=== PATIENT | female | born 1985 | race Hispanic/Latino ===

== ENCOUNTER 2021-09-08 17:34 | Inpatient (IN) | payer SELFPAY ==
[2021-09-08] MEDS ORDERED: NALOXONE 0.4 MG/1 ML INJ IV PRN (18:20)
[2021-09-08] MEDS ORDERED: ONDANSETRON 4 MG/2 ML INJ IV ONE (18:21)
--- NOTE | 2021-09-08 18:21 | Emergency Department Report ---
ED General Adult HPI - General Chief complaint: Medical Clearance Stated complaint: Patient has no complaint Time Seen by Provider: 09/08/21 18:08 Source: patient, EMS ( EMS documentation not available at time of chart dictation ), RN notes reviewed Mode of arrival: Stretcher Limitations: No Limitations - History of Present Illness Initial comments: The patient was evaluated in the emergency department for symptoms described in the history of present illness. He/she was evaluated in the context of the global COVID-19 pandemic, which necessitated consideration that the patient might be at risk for infection with the virus that causes COVID-19. In stitutional protocols and algorithms that pertain to the evaluation of patients at risk for COVID-19 are in a state of rapid change based on information released by regulatory bodies including the CDC and federal and state organizations. These policies and algorithms were followed during the patient's care in the emergency department. Please note that these policies, procedures and recommendations changed on a rapid basis. During the history and physical examination, I am chaperoned by nurse Lazara Garrison This is a 36-year-old female who reportedly admits to heroin addiction, who was reportedly found in bed unresponsive, next to her , 911 was activated. The patient has no recollection of these events. The patient denies physical pain. The patient did not receive Narcan. The patient usually snorts heroin. She did not snort heroin today. She is not homicidal or suicidal. Patient reports that she is not experiencing hallucinations. The patient does endorse that she feels somewhat anxious. Reportedly family members called 911. -: This afternoon - Related Data Previous Rx's Medication Instructions Recorded Last Taken Type Naloxone HCl [Narcan Nasal Howell] 4 mg NS PRN PRN #1 spray 09/08/21 Unknown Rx Ondansetron [Zofran Odt] 4 mg PO Q8HR PRN #20 tab.rapdis 09/08/21 Unknown Rx Allergies Allergy/AdvReac Type Severity Reaction Status Date / Time No Known Allergies Allergy Unverified 09/08/21 18:00 ED Review of Systems ROS: Stated complaint: SUBSTANCE ABUSE Other details as noted in HPI Constitutional: malaise, weakness. denies: fever Respiratory: denies: cough Cardiovascular: denies: chest pain Gastrointestinal: denies: abdominal pain Neurological: weakness, confusion Psychiatric: anxiety. denies: depression, auditory hallucinations, visual hallucinations, homicidal thoughts, suicidal thoughts ED Past Medical Hx - Past Medical History Previous Medical History?: No - Medications Home Medications: Home Medications Medication Instructions Recorded Confirmed Last Taken Type Naloxone HCl [Narcan Nasal Howell] 4 mg NS PRN PRN #1 spray 09/08/21 Unknown Rx Ondansetron [Zofran Odt] 4 mg PO Q8HR PRN #20 tab.rapdis 09/08/21 Unknown Rx ED Physical Exam - General Limitations: No Limitations General appearance: alert, anxious, in distress, obese - Head Head exam: Present: atraumatic, normocephalic - Eye Eye exam: Present: normal appearance, PERRL, EOMI. Absent: nystagmus - ENT ENT exam: Present: normal exam, normal orophraynx, mucous membranes moist, normal external ear exam - Neck Neck exam: Present: normal inspection, full ROM. Absent: tenderness, meningismus - Respiratory Respiratory exam: Present: normal lung sounds bilaterally. Absent: respiratory distress, wheezes, rales, rhonchi, stridor, decreased breath sounds - Cardiovascular Cardiovascular Exam: Present: regular rate, normal rhythm, normal heart sounds. Absent: bradycardia, tachycardia, irregular rhythm, systolic murmur, diastolic murmur, rubs, gallop - GI/Abdominal GI/Abdominal exam: Present: soft. Absent: distended, tenderness, guarding, rebound, rigid, pulsatile mass - Extremities Exam Extremities exam: Present: normal inspection, full ROM, other (2+ pulses noted in the bilateral upper and lower extremities. There is no palpable cord. negative Homans sign. Muscular compartments are soft. The pelvis is stable.). Absent: pedal edema, calf tenderness - Back Exam Back exam: Present: normal inspection. Absent: tenderness, CVA tenderness (R), CVA tenderness (L), paraspinal tenderness, vertebral tenderness - Neurological Exam Neurological exam: Present: alert, oriented X3, other (No facial droop. Tongue midline. Extraocular movements intact bilaterally. Facial sensation intact to light touch in V1, V2, V3 distribution bilaterally. 5 and a 5 strength in 4 extremities. Sensation intact to light touch in 4 extremities.). Absent: motor sensory deficit - Psychiatric Psychiatric exam: Present: anxious. Absent: homicidal ideation, suicidal ideation - Skin Skin exam: Present: warm, dry, intact, normal color. Absent: rash ED Course Vital Signs 09/08/21 18:51 Temperature 98.1 F Pulse Rate 70 Respiratory 21 Rate Blood Pressure 133/67 [Left] O2 Sat by Pulse 100 Oximetry - Reevaluation(s) Reevaluation #1: 09/08/21 20:20 Differential diagnosis, including but not limited to: Electrolyte derangement, intracranial injury, narcotic dependence, accidental overdose Assessment and plan: 36-year-old female who is clinically sober with a GCS of 15, with no evidence of trauma, who is awake and alert to name, year, and location, who was found minimally responsive next to her , without requiring Narcan. She has no medical complaints at this time. Suspect accidental overdose and that patient is not being forthcoming. The patient is agreeable to observation in the emergency room, laboratory studies and noncontrast CT scan of the brain. She does not meet criteria for 1013 hold or involuntary confinement. She has thus far been observed in department for hours without clinical decompensation, or loss of consciousness. Leukocytosis is most likely a stress reaction. Currently awaiting remainder of laboratory studies 09/08/21 20:49 Patient is found to have evidence of mild dehydration, metabolic acidosis, rhabdomyolysis, and hypokalemia. Serum toxicology studies so far are essentially unremarkable. No evidence of respiratory compromise at this time. IV fluids ordered. Potassium supplementation ordered. I suspect that leukocytosis is a stress reaction The patient is not encephalopathic at this time. She is not altered at this time. We have recommended admission to the medical service for supportive care and treatment of rhabdomyolysis. Suspect that rhabdo secondary to overdose, which in turn caused unresponsiveness, which is now resolved. Discussed all findings with patient and family with her permission. She is agreeable to admission and hospitalization Reevaluation #2: 09/08/21 20:50 Vital signs and laboratory studies reviewed and appreciated. Do not suspect invasive bacterial infection at this time. We appreciate that the patient is ruling in for systemic inflammatory response syndrome. Suspect that vital sign abnormalities and laboratory abnormalities likely secondary to overdose, and white blood cell count is likely a stress reaction/stress demargination 09/08/21 21:35 Patient remains awake and alert. Remainder of laboratory studies are essentially unremarkable. She is agreeable to admission and hospitalization. Hospital physician, Dr. Miller to admit to [facility] ED Medical Decision Making - Lab Data Result diagrams: 09/08/21 19:35 09/08/21 19:35 Vital Signs 09/08/21 18:51 Temperature 98.1 F Pulse Rate 70 Respiratory 21 Rate Blood Pressure 133/67 [Left] O2 Sat by Pulse 100 Oximetry - EKG Data -: EKG Interpreted by Pr - EKG Data 09/08/21 20:16 The EKG is interpreted at 18: 27 69 bpm, sinus rhythm, normal axis, normal P wave axis, QTC 5 4 5 ms, motion artifact. Abnormal EKG. Not a STEMI. There is no prior for comparison - Radiology Data Radiology results: pending, report reviewed, image reviewed CT head/brain wo con INDICATION: Overdose, unresponsiveness, amnesia. TECHNIQUE: Routine CT head. All CT scans at this location are performed using CT dose reduction for ALARA by means of automated exposure control. COMPARISON: None. FINDINGS: Intracranial: Mclean-white matter differentiation is maintained. No intracranial hemorrhage. No extra axial collection. No hydrocephalus. No herniation. Sinuses: Paranasal sinuses and mastoid air cells are essentially clear. Orbits: Globes are intact. Calvarium: No acute fracture. IMPRESSION: 1. No acute intracranial abnormality. Signer Name: Peter Villela MD Signed: 09/08 6:00 PM Critical Care Time: Yes Critical care time in (mins) excluding proc time.: 35 Critical care attestation.: If time is entered above; I have spent that time in minutes in the direct care of this critically ill patient, excluding procedure time. ED Disposition Clinical Impression: Opioid dependence, Transient alteration of awareness, Rhabdomyolysis, Hypokalemia, Metabolic acidosis Disposition: 09 ADMITTED INPATIENT Is pt being admited?: Yes Does the pt Need Aspirin: No Condition: Good Instructions: Opioid Use Disorder Additional Instructions: Do not drive or operate motor vehicles for the next 6 months or until cleared to do so by primary care doctor. Use the Narcan medication as directed, and nausea medication as needed and directed. Avoid consumption and utilization of alcohol, tobacco, smoke products and opioids. Consumption of opioids may cause addiction, , paralysis, loss of quality of life, and dependence. Follow-up with an outpatient primary care doctor, psychiatrist or mental health specialist as soon as possible. Please follow-up with an outpatient mental health specialist within the next week. Avoid consumption of alcohol, tobacco, smoke products and recreational drugs. Please return to the emergency room right away with new pain, worsened pain, migration of pain, projectile vomiting, change in mental status, confusion, inability tolerate liquid feeds, new, worsened or different symptoms not present on the initial emergency room evaluation professional and Agency Contacts To help [facility] (17/09) [place] Crisis Line: Suicide Prevention Line: Crisis Text Line: Text ``START to 243490 Emergency: 911 Outpatient [facility] Behavioral Health Resources: [place]: [facility] [address], [place] [address] [place]: [facility] [address] [place] [address] Saturday thru Saturday - 8am - 5pm Call to schedule an assessment for mental health and substance abuse programs [facility] Address: [address] [place] [address] Saturday thru Saturday- 7am-2pm [facility] Address: [address] [place] [address] Saturday thru Saturday: 8:30AM-5PM Please return to the emergency room right away with new pain, worsened pain, migration of pain, projectile vomiting, change in mental status, confusion, inability tolerate liquid feeds, new, worsened or different symptoms not present on the initial emergency room evaluation Prescriptions: Naloxone HCl [Narcan Nasal Howell] 4 mg NS PRN PRN #1 spray PRN Reason: Opioid Reversal Ondansetron [Zofran Odt] 4 mg PO Q8HR PRN #20 tab.rapdis PRN Reason: Nausea Referrals: [facility] [Provider Group] - 3-5 Days [facility] [Outside] - 3-5 Days [facility] [Outside] - 3-5 Days
--- NOTE | 2021-09-08 19:04 | Cat Scan Report ---
CT head/brain wo con INDICATION: Overdose, unresponsiveness, amnesia. TECHNIQUE: Routine CT head. All CT scans at this location are performed using CT dose reduction for A CHASE by means of automated exposure control. COMPARISON: None. FINDINGS: Intracranial: Mclean-white matter differentiation is maintained. No intracranial hemorrhage. No extra a xial collection. No hydrocephalus. No herniation. Sinuses: Paranasal sinuses and mastoid air cells are essentially clear. Orbits: Globes are intact. Calvarium: No acute fracture. IMPRESSION: 1. No acute intracranial abnormality. Signer Name: Peter Villela MD Signed: 09/08/2021 7:00 PM Workstation Name: [id number]
[2021-09-08] MEDS ORDERED: ONDANSETRON 4 MG ODT TAB PO ONE (19:19)
[2021-09-08 20:00] LABS: Hematocrit 46.1 % (30.3-42.9); Hemoglobin 15.5 gm/dl (10.1-14.3); Mean Corpuscular HGB Conc 34 % (30-34); Mean Corpuscular Volume 87 fl (79-97); Platelet Count 426 K/mm3 (140-440); Red Blood Count 5.28 M/mm3 (3.65-5.03); Red Cell Distribution Width 13.7 % (13.2-15.2)
[2021-09-08 20:29] LABS: Alanine Aminotransferase 41 units/L (7-56); Blood Urea Nitrogen 18 mg/dL (7-17); Calcium 10.6 mg/dL (8.4-10.2); Hemolysis Index 39
[2021-09-08 20:39] LABS: BUN/Creatinine Ratio 26
[2021-09-08] MEDS ORDERED: SODIUM CHLORIDE 0.9% 1000 ML 2,000 ML IV ONE (20:43)
[2021-09-08] MEDS ORDERED: POTASSIUM CHLORIDE ER 20 MEQ TAB PO ONE (20:43)
[2021-09-08] MEDS ORDERED: ACETAMINOPHEN 325 MG TAB PO PRN (22:08)
[2021-09-08] MEDS ORDERED: MORPHINE 2 MG/1 ML INJ IV PRN (22:08)
[2021-09-08] MEDS ORDERED: ONDANSETRON 4 MG/2 ML INJ IV PRN (22:08)
[2021-09-08] MEDS ORDERED: MORPHINE 4 MG/1 ML INJ IV PRN (22:08)
[2021-09-08] MEDS ORDERED: ALBUTEROL 2.5 MG/3 ML NEBU IH PRN (22:08)
--- NOTE | 2021-09-08 22:15 | History and Physical Report ---
History of Present Illness Date of examination: 09/08/21 Date of admission: 09/08/21 Chief complaint: Opiate overdose History of present illness: 36-year-old female with history of heroin addiction, who was reportedly found in bed unresponsive, next to her , 911 was activated. The patient has no recollection of these events. The patient denies physical pain. The patient did not receive Narcan. The patient usually snorts heroin. She did not snort heroin today. She is not homicidal or suicidal. Patient reports that she is not experiencing hallucinations. The patient does endorse that she feels somewhat anxious. Reportedly family members called 911. In the emergency room initial CT scan of the head shows no acute intracranial abnormality. Patient WBC is 26.9, potassium 3.4 bicarb 22 total CK5 143. We are going to admit the patient we will put the patient on IV fluid, antibiotic and potassium is supplemented Past History Past Medical History: other (Heroin addiction) Past Surgical History: No surgical history Social history: other (Heroin addiction) Family history: no significant family history Medications and Allergies Allergies Allergy/AdvReac Type Severity Reaction Status Date / Time No Known Allergies Allergy Unverified 09/08/21 18:00 Home Medications Medication Instructions Recorded Confirmed Last Taken Type Naloxone HCl [Narcan Nasal [place]] 4 mg NS PRN PRN #1 spray 09/08/21 Unknown Rx Ondansetron [Zofran Odt] 4 mg PO Q8HR PRN #20 tab.rapdis 09/08/21 Unknown Rx Active Meds: Active Medications Acetaminophen (Acetaminophen 325 Mg Tab) 650 mg PO Q4H PRN PRN Reason: Pain MILD(1-3)/Fever >100.5/JERONIMO Albuterol (Albuterol 2.5 Mg/3 Ml Nebu) 2.5 mg IH Q3HRT PRN PRN Reason: Shortness Of Breath Albuterol/Ipratropium (Ipratropium/Albuterol Sulfate 3 Ml Ampul.Neb) 1 ampul IH Q6HRT SAMANTHA Famotidine (Famotidine 20 Mg/2 Ml Inj) 20 mg IV BID SAMANTHA Heparin Sodium (Porcine) (Heparin 5,000 Unit/1 Ml Vial) 5,000 unit SUB-Q Q12HR SAMANTHA Dextrose/Sodium Chloride (D5/0.45ns) 1,000 mls @ 100 mls/hr IV DIRECT SAMANTHA Ceftriaxone Sodium (Rocephin/Ns 2 Gm/100 Ml) 2 gm in 100 mls @ 200 mls/hr IV Q24H SAMANTHA; Protocol Morphine Sulfate (Morphine 2 Mg/1 Ml Inj) 2 mg IV Q4H PRN PRN Reason: Pain, Moderate (4-6) Morphine Sulfate (Morphine 4 Mg/1 Ml Inj) 4 mg IV Q4H PRN PRN Reason: Pain , Severe (7-10) Naloxone HCl (Naloxone 0.4 Mg/1 Ml Inj) 0.1 mg IV Q2MIN PRN PRN Reason: Res Rate </= 8 or 02 SAT < 92% Ondansetron HCl (Ondansetron 4 Mg/2 Ml Inj) 4 mg IV Q8H PRN PRN Reason: Nausea And Vomiting Sodium Chloride (Sodium Chloride 0.9% 10 Ml Flush Syringe) 10 ml IV BID SAMANTHA Sodium Chloride (Sodium Chloride 0.9% 10 Ml Flush Syringe) 10 ml IV PRN PRN PRN Reason: LINE FLUSH Review of Systems All systems: negative Constitutional: weakness (Confusion), malaise, other (Unresponsiveness) Exam - Constitutional Vitals: Temp Pulse Resp BP Pulse Ox 98.1 F 70 21 133/67 100 09/08/21 18:51 09/08/21 18:51 09/08/21 18:51 09/08/21 18:51 09/08/21 18:51 General appearance: Present: no acute distress, well-nourished - EENT Eyes: Present: PERRL ENT: hearing intact, clear oral mucosa - Neck Neck: Present: supple, normal ROM - Respiratory Respiratory effort: normal Respiratory: bilateral: CTA - Cardiovascular Heart Sounds: Present: S1 & S2. Absent: rub, click - Extremities Extremities: pulses symmetrical, No edema Peripheral Pulses: within normal limits - Abdominal General gastrointestinal: Present: soft, non-tender, non-distended, normal bowel sounds Female genitourinary: Present: normal - Integumentary Integumentary: Present: clear, warm, dry - Musculoskeletal Musculoskeletal: gait normal, strength equal bilaterally - Neurologic Neurologic: CNII-XII intact, moves all extremities Results - Labs CBC & Chem 7: 09/08/21 19:35 09/08/21 19:35 Labs: Laboratory Last Values WBC 26.9 K/mm3 (4.5-11.0) H 09/08/21 19:35 RBC 5.28 M/mm3 (3.65-5.03) H 09/08/21 19:35 Hgb 15.5 gm/dl (10.1-14.3) H 09/08/21 19:35 Hct 46.1 % (30.3-42.9) H 09/08/21 19:35 MCV 87 fl (79-97) 09/08/21 19:35 MCH 29 pg (28-32) 09/08/21 19:35 MCHC 34 % (30-34) 09/08/21 19:35 RDW 13.7 % (13.2-15.2) 09/08/21 19:35 Plt Count 426 K/mm3 (140-440) 09/08/21 19:35 Sodium 138 mmol/L (137-145) 09/08/21 19:35 Potassium 3.4 mmol/L (3.6-5.0) L 09/08/21 19:35 Chloride 97.4 mmol/L (98-107) L 09/08/21 19:35 Carbon Dioxide 22 mmol/L (22-30) 09/08/21 19:35 Anion Gap 22 mmol/L 09/08/21 19:35 BUN 18 mg/dL (7-17) H 09/08/21 19:35 Creatinine 0.7 mg/dL (0.6-1.2) 09/08/21 19:35 Estimated GFR > 60 ml/min 09/08/21 19:35 BUN/Creatinine Ratio 26 % 09/08/21 19:35 Glucose 133 mg/dL (65-100) H 09/08/21 19:35 Calcium 10.6 mg/dL (8.4-10.2) H 09/08/21 19:35 Total Bilirubin 0.60 mg/dL (0.1-1.2) 09/08/21 19:35 AST 88 units/L (5-40) H 09/08/21 19:35 ALT 41 units/L (7-56) 09/08/21 19:35 Alkaline Phosphatase 123 units/L (35-129) 09/08/21 19:35 Total Creatine Kinase 5143 units/L (30-135) H 09/08/21 19:35 Total Protein 7.8 g/dL (6.3-8.2) 09/08/21 19:35 Albumin 5.0 g/dL (3.9-5) 09/08/21 19:35 Albumin/Globulin Ratio 1.8 % 09/08/21 19:35 HCG, Quant < 2 mIU/mL (0-4) 09/08/21 19:35 Salicylates < 0.3 mg/dL (2.8-20.0) L 09/08/21 19:35 Acetaminophen 5.0 ug/mL (10.0-30.0) L 09/08/21 19:35 Plasma/Serum Alcohol < 0.01 % (0-0.07) 09/08/21 19:35 - Imaging and Cardiology CT Scan - head: report reviewed Assessment and Plan VTE prophylaxis?: Chemical Plan of care discussed with patient/family: Yes - Patient Problems (1) Rhabdomyolysis Current Visit: Yes Status: Acute Plan to address problem: Admit the patient to the telemetry. NPO. IV fluid D5 half-normal saline at the rate of 125 cc/h. We will recheck the CK level in the morning. (2) Hypokalemia Current Visit: Yes Status: Acute Plan to address problem: Potassium is supplemented. Recheck BMP in the morning (3) Metabolic acidosis Current Visit: Yes Status: Acute Plan to address problem: D5 half-normal saline at the rate of 125 cc/h. We rehydrate the patient is slowly. Recheck BMP in the morning (4) Opioid dependence Current Visit: Yes Status: Acute Plan to address problem: We counseled the patient regarding quit taking opioid. We will consult psych for evaluation (5) Transient alteration of awareness Current Visit: Yes Status: Acute Plan to address problem: Most likely secondary to opiate overdose. NPO. Oxygen via nasal cannula t reater pulmonate IV fluid D5 half-normal saline at the rate of 125 cc/h. We will monitor the patient closely. CT scan of the head shows no acute intracranial abnormality (6) Leukocytosis Current Visit: Yes Status: Acute Plan to address problem: Rocephin 2 g IV daily. We will check the blood culture and urine culture. Recheck CBC in the morning (7) DVT prophylaxis Current Visit: Yes Status: Acute Plan to address problem: Heparin 5000 units subcu every 12 hours for DVT prophylaxis Pepcid 20 mg IV ever y 12 hours for GI prophylaxis. Patient is a full code
[2021-09-08] MEDS: cefTRIAXone/NS 2 GM/100 ML 2 GM/100 ML BAG IV SCH (22:54)
[2021-09-08] MEDS ORDERED: D5W/0.45% NACL 1,000 ML IV SCH (23:00)
[2021-09-09] MEDS ORDERED: IPRATROPIUM/ALBUTEROL SULFATE 3 ML AMPUL.NEB IH SCH (02:00)
[2021-09-09 07:16] LABS: Hematocrit 43.6 % (30.3-42.9); Hemoglobin 15.5 gm/dl (10.1-14.3); Mean Corpuscular HGB Conc 36 % (30-34); Mean Corpuscular Volume 87 fl (79-97); Platelet Count 361 K/mm3 (140-440); Red Blood Count 5.04 M/mm3 (3.65-5.03); Red Cell Distribution Width 13.4 % (13.2-15.2)
[2021-09-09 07:45] LABS: Alanine Aminotransferase 75 units/L (7-56); Albumin 4.7 g/dL (3.9-5); BUN/Creatinine Ratio 21; Blood Urea Nitrogen 17 mg/dL (7-17); Calcium 9.9 mg/dL (8.4-10.2); Hemolysis Index 34
[2021-09-09] MEDS ORDERED: LACTATED RINGERS 1,000 ML IV SCH (09:00)
[2021-09-09] MEDS ORDERED: HEPARIN 5,000 UNIT/1 ML VIAL SUB-Q SCH (10:00)
[2021-09-09] MEDS: ENOXAPARIN 40 MG/0.4 ML INJ SUB-Q SCH (10:02)
[2021-09-09] MEDS: FAMOTIDINE 20 MG/2 ML INJ IV SCH ×2 (10:02→22:43)
[2021-09-09] MEDS: POTASSIUM CHLORIDE 10 MEQ 10 MEQ/100 ML BAG IV SCH ×3 (10:18→12:24)
[2021-09-09 11:15] LABS: Band Neutrophils # (Manual) 0.2 K/mm3; Eosinophils % (Manual) 0 % (0.0-4.3); Platelet Estimate Consistent w Auto; RBC Morphology Normal; Total Cells Counted 100
[2021-09-09] MEDS: POTASSIUM CHLORIDE ER 20 MEQ TAB PO ONE ×2 (12:12→12:26)
--- NOTE | 2021-09-09 12:54 | Consultation ---
History of Present Illness - Reason for Consult Consult date: 09/09/21 Reason for consult: OD - History of Present Psychiatric Illness The patient was seen today. The patient's mother is at bedside. The patient give me permission to speak in front of her mother. She is lying in bed awake. She is just staring. Her affect is flat. She is guarded. She has thought blocking. I'm having to ask the patient the same question several times in order to get her to respond. I ask the patient's mother to leave the room, to see if the patient would speak to me. She still just mostly lays there. The patient expressed feeling depressed and anxious. She says this has happened before where she's taken the drugs but states not this bad. She endorsed doing heroine and meth. The patient would not answer when asking was she suicidal. She just laid there. I ask the patient was she hearing or seeing things, she replies "I think so." I spoke with the patient's mother after the evaluation. She says she doesn't believe the patient is aware that her significant other has passed. The patient's mother says she feels that the patient needs inpatient treatment due to the circumstances. She says "I don't think she should be released. It has never been this bad." Will recommend acute psychiatric inpatient treatment and stabilize the patient on medications. PAST PSYCHIATRIC HISTORY: Diagnoses: depression and anxiety Suicide attempts or Self-harm behavior: No Prior psychiatric hospitalizations: Yes Substance Abuse history: heroine and meth Previous psychiatric medications tried: xanax Outpatient treatment: Denies PAST MEDICAL HISTORY: None documented or reported Family Psychiatric History: None reported or documented SOCIAL HISTORY Marital Status: Single Living Arrangements: with mother Employment Status: Unemployed Access to guns/weapons: Denies Education: History of Abuse: Denies Legal History: Denies ROS: Constitutional: Negative for weight loss ENT: Negative for stridor Respiratory: Negative for cough or hemoptysis All other systems reviewed and are negative MENTAL STATUS General Appearance and Behavior: age appropriate, evasive, guarded, poor eye contact Psychomotor Behavior: within normal limits Mood: depressed, anxious Affect and affective range: flat Thought Process: thought blocking Thought Content: illogical Speech: Normal volume and Regular rate and rhythm Suicidal Ideation: would not answer. Possibly passive Homicidal Ideation: Denies HI Hallucinations: "I think so" Impulse Control: impaired Insight and Judgment: poor Memory: poor Attention: poor Orientation: alert Assessment Opiate Overdose Major Depressive Disorder Treatment Plan 1013 Doxepin 10mg po qhs Depakote DR 125mg po BID Abilify 5mg po daily Medical: per primary Sitter: defer to primary Disposition: Recommend acute psychiatric inpatient treatment Will follow. Thanks. Case staffed by Dr. Urena Medications and Allergies Allergies Allergy/AdvReac Type Severity Reaction Status Date / Time No Known Allergies Allergy Verified 09/08/21 22:14 Home Medications Medication Instructions Recorded Confirmed Last Taken Type Naloxone HCl [Narcan Nasal [place]] 4 mg NS PRN PRN #1 spray 09/08/21 Unknown Rx Ondansetron [Zofran Odt] 4 mg PO Q8HR PRN #20 tab.rapdis 09/08/21 Unknown Rx Active Meds: Active Medications Acetaminophen (Acetaminophen 325 Mg Tab) 650 mg PO Q4H PRN PRN Reason: Pain MILD(1-3)/Fever >100.5/JERONIMO Albuterol (Albuterol 2.5 Mg/3 Ml Nebu) 2.5 mg IH Q3HRT PRN PRN Reason: Shortness Of Breath Enoxaparin Sodium (Enoxaparin 40 Mg/0.4 Ml Inj) 40 mg SUB-Q DAILY SAMANTHA; Protocol Last Admin: 09/09/21 10:02 Dose: 40 mg Famotidine (Famotidine 20 Mg/2 Ml Inj) 20 mg IV BID SAMANTHA Last Admin: 09/09/21 10:02 Dose: 20 mg Ceftriaxone Sodium (Rocephin/Ns 2 Gm/100 Ml) 2 gm in 100 mls @ 200 mls/hr IV Q24H SAMANTHA; Protocol Last Admin: 09/08/21 22:54 Dose: 200 mls/hr Potassium Chloride (Kcl 10meq/100ml) 10 meq in 100 mls @ 100 mls/hr IV Q1H SAMANTHA Stop: 09/09/21 12:59 Last Admin: 09/09/21 12:24 Dose: 100 mls/hr Morphine Sulfate (Morphine 2 Mg/1 Ml Inj) 2 mg IV Q4H PRN PRN Reason: Pain, Moderate (4-6) Morphine Sulfate (Morphine 4 Mg/1 Ml Inj) 4 mg IV Q4H PRN PRN Reason: Pain , Severe (7-10) Naloxone HCl (Naloxone 0.4 Mg/1 Ml Inj) 0.1 mg IV Q2MIN PRN PRN Reason: Res Rate </= 8 or 02 SAT < 92% Ondansetron HCl (Ondansetron 4 Mg/2 Ml Inj) 4 mg IV Q8H PRN PRN Reason: Nausea And Vomiting Sodium Chloride (Sodium Chloride 0.9% 10 Ml Flush Syringe) 10 ml IV BID SAMANTHA Last Admin: 09/09/21 10:02 Dose: 10 ml Sodium Chloride (Sodium Chloride 0.9% 10 Ml Flush Syringe) 10 ml IV PRN PRN PRN Reason: LINE FLUSH Mental Status Exam - Vital signs Last Vital Signs Temp 97.8 F 09/09/21 08:31 Pulse 55 L 09/09/21 08:31 Resp 18 09/09/21 08:31 BP 122/52 09/09/21 08:31 Pulse Ox 96 09/09/21 10:36 Results Result Diagrams: 09/09/21 06:28 09/09/21 06:28 Abnormal lab results 09/08/21 09/08/21 09/08/21 Range/Units 19:35 19:35 19:35 WBC 26.9 H (4.5-11.0) K/mm3 RBC 5.28 H (3.65-5.03) M/mm3 Hgb 15.5 H (10.1-14.3) gm/dl Hct 46.1 H (30.3-42.9) % MCHC (30-34) % Seg Neuts % (Manual) (40.0-70.0) % Lymphocytes % (Manual) (13.4-35.0) % Seg Neutrophils # Man (1.8-7.7) K/mm3 Monocytes # (Manual) (0.0-0.8) K/mm3 Basophils # (Manual) (0.0-0.1) K/mm3 Potassium 3.4 L (3.6-5.0) mmol/L Chloride 97.4 L (98-107) mmol/L BUN 18 H (7-17) mg/dL Glucose 133 H (65-100) mg/dL Calcium 10.6 H (8.4-10.2) mg/dL AST 88 H (5-40) units/L ALT (7-56) units/L Total Creatine Kinase 5143 H (30-135) units/L Salicylates < 0.3 L (2.8-20.0) mg/dL Acetaminophen (10.0-30.0) ug/mL 09/08/21 09/09/21 09/09/21 Range/Units 19:35 06:28 06:28 WBC 21.2 H (4.5-11.0) K/mm3 RBC 5.04 H (3.65-5.03) M/mm3 Hgb 15.5 H (10.1-14.3) gm/dl Hct 43.6 H (30.3-42.9) % MCHC 36 H (30-34) % Seg Neuts % (Manual) 83.0 H (40.0-70.0) % Lymphocytes % (Manual) 10.0 L (13.4-35.0) % Seg Neutrophils # Man 17.6 H (1.8-7.7) K/mm3 Monocytes # (Manual) 1.1 H (0.0-0.8) K/mm3 Basophils # (Manual) 0.2 H (0.0-0.1) K/mm3 Potassium 3.4 L (3.6-5.0) mmol/L Chloride (98-107) mmol/L BUN (7-17) mg/dL Glucose 159 H (65-100) mg/dL Calcium (8.4-10.2) mg/dL AST 152 H (5-40) units/L ALT 75 H (7-56) units/L Total Creatine Kinase (30-135) units/L Salicylates (2.8-20.0) mg/dL Acetaminophen 5.0 L (10.0-30.0) ug/mL 09/09/21 Range/Units 11:17 WBC (4.5-11.0) K/mm3 RBC (3.65-5.03) M/mm3 Hgb (10.1-14.3) gm/dl Hct (30.3-42.9) % MCHC (30-34) % Seg Neuts % (Manual) (40.0-70.0) % Lymphocytes % (Manual) (13.4-35.0) % Seg Neutrophils # Man (1.8-7.7) K/mm3 Monocytes # (Manual) (0.0-0.8) K/mm3 Basophils # (Manual) (0.0-0.1) K/mm3 Potassium (3.6-5.0) mmol/L Chloride (98-107) mmol/L BUN (7-17) mg/dL Glucose (65-100) mg/dL Calcium (8.4-10.2) mg/dL AST (5-40) units/L ALT (7-56) units/L Total Creatine Kinase 7274 H (30-135) units/L Salicylates (2.8-20.0) mg/dL Acetaminophen (10.0-30.0) ug/mL All other labs normal.
--- NOTE | 2021-09-09 13:45 | Progress Note ---
Assessment and Plan Assessment and plan: #Unintentional opioid overdose #Opioid withdrawal #Polysubstance dependence #1013 According to patient's mother and chart review, the patient has been snorting heroin for 10 years. Patient was found unresponsive at home by family and EMS was called. Patient will begin to undergo opioid withdrawal while being hospitalized. Continue supportive management. Psychiatry consulted; appreciate recs. Patient placed under 1013. -Patient engages in the following substances: Heroin -Counseled patient about the importance of cessation of substance abuse. Offered resources to help with quitting. Patient expresses understanding. -Time: +15 mins #Rhabdomyolysis Creatine kinase 5143 Likely secondary to opioid overdose and patient being found unresponsive at home. Encouraging p.o. intake. Continue to trend creatine kinase. #Leukocytosis WBC 27--> 21.2 Possibly secondary to stress response--> Demarginalization Ordered blood cultures. Continue Rocephin 1 g every 24 hours. If blood cu ltures unremarkable x48 hours, antibiotics can be discontinued. Continue to monitor with daily CBC. #Elevated transaminases AST 152, ALT 75 Possibly secondary to substance abuse. Ordering hepatitis panel. No current intervention necessary at this time for elevated transaminases. Continue to monitor with repeat CMP tomorrow. #Metabolic acidosisresolved #Hypokalemia Potassium 3.4 Repleting. Continue to monitor with repeat BMP in the morning. #Advanced care planning -Disease education conducted, care plan discussed, diagnoses discussed, prognosis discussed, and patient acknowledges understanding with care plan -Time: +30 min Disposition Plan: Continue medical management Total Time Spent with Patient (Minutes): 45 minutes History Interval history: No acute events overnight. Hospitalist Physical - Constitutional Vitals: Temp Pulse Resp BP Pulse Ox 97.8 F 55 L 18 122/52 96 09/09/21 08:31 09/09/21 08:31 09/09/21 12:59 09/09/21 08:31 09/09/21 12:59 General appearance: Present: no acute distress, well-nourished - EENT Eyes: Present: PERRL, EOM intact ENT: hearing intact, clear oral mucosa, dentition normal - Neck Neck: Present: supple, normal ROM - Respiratory Respiratory effort: normal Respiratory: bilateral: CTA - Cardiovascular Rhythm: regular Heart Sounds: Present: S1 & S2 - Extremities Extremities: no ischemia, pulses intact, pulses symmetrical, No edema, normal temperature, normal color Peripheral Pulses: within normal limits - Abdominal General gastrointestinal: soft, non-tender, non-distended, normal bowel sounds - Integumentary Integumentary: Present: clear, warm, dry - Psychiatric Psychiatric: cooperative, other (Slow to respond) - Neurologic Neurologic: CNII-XII intact, moves all extremities - Allied Health Allied health notes reviewed: nursing Results - Labs CBC & Chem 7: 09/09/21 06:28 09/09/21 06:28 Labs: Laboratory Last Values WBC 21.2 K/mm3 (4.5-11.0) H 09/09/21 06:28 RBC 5.04 M/mm3 (3.65-5.03) H 09/09/21 06:28 Hgb 15.5 gm/dl (10.1-14.3) H 09/09/21 06:28 Hct 43.6 % (30.3-42.9) H 09/09/21 06:28 MCV 87 fl (79-97) 09/09/21 06:28 MCH 31 pg (28-32) 09/09/21 06:28 MCHC 36 % (30-34) H 09/09/21 06:28 RDW 13.4 % (13.2-15.2) 09/09/21 06:28 Plt Count 361 K/mm3 (140-440) 09/09/21 06:28 Add Manual Diff Complete 09/09/21 06:28 Total Counted 100 09/09/21 06:28 Seg Neuts % (Manual) 83.0 % (40.0-70.0) H 09/09/21 06:28 Band Neutrophils % 1.0 % 09/09/21 06:28 Lymphocytes % (Manual) 10.0 % (13.4-35.0) L 09/09/21 06:28 Reactive Lymphs % (Man) 0 % 09/09/21 06:28 Monocytes % (Manual) 5.0 % (0.0-7.3) 09/09/21 06:28 Eosinophils % (Manual) 0 % (0.0-4.3) 09/09/21 06:28 Basophils % (Manual) 1.0 % (0.0-1.8) 09/09/21 06:28 Metamyelocytes % 0 % 09/09/21 06:28 Myelocytes % 0 % 09/09/21 06:28 Promyelocytes % 0 % 09/09/21 06:28 Blast Cells % 0 % 09/09/21 06:28 Nucleated RBC % Not Reportable 09/09/21 06:28 Seg Neutrophils # Man 17.6 K/mm3 (1.8-7.7) H 09/09/21 06:28 Band Neutrophils # 0.2 K/mm3 09/09/21 06:28 Lymphocytes # (Manual) 2.1 K/mm3 (1.2-5.4) 09/09/21 06:28 Abs React Lymphs (Man) 0.0 K/mm3 09/09/21 06:28 Monocytes # (Manual) 1.1 K/mm3 (0.0-0.8) H 09/09/21 06:28 Eosinophils # (Manual) 0.0 K/mm3 (0.0-0.4) 09/09/21 06:28 Basophils # (Manual) 0.2 K/mm3 (0.0-0.1) H 09/09/21 06:28 Metamyelocytes # 0.0 K/mm3 09/09/21 06:28 Myelocytes # 0.0 K/mm3 09/09/21 06:28 Promyelocytes # 0.0 K/mm3 09/09/21 06:28 Blast Cells # 0.0 K/mm3 09/09/21 06:28 WBC Morphology Not Reportable 09/09/21 06:28 Hypersegmented Neuts Not Reportable 09/09/21 06:28 Hyposegmented Neuts Not Reportable 09/09/21 06:28 Hypogranular Neuts Not Reportable 09/09/21 06:28 Smudge Cells Not Reportable 09/09/21 06:28 Toxic Granulation Not Reportable 09/09/21 06:28 Toxic Vacuolation Not Reportable 09/09/21 06:28 Dohle Bodies Not Reportable 09/09/21 06:28 Pelger-Huet Anomaly Not Reportable 09/09/21 06:28 Jeannine Rods Not Reportable 09/09/21 06:28 Platelet Estimate Consistent w auto 09/09/21 06:28 Clumped Platelets Not Reportable 09/09/21 06:28 Plt Clumps, EDTA Not Reportable 09/09/21 06:28 Large Platelets Not Reportable 09/09/21 06:28 Giant Platelets Not Reportable 09/09/21 06:28 Platelet Satelliting Not Reportable 09/09/21 06:28 Plt Morphology Comment Not Reportable 09/09/21 06:28 RBC Morphology Normal 09/09/21 06:28 Dimorphic RBCs Not Reportable 09/09/21 06:28 Polychromasia Not Reportable 09/09/21 06:28 Hypochromasia Not Reportable 09/09/21 06:28 Poikilocytosis Not Reportable 09/09/21 06:28 Anisocytosis Not Reportable 09/09/21 06:28 Microcytosis Not Reportable 09/09/21 06:28 Macrocytosis Not Reportable 09/09/21 06:28 Spherocytes Not Reportable 09/09/21 06:28 Pappenheimer Bodies Not Reportable 09/09/21 06:28 Sickle Cells Not Reportable 09/09/21 06:28 Target Cells Not Reportable 09/09/21 06:28 Tear Drop Cells Not Reportable 09/09/21 06:28 Ovalocytes Not Reportable 09/09/21 06:28 Helmet Cells Not Reportable 09/09/21 06:28 [place] Bodies Not Reportable 09/09/21 06:28 [place] Rings Not Reportable 09/09/21 06:28 Bryce Cells Not Reportable 09/09/21 06:28 Bite Cells Not Reportable 09/09/21 06:28 Crenated Cell Not Reportable 09/09/21 06:28 Elliptocytes Not Reportable 09/09/21 06:28 Acanthocytes (Spur) Not Reportable 09/09/21 06:28 Rouleaux Not Reportable 09/09/21 06:28 Hemoglobin C Crystals Not Reportable 09/09/21 06:28 Schistocytes Not Reportable 09/09/21 06:28 Malaria parasites Not Reportable 09/09/21 06:28 Peter Bodies Not Reportable 09/09/21 06:28 Hem Pathologist Commnt No 09/09/21 06:28 Sodium 140 mmol/L (137-145) 09/09/21 06:28 Potassium 3.4 mmol/L (3.6-5.0) L 09/09/21 06:28 Chloride 99.2 mmol/L (98-107) 09/09/21 06:28 Carbon Dioxide 27 mmol/L (22-30) 09/09/21 06:28 Anion Gap 17 mmol/L 09/09/21 06:28 BUN 17 mg/dL (7-17) 09/09/21 06:28 Creatinine 0.8 mg/dL (0.6-1.2) 09/09/21 06:28 Estimated GFR > 60 ml/min 09/09/21 06:28 BUN/Creatinine Ratio 21 % 09/09/21 06:28 Glucose 159 mg/dL (65-100) H 09/09/21 06:28 Calcium 9.9 mg/dL (8.4-10.2) 09/09/21 06:28 Total Bilirubin 0.60 mg/dL (0.1-1.2) 09/09/21 06:28 AST 152 units/L (5-40) H 09/09/21 06:28 ALT 75 units/L (7-56) H 09/09/21 06:28 Alkaline Phosphatase 110 units/L (35-129) 09/09/21 06:28 Total Creatine Kinase 7274 units/L (30-135) H 09/09/21 11:17 Total Protein 7.6 g/dL (6.3-8.2) 09/09/21 06:28 Albumin 4.7 g/dL (3.9-5) 09/09/21 06:28 Albumin/Globulin Ratio 1.6 % 09/09/21 06:28 HCG, Quant < 2 mIU/mL (0-4) 09/08/21 19:35 Salicylates < 0.3 mg/dL (2.8-20.0) L 09/08/21 19:35 Acetaminophen 5.0 ug/mL (10.0-30.0) L 09/08/21 19:35 Plasma/Serum Alcohol < 0.01 % (0-0.07) 09/08/21 19:35 Pinedo/IV: Voiding Method External Female Catheter Active Medications - Current Medications Current Medications: Generic Name Dose Route Start Last Admin Trade Name Freq PRN Reason Stop Dose Admin Acetaminophen 650 mg 09/08/21 22:08 Acetaminophen 325 Mg Tab PO Q4H PRN Pain MILD(1-3)/Fever >100.5/JERONIMO Albuterol 2.5 mg 09/08/21 22:08 Albuterol 2.5 Mg/3 Ml Nebu IH Q3HRT PRN Shortness Of Breath Aripiprazole 5 mg 09/09/21 13:00 Aripiprazole 5 Mg Tab PO QDAY [facility] Divalproex Sodium 125 mg 09/09/21 13:[address] 125 Mg Tab PO BID SAMANTHA Doxepin HCl 10 mg 09/09/21 22:00 Doxepin 10 Mg Cap PO QHS SAMANTHA Enoxaparin Sodium 40 mg 09/09/21 10:00 09/09/21 10:02 Enoxaparin 40 Mg/0.4 Ml Inj SUB-Q 40 mg DAILY SAMANTHA Administration Protocol Famotidine 20 mg 09/09/21 10:00 09/09/21 10:02 Famotidine 20 Mg/2 Ml Inj IV 20 mg BID SAMANTHA Administration Ceftriaxone Sodium 2 gm in 100 mls @ 200 mls/hr 09/08/21 23:00 09/08/21 22:54 Rocephin/Ns 2 Gm/100 Ml IV 200 mls/hr Q24H SAMANTHA Administration Protocol Morphine Sulfate 2 mg 09/08/21 22:08 Morphine 2 Mg/1 Ml Inj IV Q4H PRN Pain, Moderate (4-6) Morphine Sulfate 4 mg 09/08/21 22:08 Morphine 4 Mg/1 Ml Inj IV Q4H PRN Pain , Severe (7-10) Naloxone HCl 0.1 mg 09/08/21 18:20 Naloxone 0.4 Mg/1 Ml Inj IV Q2MIN PRN Res Rate </= 8 or 02 SAT < 92% Ondansetron HCl 4 mg 09/08/21 22:08 Ondansetron 4 Mg/2 Ml Inj IV Q8H PRN Nausea And Vomiting Sodium Chloride 10 ml 09/09/21 10:00 09/09/21 10:02 Sodium Chloride 0.9% 10 Ml Flush Syringe IV 10 ml BID SAMANTHA Administration Sodium Chloride 10 ml 09/08/21 22:08 Sodium Chloride 0.9% 10 Ml Flush Syringe IV PRN PRN LINE FLUSH
[2021-09-09] MEDS: DIVALPROEX DR 125 MG TAB PO SCH ×2 (15:26→22:43)
[2021-09-09] MEDS: ARIPiprazole 5 MG TAB PO SCH (15:26)
[2021-09-09] MEDS ORDERED: DOXEPIN 10 MG CAP PO SCH (22:00)
[2021-09-09] MEDS: cefTRIAXone/NS 2 GM/100 ML 2 GM/100 ML BAG IV SCH (23:24)
[2021-09-10 06:53] LABS: Alanine Aminotransferase 76 units/L (7-56); Albumin 4.2 g/dL (3.9-5); Blood Urea Nitrogen 15 mg/dL (7-17); Calcium 9.5 mg/dL (8.4-10.2); Hemolysis Index 3
[2021-09-10 06:56] LABS: BUN/Creatinine Ratio 21
[2021-09-10] MEDS ORDERED: SODIUM CHLORIDE 0.9% 500 ML 500 ML ONE (09:47)
[2021-09-10] MEDS: ARIPiprazole 5 MG TAB PO SCH (10:05)
[2021-09-10] MEDS: ENOXAPARIN 40 MG/0.4 ML INJ SUB-Q SCH (10:05)
[2021-09-10] MEDS: POTASSIUM CHLORIDE 10 MEQ 10 MEQ/100 ML BAG IV SCH ×2 (10:09→15:46)
[2021-09-10] MEDS: FAMOTIDINE 20 MG TAB PO SCH ×3 (10:12→22:55)
[2021-09-10] MEDS: DIVALPROEX DR 125 MG TAB PO SCH (10:30)
--- NOTE | 2021-09-10 10:36 | Progress Note ---
Subjective - Reason for Consult Consult date: 09/10/21 Reason for consult: Heroine OD - Chief Complaint Chief complaint: The patient was seen today. She is quiet. She has slight tremors and appears anxious. She appears withdrawn. Her affect if flat. She has poor insight into the circumstances surrounding her admission. I ask the patient if she knew what happened, she says "we're going through withdrawals." She believes her boyfriend is two rooms down. The patient endorses depression. When asked was she suicidal/homicidal, she shakes her head. Due to the circumstances, the patient runs the risk of further deterioration in her mental health. Will continue to treat and recommend acute psychiatric inpatient treatment. ROS: Constitutional: Negative for weight loss ENT: Negative for stridor Respiratory: Negative for cough or hemoptysis All other systems reviewed and are negative MENTAL STATUS General Appearance and Behavior: age appropriate, evasive, guarded, poor eye contact Psychomotor Behavior: within normal limits Mood: depressed, anxious Affect and affective range: flat Thought Process: thought blocking Thought Content: illogical Speech: Normal volume and Regular rate and rhythm Suicidal Ideation: Denies Homicidal Ideation: Denies HI Hallucinations: Denies Impulse Control: impaired Insight and Judgment: poor Memory: poor Attention: poor Orientation: alert Assessment Opiate Overdose Major Depressive Disorder Treatment Plan 1013 Increase Doxepin 25mg po qhs d/c Depakote DR 125mg po TID Start Gabapentin 300mg po q8h Abilify 5mg po daily Start Vistaril 50mg po BID Medical: per primary Sitter: defer to primary Disposition: Recommend acute psychiatric inpatient treatment Will follow. Thanks. Case staffed by Dr. Urena Mental Status Exam - Vital signs Last Vital Signs Temp 98.3 F 09/10/21 04:17 Pulse 58 L 09/10/21 04:17 Resp 16 09/10/21 04:17 BP 113/60 09/10/21 04:17 Pulse Ox 97 09/10/21 04:17
[2021-09-10 12:53] LABS: Hepatitis B Surface Antigen Non-Reactive (Negative); Hepatitis C Virus Antibody Non-Reactive (NonReactive)
[2021-09-10] MEDS ORDERED: DIVALPROEX DR 125 MG TAB PO SCH (14:00)
--- NOTE | 2021-09-10 15:13 | Electrocardiograph Report ---
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
[2021-09-10] MEDS: GABAPENTIN 300 MG CAP PO SCH ×2 (15:54→22:54)
[2021-09-10] MEDS ORDERED: LORazepam 2 MG/ML VIAL IV PRN (18:15)
[2021-09-10] MEDS: LORazepam 2 MG/ML VIAL IV PRN (18:30)
[2021-09-10] MEDS: levETIRAcetam 750 MG in DEXTROSE 5% IN WATER 100 ML IV SCH ×2 (19:29→22:33)
[2021-09-10] MEDS: DOXEPIN 25 MG CAP PO SCH (22:55)
[2021-09-10] MEDS: cefTRIAXone/NS 2 GM/100 ML 2 GM/100 ML BAG IV SCH (23:50)
--- NOTE | 2021-09-11 03:51 | Progress Note ---
Assessment and Plan Assessment and plan: #Unintentional opioid overdose #Opioid withdrawal #Polysubstance dependence #1013 According to patient's mother and chart review, the patient has been snorting heroin for 10 years. Patient was found unresponsive at home by family and EMS was called. Patient will begin to undergo opioid withdrawal while being hospitalized. Continue supportive management. Psychiatry consulted; appreciate recs. Patient placed under 1013. -Patient engages in the following substances: Heroin -Counseled patient about the importance of cessation of substance abuse. Offered resources to help with quitting. Patient expresses understanding. -Time: +15 mins #Seizures - received IV ativan 2mg to cease seizures. Started on IV keppra 750mg BID. - Neurology consulted; pending recs #Rhabdomyolysis-improving Creatine kinase 5143-->7274-->4537--> 2341 Likely secondary to opioid overdose and patient being found unresponsive at home. Encouraging p.o. intake. Continue to trend creatine kinase. #Leukocytosisimproving WBC 27--> 21.2--> 15.0 Possibly secondary to stress response--> Demarginalization Ordered blood cultures. Continue Rocephin 1 g every 24 hours. If blood cul tures unremarkable x48 hours, antibiotics can be discontinued. Continue to monitor with daily CBC. #Elevated transaminasesimproving AST 152, ALT 75 Possibly secondary to substance abuse. Unremarkable acute hepatitis panel. No current intervention necessary at this time for elevated transaminases. Continue to monitor with repeat CMP tomorrow. #Metabolic acidosisresolved #Hypokalemia Potassium 3.4 Repleting. Continue to monitor with repeat BMP in the morning. #Advanced care planning -Disease education conducted, care plan discussed, diagnoses discussed, prognosis discussed, and patient acknowledges understanding with care plan -Time: +30 min Disposition Plan: Continue medical management Total Time Spent with Patient (Minutes): 45 min History Interval history: The patient experienced multiple seizures late yesterday evening that was treated with IV ativan. The patient was subsequently loaded with Keppra. Hospitalist Physical - Constitutional Vitals: Temp Pulse Resp BP Pulse Ox 98.0 F 114 H 20 116/93 99 09/10/21 22:31 09/10/21 22:31 09/10/21 22:31 09/10/21 22:31 09/10/21 22:31 General appearance: Present: no acute distress, well-nourished - EENT Eyes: Present: PERRL, EOM intact ENT: hearing intact, clear oral mucosa, dentition normal - Neck Neck: Present: supple, normal ROM - Respiratory Respiratory effort: normal Respiratory: bilateral: CTA - Cardiovascular Rhythm: regular Heart Sounds: Present: S1 & S2 - Extremities Extremities: no ischemia, pulses intact, pulses symmetrical, No edema, normal temperature, normal color Peripheral Pulses: within normal limits - Abdominal General gastrointestinal: soft, non-tender, non-distended, normal bowel sounds - Integumentary Integumentary: Present: clear, warm, dry - Psychiatric Psychiatric: other (altered and hallucinating) - Neurologic Neurologic: CNII-XII intact - Allied Health Allied health notes reviewed: nursing Results - Labs CBC & Chem 7: 09/11/21 04:40 09/11/21 04:40 Labs: Laboratory Last Values WBC 21.2 K/mm3 (4.5-11.0) H 09/09/21 06:28 RBC 5.04 M/mm3 (3.65-5.03) H 09/09/21 06:28 Hgb 15.5 gm/dl (10.1-14.3) H 09/09/21 06:28 Hct 43.6 % (30.3-42.9) H 09/09/21 06:28 MCV 87 fl (79-97) 09/09/21 06:28 MCH 31 pg (28-32) 09/09/21 06:28 MCHC 36 % (30-34) H 09/09/21 06:28 RDW 13.4 % (13.2-15.2) 09/09/21 06:28 Plt Count 361 K/mm3 (140-440) 09/09/21 06:28 Add Manual Diff Complete 09/09/21 06:28 Total Counted 100 09/09/21 06:28 Seg Neuts % (Manual) 83.0 % (40.0-70.0) H 09/09/21 06:28 Band Neutrophils % 1.0 % 09/09/21 06:28 Lymphocytes % (Manual) 10.0 % (13.4-35.0) L 09/09/21 06:28 Reactive Lymphs % (Man) 0 % 09/09/21 06:28 Monocytes % (Manual) 5.0 % (0.0-7.3) 09/09/21 06:28 Eosinophils % (Manual) 0 % (0.0-4.3) 09/09/21 06:28 Basophils % (Manual) 1.0 % (0.0-1.8) 09/09/21 06:28 Metamyelocytes % 0 % 09/09/21 06:28 Myelocytes % 0 % 09/09/21 06:28 Promyelocytes % 0 % 09/09/21 06:28 Blast Cells % 0 % 09/09/21 06:28 Nucleated RBC % Not Reportable 09/09/21 06:28 Seg Neutrophils # Man 17.6 K/mm3 (1.8-7.7) H 09/09/21 06:28 Band Neutrophils # 0.2 K/mm3 09/09/21 06:28 Lymphocytes # (Manual) 2.1 K/mm3 (1.2-5.4) 09/09/21 06:28 Abs React Lymphs (Man) 0.0 K/mm3 09/09/21 06:28 Monocytes # (Manual) 1.1 K/mm3 (0.0-0.8) H 09/09/21 06:28 Eosinophils # (Manual) 0.0 K/mm3 (0.0-0.4) 09/09/21 06:28 Basophils # (Manual) 0.2 K/mm3 (0.0-0.1) H 09/09/21 06:28 Metamyelocytes # 0.0 K/mm3 09/09/21 06:28 Myelocytes # 0.0 K/mm3 09/09/21 06:28 Promyelocytes # 0.0 K/mm3 09/09/21 06:28 Blast Cells # 0.0 K/mm3 09/09/21 06:28 WBC Morphology Not Reportable 09/09/21 06:28 Hypersegmented Neuts Not Reportable 09/09/21 06:28 Hyposegmented Neuts Not Reportable 09/09/21 06:28 Hypogranular Neuts Not Reportable 09/09/21 06:28 Smudge Cells Not Reportable 09/09/21 06:28 Toxic Granulation Not Reportable 09/09/21 06:28 Toxic Vacuolation Not Reportable 09/09/21 06:28 Dohle Bodies Not Reportable 09/09/21 06:28 Pelger-Huet Anomaly Not Reportable 09/09/21 06:28 Jeannine Rods Not Reportable 09/09/21 06:28 Platelet Estimate Consistent w auto 09/09/21 06:28 Clumped Platelets Not Reportable 09/09/21 06:28 Plt Clumps, EDTA Not Reportable 09/09/21 06:28 Large Platelets Not Reportable 09/09/21 06:28 Giant Platelets Not Reportable 09/09/21 06:28 Platelet Satelliting Not Reportable 09/09/21 06:28 Plt Morphology Comment Not Reportable 09/09/21 06:28 RBC Morphology Normal 09/09/21 06:28 Dimorphic RBCs Not Reportable 09/09/21 06:28 Polychromasia Not Reportable 09/09/21 06:28 Hypochromasia Not Reportable 09/09/21 06:28 Poikilocytosis Not Reportable 09/09/21 06:28 Anisocytosis Not Reportable 09/09/21 06:28 Microcytosis Not Reportable 09/09/21 06:28 Macrocytosis Not Reportable 09/09/21 06:28 Spherocytes Not Reportable 09/09/21 06:28 Pappenheimer Bodies Not Reportable 09/09/21 06:28 Sickle Cells Not Reportable 09/09/21 06:28 Target Cells Not Reportable 09/09/21 06:28 Tear Drop Cells Not Reportable 09/09/21 06:28 Ovalocytes Not Reportable 09/09/21 06:28 Helmet Cells Not Reportable 09/09/21 06:28 [place] Bodies Not Reportable 09/09/21 06:28 Delight Rings Not Reportable 09/09/21 06:28 Bryce Cells Not Reportable 09/09/21 06:28 Bite Cells Not Reportable 09/09/21 06:28 Crenated Cell Not Reportable 09/09/21 06:28 Elliptocytes Not Reportable 09/09/21 06:28 Acanthocytes (Spur) Not Reportable 09/09/21 06:28 Rouleaux Not Reportable 09/09/21 06:28 Hemoglobin C Crystals Not Reportable 09/09/21 06:28 Schistocytes Not Reportable 09/09/21 06:28 Malaria parasites Not Reportable 09/09/21 06:28 Peter Bodies Not Reportable 09/09/21 06:28 Hem Pathologist Commnt No 09/09/21 06:28 Sodium 142 mmol/L (137-145) 09/10/21 05:16 Potassium 3.0 mmol/L (3.6-5.0) L 09/10/21 05:16 Chloride 103.3 mmol/L (98-107) 09/10/21 05:16 Carbon Dioxide 25 mmol/L (22-30) 09/10/21 05:16 Anion Gap 17 mmol/L 09/10/21 05:16 BUN 15 mg/dL (7-17) 09/10/21 05:16 Creatinine 0.7 mg/dL (0.6-1.2) 09/10/21 05:16 Estimated GFR > 60 ml/min 09/10/21 05:16 BUN/Creatinine Ratio 21 % 09/10/21 05:16 Glucose 117 mg/dL (65-100) H 09/10/21 05:16 POC Glucose 182 mg/dL (70-105) H 09/10/21 18:23 Calcium 9.5 mg/dL (8.4-10.2) 09/10/21 05:16 Total Bilirubin 0.60 mg/dL (0.1-1.2) 09/10/21 05:16 AST 100 units/L (5-40) H 09/10/21 05:16 ALT 76 units/L (7-56) H 09/10/21 05:16 Alkaline Phosphatase 100 units/L (35-129) 09/10/21 05:16 Total Creatine Kinase 4537 units/L (30-135) H 09/10/21 05:16 Total Protein 7.0 g/dL (6.3-8.2) 09/10/21 05:16 Albumin 4.2 g/dL (3.9-5) 09/10/21 05:16 Albumin/Globulin Ratio 1.5 % 09/10/21 05:16 HCG, Quant < 2 mIU/mL (0-4) 09/08/21 19:35 Salicylates < 0.3 mg/dL (2.8-20.0) L 09/08/21 19:35 Acetaminophen 5.0 ug/mL (10.0-30.0) L 09/08/21 19:35 Plasma/Serum Alcohol < 0.01 % (0-0.07) 09/08/21 19:35 Hepatitis A IgM Ab Non-reactive (NonReactive) 09/10/21 05:16 Hep Bs Antigen Non-reactive (Negative) 09/10/21 05:16 Hep B Core IgM Ab Non-reactive (NonReactive) 09/10/21 05:16 Hepatitis C Antibody Non-reactive (NonReactive) 09/10/21 05:16 Microbiology: Microbiology 09/09/21 11:17 Peripheral/Venous Blood Culture - Preliminary NO GROWTH AFTER 24 HOURS 09/09/21 11:17 Peripheral/Venous Blood Culture - Preliminary NO GROWTH AFTER 24 HOURS Pinedo/IV: Voiding Method Bedside Commode Active Medications - Current Medications Current Medications: Generic Name Dose Route Start Last Admin Trade Name Freq PRN Reason Stop Dose Admin Acetaminophen 650 mg 09/08/21 22:08 Acetaminophen 325 Mg Tab PO Q4H PRN Pain MILD(1-3)/Fever >100.5/JERONIMO Albuterol 2.5 mg 09/08/21 22:08 Albuterol 2.5 Mg/3 Ml Nebu IH Q3HRT PRN Shortness Of Breath Aripiprazole 5 mg 09/09/21 13:00 09/10/21 10:05 Aripiprazole 5 Mg Tab PO 5 mg QDAY SAMANTHA Administration Doxepin HCl 25 mg 09/10/21 22:00 09/10/21 22:55 Doxepin 25 Mg Cap PO 25 mg QHS SAMANTHA Administration Enoxaparin Sodium 40 mg 09/09/21 10:00 09/10/21 10:05 Enoxaparin 40 Mg/0.4 Ml Inj SUB-Q 40 mg DAILY SAMANTHA Administration Protocol Famotidine 20 mg 09/10/21 10:00 09/10/21 22:55 Famotidine 20 Mg Tab PO 20 mg BID SAMANTHA Administration Gabapentin 300 mg 09/10/21 14:00 09/10/21 22:54 Gabapentin 300 Mg Cap PO 300 mg Q8HR SAMANTHA Administration Hydroxyzine Pamoate 50 mg 09/10/21 11:00 09/10/21 22:55 Hydroxyzine Pamoate 50 Mg Cap PO 50 mg BID SAMANTHA Administration Ceftriaxone Sodium 2 gm in 100 mls @ 200 mls/hr 09/08/21 23:00 09/10/21 23:50 Rocephin/Ns 2 Gm/100 Ml IV 200 mls/hr Q24H SAMANTHA Administration Protocol Levetiracetam 750 mg/ Dextrose 107.5 mls @ 400 mls/hr 09/10/21 18:27 09/10/21 22:33 IV 400 mls/hr Q12HR SAMANTHA Administration Lorazepam 2 mg 09/10/21 18:27 09/10/21 18:30 Lorazepam 2 Mg/Ml Vial IV 2 mg Q4H PRN Administration Seizures Morphine Sulfate 2 mg 09/08/21 22:08 Morphine 2 Mg/1 Ml Inj IV Q4H PRN Pain, Moderate (4-6) Morphine Sulfate 4 mg 09/08/21 22:08 Morphine 4 Mg/1 Ml Inj IV Q4H PRN Pain , Severe (7-10) Naloxone HCl 0.1 mg 09/08/21 18:20 Naloxone 0.4 Mg/1 Ml Inj IV Q2MIN PRN Res Rate </= 8 or 02 SAT < 92% Ondansetron HCl 4 mg 09/08/21 22:08 09/10/21 17:35 Ondansetron 4 Mg/2 Ml Inj IV 4 mg Q8H PRN Administration Nausea And Vomiting Sodium Chloride 10 ml 09/09/21 10:00 09/10/21 22:34 Sodium Chloride 0.9% 10 Ml Flush Syringe IV 10 ml BID SAMANTHA Administration Sodium Chloride 10 ml 09/08/21 22:08 Sodium Chloride 0.9% 10 Ml Flush Syringe IV PRN PRN LINE FLUSH
[2021-09-11 05:33] LABS: Basophils # (Auto) 0.1 K/mm3 (0.0-0.1); Basophils % (Auto) 0.7 % (0.0-1.8); Eosinophils # (Auto) 0.7 K/mm3 (0.0-0.4); Eosinophils % (Auto) 4.5 % (0.0-4.3); Hematocrit 41.9 % (30.3-42.9); Hemoglobin 13.9 gm/dl (10.1-14.3); Lymphocytes % (Auto) 13.2 % (13.4-35.0); Mean Corpuscular HGB Conc 33 % (30-34); Mean Corpuscular Volume 88 fl (79-97); Monocytes # (Auto) 0.8 K/mm3 (0.0-0.8); Monocytes % (Auto) 5.6 % (0.0-7.3); Platelet Count 256 K/mm3 (140-440); Red Blood Count 4.76 M/mm3 (3.65-5.03); Red Cell Distribution Width 13.2 % (13.2-15.2)
[2021-09-11 05:35] LABS: Alanine Aminotransferase 73 units/L (7-56); Albumin 3.8 g/dL (3.9-5); Blood Urea Nitrogen 11 mg/dL (7-17); Calcium 8.9 mg/dL (8.4-10.2); Hemolysis Index 21
[2021-09-11] MEDS: GABAPENTIN 300 MG CAP PO SCH ×3 (05:46→22:30)
[2021-09-11 05:48] LABS: BUN/Creatinine Ratio 18
[2021-09-11] MEDS ORDERED: SODIUM CHLORIDE 0.9% 1000 ML 1,000 ML IV SCH (08:30)
[2021-09-11] MEDS: ARIPiprazole 5 MG TAB PO SCH (09:06)
[2021-09-11] MEDS: ENOXAPARIN 40 MG/0.4 ML INJ SUB-Q SCH (09:06)
[2021-09-11] MEDS: FAMOTIDINE 20 MG TAB PO SCH ×2 (09:06→22:30)
[2021-09-11] MEDS: POTASSIUM CHLORIDE 10 MEQ 10 MEQ/100 ML BAG IV SCH ×4 (09:08→13:12)
[2021-09-11] MEDS: levETIRAcetam 750 MG in DEXTROSE 5% IN WATER 100 ML IV SCH ×2 (09:29→22:30)
[2021-09-11] MEDS: LORazepam 2 MG/ML VIAL IV PRN (12:50)
--- NOTE | 2021-09-11 12:51 | Progress Note ---
Subjective - Reason for Consult Consult date: 09/11/21 Reason for consult: OD - Chief Complaint Chief complaint: The patient was seen today. She is quiet, withdrawn and appears down. The patient denies SI/HI. I discussed with her drug cessation and rehab. She says she doesn't want rehab. She says "there's no need. I know what I have to do. I have to stop doing drugs, pray and just be good." The patient says she's ready to "hang out at the batres." She says she doesn't have a lot of plans once she gets home, but to see friends and go to the bat[place]. She says she's an only child and has a supportive family. She denies hallucinations of any kind. Spoke with the nurse caring for the patient. She says the patient was having withdrawals yesterday, seizure like activity and hallucinating. I instructed her to give the patient prn meds and inform the medical doctor of this. The patient is unaware that her boyfriend surrounding the circumstances of her drug overdose, according to mom. Mom wanted someone to accompany her to inform the patient, per the Nayana SANTOYO. I informed the SW that the patient also needed a geospatial technologist to accompany. She says there is not a Senior Application Software Engineer employed at the hospital. Myself, and the SW accompanies the mom. The mom told the patient at bedside. ROS: Constitutional: Negative for weight loss ENT: Negative for stridor Respiratory: Negative for cough or hemoptysis All other systems reviewed and are negative MENTAL STATUS General Appearance and Behavior: age appropriate, evasive, guarded, poor eye contact Psychomotor Behavior: within normal limits Mood: depressed, anxious Affect and affective range: flat Thought Process: thought blocking Thought Content: illogical Speech: Normal volume and Regular rate and rhythm Suicidal Ideation: Denies Homicidal Ideation: Denies HI Hallucinations: Denies Impulse Control: impaired Insight and Judgment: poor Memory: poor Attention: poor Orientation: alert Assessment Opiate Overdose Major Depressive Disorder Treatment Plan 1013 Doxepin 25mg po qhs Start Gabapentin 300mg po q8h Abilify 5mg po daily Vistaril 50mg po BID Monitor and give prn meds for any signs of withdrawal. Medical: per primary Sitter: defer to primary Disposition: Recommend acute psychiatric inpatient treatment Will follow. Thanks. Case staffed by Dr. Urena Mental Status Exam - Vital signs Last Vital Signs Temp 99.1 F 09/11/21 03:31 Pulse 89 09/11/21 03:31 Resp 16 09/11/21 03:31 BP 133/78 09/11/21 03:31 Pulse Ox 100 09/11/21 10:03
--- NOTE | 2021-09-11 16:14 | Consultation ---
History of Present Illness Consult date: 09/11/21 Reason for Consult: Encepahlopathy History of present illness: Opiate overdose History of present illness: 36-year-old female with history of heroin addiction, who was reportedly found in bed unresponsive, next to her , 911 was activated. The patient has no recollection of these events. The patient denies physical pain. The patient did not receive Narcan. The patient usually snorts heroin. She did not snort heroin today. She is not homicidal or suicidal. Patient reports that she is not experiencing hallucinations. The patient does endorse that she feels somewhat anxious. The patient is less verbal , since the hospital some improvement . Past History Past Medical History: other (Heroin addiction) Past Surgical History: No surgical history Social history: other (Heroin addiction) Family history: no significant family history Medications and Allergies Allergies Allergy/AdvReac Type Severity Reaction Status Date / Time No Known Allergies Allergy Verified 09/08/21 22:14 Home Medications Medication Instructions Recorded Confirmed Last Taken Type Naloxone HCl [Narcan Nasal [place]] 4 mg NS PRN PRN #1 spray 09/08/21 Unknown Rx Ondansetron [Zofran Odt] 4 mg PO Q8HR PRN #20 tab.rapdis 09/08/21 Unknown Rx Active Meds: Active Medications Acetaminophen (Acetaminophen 325 Mg Tab) 650 mg PO Q4H PRN PRN Reason: Pain MILD(1-3)/Fever >100.5/JERONIMO Albuterol (Albuterol 2.5 Mg/3 Ml Nebu) 2.5 mg IH Q3HRT PRN PRN Reason: Shortness Of Breath Aripiprazole (Aripiprazole 5 Mg Tab) 5 mg PO QDAY [facility] Last Admin: 09/11/21 09:06 Dose: 5 mg Doxepin HCl (Doxepin 25 Mg Cap) 25 mg PO QHS [facility] Last Admin: 09/10/21 22:55 Dose: 25 mg Enoxaparin Sodium (Enoxaparin 40 Mg/0.4 Ml Inj) 40 mg SUB-Q DAILY [facility]; Protocol Last Admin: 09/11/21 09:06 Dose: 40 mg Famotidine (Famotidine 20 Mg Tab) 20 mg PO BID [facility] Last Admin: 09/11/21 09:06 Dose: 20 mg Gabapentin (Gabapentin 300 Mg Cap) 300 mg PO Q8HR [facility] Last Admin: 09/11/21 15:45 Dose: 300 mg Hydroxyzine Pamoate (Hydroxyzine Pamoate 50 Mg Cap) 50 mg PO BID [facility] Last Admin: 09/11/21 09:06 Dose: 50 mg Levetiracetam 750 mg/ Dextrose 107.5 mls @ 400 mls/hr IV Q12HR [facility] Last Admin: 09/11/21 09:29 Dose: 400 mls/hr Sodium Chloride (Nacl 0.9% 1000 Ml) 1,000 mls @ 100 mls/hr IV DIRECT SAMANTHA Stop: 09/11/21 18:29 Last Admin: 09/11/21 09:08 Dose: 100 mls/hr Lorazepam (Lorazepam 2 Mg/Ml Vial) 2 mg IV Q4H PRN PRN Reason: Seizures Last Admin: 09/11/21 12:50 Dose: 2 mg Morphine Sulfate (Morphine 2 Mg/1 Ml Inj) 2 mg IV Q4H PRN PRN Reason: Pain, Moderate (4-6) Morphine Sulfate (Morphine 4 Mg/1 Ml Inj) 4 mg IV Q4H PRN PRN Reason: Pain , Severe (7-10) Naloxone HCl (Naloxone 0.4 Mg/1 Ml Inj) 0.1 mg IV Q2MIN PRN PRN Reason: Res Rate </= 8 or 02 SAT < 92% Ondansetron HCl (Ondansetron 4 Mg/2 Ml Inj) 4 mg IV Q8H PRN PRN Reason: Nausea And Vomiting Last Admin: 09/10/21 17:35 Dose: 4 mg Sodium Chloride (Sodium Chloride 0.9% 10 Ml Flush Syringe) 10 ml IV BID [facility] Last Admin: 09/11/21 09:15 Dose: 10 ml Sodium Chloride (Sodium Chloride 0.9% 10 Ml Flush Syringe) 10 ml IV PRN PRN PRN Reason: LINE FLUSH Physical Examination - Vital Signs Vital Signs: Vital Signs Pulse Resp Pulse Ox 82 19 96 09/08/21 18:12 09/08/21 18:12 09/08/21 18:12 - Physical Exam Narrative exam: The patient is drowsy , follows command,does not verbalize , moves all 4 extremity . Results - Laboratory Findings CBC and BMP: 09/11/21 04:40 09/11/21 04:40 Abnormal Lab Findings: Abnormal Labs 09/08/21 09/08/2122 19:35 19:35 19:35 WBC 26.9 H RBC 5.28 H Hgb 15.5 H Hct 46.1 H MCHC Lymph % (Auto) Eos % (Auto) Eos # (Auto) Seg Neutrophils % Seg Neuts % (Manual) Lymphocytes % (Manual) Seg Neutrophils # Seg Neutrophils # Man Monocytes # (Manual) Basophils # (Manual) Potassium 3.4 L Chloride 97.4 L BUN 18 H Glucose 133 H POC Glucose Calcium 10.6 H AST 88 H ALT Total Creatine Kinase 5143 H Albumin Salicylates < 0.3 L Acetaminophen 09/08/21 09/09/21 09/09/21 19:35 06:28 06:28 WBC 21.2 H RBC 5.04 H Hgb 15.5 H Hct 43.6 H MCHC 36 H Lymph % (Auto) Eos % (Auto) Eos # (Auto) Seg Neutrophils % Seg Neuts % (Manual) 83.0 H Lymphocytes % (Manual) 10.0 L Seg Neutrophils # Seg Neutrophils # Man 17.6 H Monocytes # (Manual) 1.1 H Basophils # (Manual) 0.2 H Potassium 3.4 L Chloride BUN Glucose 159 H POC Glucose Calcium AST 152 H ALT 75 H Total Creatine Kinase Albumin Salicylates Acetaminophen 5.0 L 09/09/21 09/10/21 09/10/21 11:17 05:16 18:23 WBC RBC Hgb Hct MCHC Lymph % (Auto) Eos % (Auto) Eos # (Auto) Seg Neutrophils % Seg Neuts % (Manual) Lymphocytes % (Manual) Seg Neutrophils # Seg Neutrophils # Man Monocytes # (Manual) Basophils # (Manual) Potassium 3.0 L Chloride BUN Glucose 117 H POC Glucose 182 H Calcium AST 100 H ALT 76 H Total Creatine Kinase 7274 H 4537 H Albumin Salicylates Acetaminophen 09/11/21 09/11/21 04:40 04:40 WBC 15.0 H RBC Hgb Hct MCHC Lymph % (Auto) 13.2 L Eos % (Auto) 4.5 H Eos # (Auto) 0.7 H Seg Neutrophils % 76.0 H Seg Neuts % (Manual) Lymphocytes % (Manual) Seg Neutrophils # 11.4 H Seg Neutrophils # Man Monocytes # (Manual) Basophils # (Manual) Potassium 3.3 L Chloride BUN Glucose 109 H POC Glucose Calcium AST 65 H ALT 73 H Total Creatine Kinase 2341 H Albumin 3.8 L Salicylates Acetaminophen Assessment and Plan 1. Encephalopathy - multifactorial - Head CT negative 2. Predmoinantely Psychiatry issue . 3. No New Medication at Present . 4. Call Back with Questions Dr. Rios
[2021-09-11] MEDS: DOXEPIN 25 MG CAP PO SCH (22:30)
[2021-09-12] MEDS: GABAPENTIN 300 MG CAP PO SCH ×3 (05:44→21:19)
[2021-09-12 05:56] LABS: Alanine Aminotransferase 77 units/L (7-56); Albumin 3.5 g/dL (3.9-5); Blood Urea Nitrogen 11 mg/dL (7-17); Calcium 8.9 mg/dL (8.4-10.2); Hemolysis Index 161
[2021-09-12 06:09] LABS: BUN/Creatinine Ratio 18
[2021-09-12 06:10] LABS: Hemoglobin 13.5 gm/dl (10.1-14.3); Mean Corpuscular HGB Conc 36 % (30-34); Mean Corpuscular Volume 85 fl (79-97); Platelet Count 247 K/mm3 (140-440); Red Blood Count 4.45 M/mm3 (3.65-5.03); Red Cell Distribution Width 13.1 % (13.2-15.2)
[2021-09-12 08:20] LABS: Anisocytosis Few; Basophils % (Manual) 0 % (0.0-1.8); Myelocytes # (Manual) 0.1 K/mm3; Total Cells Counted 100
[2021-09-12 08:21] LABS: Platelet Estimate Consistent w Auto
--- NOTE | 2021-09-12 09:43 | Progress Note ---
Assessment and Plan Assessment and plan: #Unintentional opioid overdose #Opioid withdrawal #Polysubstance dependence #1013 According to patient's mother and chart review, the patient has been snorting heroin for 10 years. Patient was found unresponsive at home by family and EMS was called. Patient will begin to undergo opioid withdrawal while being hospitalized. Continue supportive management. Psychiatry consulted; appreciate recs. Patient placed under 1013. -Patient engages in the following substances: Heroin -Counseled patient about the importance of cessation of substance abuse. Offered resources to help with quitting. Patient expresses understanding. -Time: +15 mins #Seizures - received IV ativan 2mg to cease seizures. Started on IV keppra 750mg BID. - Neurology consulted; pending recs #Rhabdomyolysis-improving Creatine kinase 5143-->7274-->4537--> 2341 Likely secondary to opioid overdose and patient being found unresponsive at home. Encouraging p.o. intake. Continue to trend creatine kinase. #Leukocytosisimproving WBC 27--> 21.2--> 15.0-->13.3 Possibly secondary to stress response--> Demarginalization Ordered blood cultures. Continue Rocephin 1 g every 24 hours. If blood cultures unremarkable x48 hours, antibiotics can be discontinued. Continue to monitor with daily CBC. #Elevated transaminasesimproving AST 152, ALT 75 Possibly secondary to substance abuse. Unremarkable acute hepatitis panel. No current intervention necessary at this time for elevated transaminases. Continue to monitor with repeat CMP tomorrow. #Metabolic acidosisresolved #Hypokalemia Potassium 3.8 Resolved History Interval history: No new issues overnight Hospitalist Physical - Constitutional Vitals: Temp Pulse Resp BP Pulse Ox 99.2 F 72 16 115/69 100 09/12/21 05:33 09/12/21 05:33 09/12/21 05:33 09/12/21 05:33 09/12/21 05:33 General appearance: Present: no acute distress, well-nourished - EENT Eyes: Present: PERRL, EOM intact ENT: hearing intact, clear oral mucosa, dentition normal - Neck Neck: Present: supple, normal ROM - Respiratory Respiratory effort: normal Respiratory: bilateral: CTA - Cardiovascular Rhythm: regular Heart Sounds: Present: S1 & S2. Absent: gallop, rub - Extremities Extremities: no ischemia, No edema, Full ROM - Abdominal General gastrointestinal: soft, non-tender, non-distended, normal bowel sounds - Integumentary Integumentary: Present: clear, warm, dry - Neurologic Neurologic: CNII-XII intact, moves all extremities Results - Labs CBC & Chem 7: 09/12/21 05:49 09/12/21 05:11 Labs: Laboratory Last Values WBC 13.3 K/mm3 (4.5-11.0) H 09/12/21 05:49 RBC 4.45 M/mm3 (3.65-5.03) 09/12/21 05:49 Hgb 13.5 gm/dl (10.1-14.3) 09/12/21 05:49 Hct 38.0 % (30.3-42.9) 09/12/21 05:49 MCV 85 fl (79-97) 09/12/21 05:49 MCH 30 pg (28-32) 09/12/21 05:49 MCHC 36 % (30-34) H 09/12/21 05:49 RDW 13.1 % (13.2-15.2) L 09/12/21 05:49 Plt Count 247 K/mm3 (140-440) 09/12/21 05:49 Lymph % (Auto) 13.2 % (13.4-35.0) L 09/11/21 04:40 [place] % (Auto) 5.6 % (0.0-7.3) 09/11/21 04:40 Eos % (Auto) 4.5 % (0.0-4.3) H 09/11/21 04:40 Baso % (Auto) 0.7 % (0.0-1.8) 09/11/21 04:40 Lymph # (Auto) 2.0 K/mm3 (1.2-5.4) 09/11/21 04:40 [place] # (Auto) 0.8 K/mm3 (0.0-0.8) 09/11/21 04:40 Eos # (Auto) 0.7 K/mm3 (0.0-0.4) H 09/11/21 04:40 Baso # (Auto) 0.1 K/mm3 (0.0-0.1) 09/11/21 04:40 Add Manual Diff Complete 09/12/21 05:49 Total Counted 100 09/12/21 05:49 Seg Neutrophils % 76.0 % (40.0-70.0) H 09/11/21 04:40 Seg Neuts % (Manual) 82.0 % (40.0-70.0) H 09/12/21 05:49 Band Neutrophils % 0 % 09/12/21 05:49 Lymphocytes % (Manual) 8.0 % (13.4-35.0) L 09/12/21 05:49 Reactive Lymphs % (Man) 0 % 09/12/21 05:49 Monocytes % (Manual) 4.0 % (0.0-7.3) 09/12/21 05:49 Eosinophils % (Manual) 4.0 % (0.0-4.3) 09/12/21 05:49 Basophils % (Manual) 0 % (0.0-1.8) 09/12/21 05:49 Metamyelocytes % 1.0 % 09/12/21 05:49 Myelocytes % 1.0 % 09/12/21 05:49 Promyelocytes % 0 % 09/12/21 05:49 Blast Cells % 0 % 09/12/21 05:49 Nucleated RBC % Not Reportable 09/12/21 05:49 Seg Neutrophils # 11.4 K/mm3 (1.8-7.7) H 09/11/21 04:40 Seg Neutrophils # Man 10.9 K/mm3 (1.8-7.7) H 09/12/21 05:49 Band Neutrophils # 0.0 K/mm3 09/12/21 05:49 Lymphocytes # (Manual) 1.1 K/mm3 (1.2-5.4) L 09/12/21 05:49 Abs React Lymphs (Man) 0.0 K/mm3 09/12/21 05:49 Monocytes # (Manual) 0.5 K/mm3 (0.0-0.8) 09/12/21 05:49 Eosinophils # (Manual) 0.5 K/mm3 (0.0-0.4) H 09/12/21 05:49 Basophils # (Manual) 0.0 K/mm3 (0.0-0.1) 09/12/21 05:49 Metamyelocytes # 0.1 K/mm3 09/12/21 05:49 Myelocytes # 0.1 K/mm3 09/12/21 05:49 Promyelocytes # 0.0 K/mm3 09/12/21 05:49 Blast Cells # 0.0 K/mm3 09/12/21 05:49 WBC Morphology Not Reportable 09/12/21 05:49 Hypersegmented Neuts Not Reportable 09/12/21 05:49 Hyposegmented Neuts Not Reportable 09/12/21 05:49 Hypogranular Neuts Not Reportable 09/12/21 05:49 Smudge Cells Not Reportable 09/12/21 05:49 Toxic Granulation Not Reportable 09/12/21 05:49 Toxic Vacuolation Not Reportable 09/12/21 05:49 Dohle Bodies Not Reportable 09/12/21 05:49 Pelger-Huet Anomaly Not Reportable 09/12/21 05:49 Jeannine Rods Not Reportable 09/12/21 05:49 Platelet Estimate Consistent w auto 09/12/21 05:49 Clumped Platelets Not Reportable 09/12/21 05:49 Plt Clumps, EDTA Not Reportable 09/12/21 05:49 Large Platelets Not Reportable 09/12/21 05:49 Giant Platelets Not Reportable 09/12/21 05:49 Platelet Satelliting Not Reportable 09/12/21 05:49 Plt Morphology Comment Not Reportable 09/12/21 05:49 RBC Morphology Not Reportable 09/12/21 05:49 Dimorphic RBCs Not Reportable 09/12/21 05:49 Polychromasia Not Reportable 09/12/21 05:49 Hypochromasia Not Reportable 09/12/21 05:49 Poikilocytosis Not Reportable 09/12/21 05:49 Anisocytosis Few 09/12/21 05:49 Microcytosis Not Reportable 09/12/21 05:49 Macrocytosis Not Reportable 09/12/21 05:49 Spherocytes Not Reportable 09/12/21 05:49 Pappenheimer Bodies Not Reportable 09/12/21 05:49 Sickle Cells Not Reportable 09/12/21 05:49 Target Cells Not Reportable 09/12/21 05:49 Tear Drop Cells Not Reportable 09/12/21 05:49 Ovalocytes Not Reportable 09/12/21 05:49 Helmet Cells Not Reportable 09/12/21 05:49 [place] Bodies Not Reportable 09/12/21 05:49 [place] Rings Not Reportable 09/12/21 05:49 [place] Cells Not Reportable 09/12/21 05:49 Bite Cells Not Reportable 09/12/21 05:49 Crenated Cell Not Reportable 09/12/21 05:49 Elliptocytes Not Reportable 09/12/21 05:49 Acanthocytes (Spur) Not Reportable 09/12/21 05:49 Rouleaux Not Reportable 09/12/21 05:49 Hemoglobin C Crystals Not Reportable 09/12/21 05:49 Schistocytes Not Reportable 09/12/21 05:49 Malaria parasites Not Reportable 09/12/21 05:49 Peter Bodies Not Reportable 09/12/21 05:49 Hem Pathologist Commnt No 09/12/21 05:49 Sodium 136 mmol/L (137-145) L 09/12/21 05:11 Potassium 3.8 mmol/L (3.6-5.0) 09/12/21 05:11 Chloride 101.5 mmol/L (98-107) 09/12/21 05:11 Carbon Dioxide 21 mmol/L (22-30) L 09/12/21 05:11 Anion Gap 17 mmol/L 09/12/21 05:11 BUN 11 mg/dL (7-17) 09/12/21 05:11 Creatinine 0.6 mg/dL (0.6-1.2) 09/12/21 05:11 Estimated GFR > 60 ml/min 09/12/21 05:11 BUN/Creatinine Ratio 18 % 09/12/21 05:11 Glucose 88 mg/dL (65-100) 09/12/21 05:11 POC Glucose 182 mg/dL (70-105) H 09/10/21 18:23 Calcium 8.9 mg/dL (8.4-10.2) 09/12/21 05:11 Phosphorus 3.00 mg/dL (2.5-4.5) 09/11/21 04:40 Magnesium 2.20 mg/dL (1.7-2.3) 09/11/21 04:40 Total Bilirubin 0.80 mg/dL (0.1-1.2) 09/12/21 05:11 AST 73 units/L (5-40) H 09/12/21 05:11 ALT 77 units/L (7-56) H 09/12/21 05:11 Alkaline Phosphatase 92 units/L (35-129) 09/12/21 05:11 Total Creatine Kinase 2341 units/L (30-135) H 09/11/21 04:40 Total Protein 6.3 g/dL (6.3-8.2) 09/12/21 05:11 Albumin 3.5 g/dL (3.9-5) L 09/12/21 05:11 Albumin/Globulin Ratio 1.3 % 09/12/21 05:11 HCG, Quant < 2 mIU/mL (0-4) 09/08/21 19:35 Salicylates < 0.3 mg/dL (2.8-20.0) L 09/08/21 19:35 Acetaminophen 5.0 ug/mL (10.0-30.0) L 09/08/21 19:35 Plasma/Serum Alcohol < 0.01 % (0-0.07) 09/08/21 19:35 Hepatitis A IgM Ab Non-reactive (NonReactive) 09/10/21 05:16 Hep Bs Antigen Non-reactive (Negative) 09/10/21 05:16 Hep B Core IgM Ab Non-reactive (NonReactive) 09/10/21 05:16 Hepatitis C Antibody Non-reactive (NonReactive) 09/10/21 05:16 Microbiology: Microbiology 09/09/21 11:17 Peripheral/Venous Blood Culture - Preliminary NO GROWTH AFTER 48 HOURS 09/09/21 11:17 Peripheral/Venous Blood Culture - Preliminary NO GROWTH AFTER 48 HOURS Pinedo/IV: Voiding Method Toilet Active Medications - Current Medications Current Medications: Generic Name Dose Route Start Last Admin Trade Name Freq PRN Reason Stop Dose Admin Acetaminophen 650 mg 09/08/21 22:08 Acetaminophen 325 Mg Tab PO Q4H PRN Pain MILD(1-3)/Fever >100.5/JERONIMO Albuterol 2.5 mg 09/08/21 22:08 Albuterol 2.5 Mg/3 Ml Nebu IH Q3HRT PRN Shortness Of Breath Aripiprazole 5 mg 09/09/21 13:00 09/11/21 09:06 Aripiprazole 5 Mg Tab PO 5 mg QDAY SAMANTHA Administration Doxepin HCl 25 mg 07/17/22 22:00 09/11/21 22:30 Doxepin 25 Mg Cap PO 25 mg QHS SAMANTHA Administration Enoxaparin Sodium 40 mg 09/09/21 10:00 09/11/21 09:06 Enoxaparin 40 Mg/0.4 Ml Inj SUB-Q 40 mg DAILY SAMANTHA Administration Protocol Famotidine 20 mg 09/10/21 10:00 09/11/21 22:30 Famotidine 20 Mg Tab PO 20 mg BID SAMANTHA Administration Gabapentin 300 mg 09/10/21 14:00 09/12/21 05:44 Gabapentin 300 Mg Cap PO 300 mg Q8HR SAMANTHA Administration Hydroxyzine Pamoate 50 mg 09/10/21 11:00 09/11/21 22:30 Hydroxyzine Pamoate 50 Mg Cap PO 50 mg BID SAMANTHA Administration Levetiracetam 750 mg/ Dextrose 107.5 mls @ 400 mls/hr 09/10/21 18:27 09/12/21 00:27 IV 09/12/21 23:59 Infused Q12HR SAMANTHA Infusion Levetiracetam 750 mg 09/13/21 10:00 Levetiracetam 500 Mg Tab PO BID SAMANTHA Lorazepam 2 mg 09/10/21 18:27 09/11/21 12:50 Lorazepam 2 Mg/Ml Vial IV 2 mg Q4H PRN Administration Seizures Morphine Sulfate 2 mg 09/08/21 22:08 Morphine 2 Mg/1 Ml Inj IV Q4H PRN Pain, Moderate (4-6) Morphine Sulfate 4 mg 09/08/21 22:08 Morphine 4 Mg/1 Ml Inj IV Q4H PRN Pain , Severe (7-10) Naloxone HCl 0.1 mg 09/08/21 18:20 Naloxone 0.4 Mg/1 Ml Inj IV Q2MIN PRN Res Rate </= 8 or 02 SAT < 92% Ondansetron HCl 4 mg 09/08/21 22:08 09/10/21 17:35 Ondansetron 4 Mg/2 Ml Inj IV 4 mg Q8H PRN Administration Nausea And Vomiting Sodium Chloride 10 ml 09/09/21 10:00 09/11/21 22:31 Sodium Chloride 0.9% 10 Ml Flush Syringe IV 10 ml BID SAMANTHA Administration Sodium Chloride 10 ml 09/08/21 22:08 Sodium Chloride 0.9% 10 Ml Flush Syringe IV PRN PRN LINE FLUSH
[2021-09-12] MEDS: levETIRAcetam 750 MG in DEXTROSE 5% IN WATER 100 ML IV SCH ×2 (10:12→21:18)
[2021-09-12] MEDS: ENOXAPARIN 40 MG/0.4 ML INJ SUB-Q SCH (10:12)
[2021-09-12] MEDS: ARIPiprazole 5 MG TAB PO SCH (10:12)
[2021-09-12] MEDS: FAMOTIDINE 20 MG TAB PO SCH ×2 (10:13→21:31)
--- NOTE | 2021-09-12 11:26 | Progress Note ---
Subjective - Reason for Consult Consult date: 09/12/21 Reason for consult: OD - Chief Complaint Chief complaint: The patient was seen today. She is quiet. She appears withdrawn, and makes poor eye contact. Her affect if flat. She denies SI/HI, but endorses feeling hopeless and depressed. 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 The patient says they had been together for 15 years. She turns her back, and stops talking. ROS: Constitutional: Negative for weight loss ENT: Negative for stridor Respiratory: Negative for cough or hemoptysis All other systems reviewed and are negative MENTAL STATUS General Appearance and Behavior: age appropriate, guarded, poor eye contact Psychomotor Behavior: within normal limits Mood: depressed Affect and affective range: flat Thought Process: thought blocking Thought Content: hopelessness Speech: Normal volume and Regular rate and rhythm Suicidal Ideation: Passive Homicidal Ideation: Denies HI Hallucinations: Denies Impulse Control: impaired Insight and Judgment: poor Memory: poor Attention: poor Orientation: alert Assessment Opiate Overdose Major Depressive Disorder Treatment Plan 1013 Start Celexa 10mg po daily Doxepin 25mg po qhs Gabapentin 300mg po q8h Abilify 5mg po daily Vistaril 50mg po BID Monitor and give prn meds for any signs of withdrawal. Medical: per primary Sitter: defer to primary Disposition: Recommend acute psychiatric inpatient treatment Will follow. Thanks. Case staffed by Dr. Urena Mental Status Exam - Vital signs Last Vital Signs Temp 99.2 F 09/12/21 05:33 Pulse 72 09/12/21 05:33 Resp 16 09/12/21 05:33 BP 115/69 09/12/21 05:33 Pulse Ox 100 09/12/21 05:33
[2021-09-12] MEDS: CITALOPRAM 10 MG TAB PO SCH (15:37)
[2021-09-12] MEDS: DOXEPIN 25 MG CAP PO SCH (21:19)
[2021-09-13] MEDS: GABAPENTIN 300 MG CAP PO SCH ×3 (05:36→21:21)
[2021-09-13 05:50] LABS: Hematocrit 40.1 % (30.3-42.9); Hemoglobin 13.9 gm/dl (10.1-14.3); Mean Corpuscular HGB Conc 35 % (30-34); Mean Corpuscular Volume 86 fl (79-97); Platelet Count 247 K/mm3 (140-440); Red Blood Count 4.68 M/mm3 (3.65-5.03); Red Cell Distribution Width 13.5 % (13.2-15.2)
[2021-09-13 06:09] LABS: BUN/Creatinine Ratio 13; Blood Urea Nitrogen 8 mg/dL (7-17); Calcium 9.2 mg/dL (8.4-10.2); Hemolysis Index 6
[2021-09-13 07:23] LABS: Total Cells Counted 100
[2021-09-13 07:26] LABS: Anisocytosis Few; Helmet Cells Rare; Large Platelets Rare; Ovalocytes Rare; Platelet Estimate Consistent w Auto; Poikilocytosis Few; Tear Drop Cells Rare
--- NOTE | 2021-09-13 08:50 | Progress Note ---
Assessment and Plan Assessment and plan: #Opioid overdose #Major depressive disorder -Continue Celexa, doxepin, gabapentin, Abilify, Vistaril. Psychiatry following. -Recommendations for acute psychiatric inpatient treatment #Polysubstance dependence #1013 According to patient's mother and chart review, the patient has been snorting heroin for 10 years. Patient was found unresponsive at home by family and EMS was called. Patient will begin to undergo opioid withdrawal while being hospitalized. Continue supportive management. Psychiatry consulted; appreciate recs. Patient placed under 1013. -Patient engages in the following substances: Heroin -Counseled patient about the importance of cessation of substance abuse. Offered resources to help with quitting. Patient expresses understanding. -Time: +15 mins #Seizures - Ativan as needed for breakthrough seizure. Continue p.o. keppra 750mg BID. - Neurology consulted; pending recs #Rhabdomyolysis-resolved Creatine kinase 5143-->7274-->4537--> 2341-->833 Likely secondary to opioid overdose and patient being found unresponsive at home. Encouraging p.o. intake. Continue to trend creatine kinase. #Leukocytosisimproving WBC 27--> 21.2--> 15.0-->13.3-->13.7 Possibly secondary to stress response--> Demarginalization Ordered blood cultures. Continue Rocephin 1 g every 24 hours. If blood cultures unremarkable x48 hours, antibiotics can be discontinued. Continue to monitor with daily CBC. #Elevated transaminasesresolved Possibly secondary to substance abuse. Unremarkable acute hepatitis panel. No current intervention necessary at this time for elevated transaminases. Continue to monitor #Metabolic acidosisresolved #Hypokalemia Potassium 3.8 Resolved History Interval history: No new issues overnight Hospitalist Physical - Constitutional Vitals: Temp Pulse Resp BP Pulse Ox 98.0 F 66 18 118/60 98 09/13/21 06:00 09/13/21 06:00 09/13/21 06:00 09/13/21 06:00 09/13/21 06:00 General appearance: Present: no acute distress, well-nourished - EENT Eyes: Present: PERRL, EOM intact ENT: hearing intact, clear oral mucosa, dentition normal - Neck Neck: Present: supple, normal ROM - Respiratory Respiratory effort: normal Respiratory: bilateral: CTA - Cardiovascular Rhythm: regular Heart Sounds: Present: S1 & S2. Absent: gallop, rub - Extremities Extremities: no ischemia, No edema, Full ROM - Abdominal General gastrointestinal: soft, non-tender, non-distended, normal bowel sounds - Integumentary Integumentary: Present: clear, warm, dry - Neurologic Neurologic: CNII-XII intact, moves all extremities Results - Labs CBC & Chem 7: 09/13/21 05:22 09/13/21 05:22 Labs: Laboratory Last Values WBC 13.7 K/mm3 (4.5-11.0) H 09/13/21 05:22 RBC 4.68 M/mm3 (3.65-5.03) 09/13/21 05:22 Hgb 13.9 gm/dl (10.1-14.3) 09/13/21 05:22 Hct 40.1 % (30.3-42.9) 09/13/21 05:22 MCV 86 fl (79-97) 09/13/21 05:22 MCH 30 pg (28-32) 09/13/21 05:22 MCHC 35 % (30-34) H 09/13/21 05:22 RDW 13.5 % (13.2-15.2) 09/13/21 05:22 Plt Count 247 K/mm3 (140-440) 09/13/21 05:22 Lymph % (Auto) 13.2 % (13.4-35.0) L 09/11/21 04:40 [place] % (Auto) 5.6 % (0.0-7.3) 09/11/21 04:40 Eos % (Auto) 4.5 % (0.0-4.3) H 09/11/21 04:40 Baso % (Auto) 0.7 % (0.0-1.8) 09/11/21 04:40 Lymph # (Auto) 2.0 K/mm3 (1.2-5.4) 09/11/21 04:40 [place] # (Auto) 0.8 K/mm3 (0.0-0.8) 09/11/21 04:40 Eos # (Auto) 0.7 K/mm3 (0.0-0.4) H 09/11/21 04:40 Baso # (Auto) 0.1 K/mm3 (0.0-0.1) 09/11/21 04:40 Add Manual Diff Complete 09/13/21 05:22 Total Counted 100 09/13/21 05:22 Seg Neutrophils % 76.0 % (40.0-70.0) H 09/11/21 04:40 Seg Neuts % (Manual) 76.0 % (40.0-70.0) H 09/13/21 05:22 Band Neutrophils % 0 % 09/13/21 05:22 Lymphocytes % (Manual) 10.0 % (13.4-35.0) L 09/13/21 05:22 Reactive Lymphs % (Man) 0 % 09/13/21 05:22 Monocytes % (Manual) 6.0 % (0.0-7.3) 09/13/21 05:22 Eosinophils % (Manual) 4.0 % (0.0-4.3) 09/13/21 05:22 Basophils % (Manual) 1.0 % (0.0-1.8) 09/13/21 05:22 Metamyelocytes % 3.0 % 09/13/21 05:22 Myelocytes % 0 % 09/13/21 05:22 Promyelocytes % 0 % 09/13/21 05:22 Blast Cells % 0 % 09/13/21 05:22 Nucleated RBC % Not Reportable 09/13/21 05:22 Seg Neutrophils # 11.4 K/mm3 (1.8-7.7) H 09/11/21 04:40 Seg Neutrophils # Man 10.4 K/mm3 (1.8-7.7) H 09/13/21 05:22 Band Neutrophils # 0.0 K/mm3 09/13/21 05:22 Lymphocytes # (Manual) 1.4 K/mm3 (1.2-5.4) 09/13/21 05:22 Abs React Lymphs (Man) 0.0 K/mm3 09/13/21 05:22 Monocytes # (Manual) 0.8 K/mm3 (0.0-0.8) 09/13/21 05:22 Eosinophils # (Manual) 0.5 K/mm3 (0.0-0.4) H 09/13/21 05:22 Basophils # (Manual) 0.1 K/mm3 (0.0-0.1) 09/13/21 05:22 Metamyelocytes # 0.4 K/mm3 09/13/21 05:22 Myelocytes # 0.0 K/mm3 09/13/21 05:22 Promyelocytes # 0.0 K/mm3 09/13/21 05:22 Blast Cells # 0.0 K/mm3 09/13/21 05:22 WBC Morphology Not Reportable 09/13/21 05:22 Hypersegmented Neuts Not Reportable 09/13/21 05:22 Hyposegmented Neuts Not Reportable 09/13/21 05:22 Hypogranular Neuts Not Reportable 09/13/21 05:22 Smudge Cells Not Reportable 09/13/21 05:22 Toxic Granulation Not Reportable 09/13/21 05:22 Toxic Vacuolation Not Reportable 09/13/21 05:22 Dohle Bodies Not Reportable 09/13/21 05:22 Pelger-Huet Anomaly Not Reportable 09/13/21 05:22 Jeannine Rods Not Reportable 09/13/21 05:22 Platelet Estimate Consistent w auto 09/13/21 05:22 Clumped Platelets Not Reportable 09/13/21 05:22 Plt Clumps, EDTA Not Reportable 09/13/21 05:22 Large Platelets Rare 09/13/21 05:22 Giant Platelets Not Reportable 09/13/21 05:22 Platelet Satelliting Not Reportable 09/13/21 05:22 Plt Morphology Comment Not Reportable 09/13/21 05:22 RBC Morphology Not Reportable 09/13/21 05:22 Dimorphic RBCs Not Reportable 09/13/21 05:22 Polychromasia Not Reportable 09/13/21 05:22 Hypochromasia Not Reportable 09/13/21 05:22 Poikilocytosis Few 09/13/21 05:22 Anisocytosis Few 09/13/21 05:22 Microcytosis Not Reportable 09/13/21 05:22 Macrocytosis Not Reportable 09/13/21 05:22 Spherocytes Not Reportable 09/13/21 05:22 Pappenheimer Bodies Not Reportable 09/13/21 05:22 Sickle Cells Not Reportable 09/13/21 05:22 Target Cells Not Reportable 09/13/21 05:22 Tear Drop Cells Rare 09/13/21 05:22 Ovalocytes Rare 09/13/21 05:22 Helmet Cells Rare 09/13/21 05:22 [place] Bodies Not Reportable 09/13/21 05:22 [place] Rings Not Reportable 09/13/21 05:22 [place] Cells Not Reportable 09/13/21 05:22 Bite Cells Not Reportable 09/13/21 05:22 Crenated Cell Not Reportable 09/13/21 05:22 Elliptocytes Not Reportable 09/13/21 05:22 Acanthocytes (Spur) Not Reportable 09/13/21 05:22 Rouleaux Not Reportable 09/13/21 05:22 Hemoglobin C Crystals Not Reportable 09/13/21 05:22 Schistocytes Not Reportable 09/13/21 05:22 Malaria parasites Not Reportable 09/13/21 05:22 Peter Bodies Not Reportable 09/13/21 05:22 Hem Pathologist Commnt No 09/13/21 05:22 Sodium 137 mmol/L (137-145) 09/13/21 05:22 Potassium 3.4 mmol/L (3.6-5.0) L 09/13/21 05:22 Chloride 101.6 mmol/L (98-107) 09/13/21 05:22 Carbon Dioxide 23 mmol/L (22-30) 09/13/21 05:22 Anion Gap 16 mmol/L 09/13/21 05:22 BUN 8 mg/dL (7-17) 09/13/21 05:22 Creatinine 0.6 mg/dL (0.6-1.2) 09/13/21 05:22 Estimated GFR > 60 ml/min 09/13/21 05:22 BUN/Creatinine Ratio 13 % 09/13/21 05:22 Glucose 114 mg/dL (65-100) H 09/13/21 05:22 POC Glucose 182 mg/dL (70-105) H 09/10/21 18:23 Calcium 9.2 mg/dL (8.4-10.2) 09/13/21 05:22 Phosphorus 3.00 mg/dL (2.5-4.5) 09/11/21 04:40 Magnesium 2.20 mg/dL (1.7-2.3) 09/11/21 04:40 Total Bilirubin 0.80 mg/dL (0.1-1.2) 09/12/21 05:11 AST 73 units/L (5-40) H 09/12/21 05:11 ALT 77 units/L (7-56) H 09/12/21 05:11 Alkaline Phosphatase 92 units/L (35-129) 09/12/21 05:11 Total Creatine Kinase 833 units/L (30-135) H 09/13/21 05:22 Total Protein 6.3 g/dL (6.3-8.2) 09/12/21 05:11 Albumin 3.5 g/dL (3.9-5) L 09/12/21 05:11 Albumin/Globulin Ratio 1.3 % 09/12/21 05:11 HCG, Quant < 2 mIU/mL (0-4) 09/08/21 19:35 Salicylates < 0.3 mg/dL (2.8-20.0) L 09/08/21 19:35 Acetaminophen 5.0 ug/mL (10.0-30.0) L 09/08/21 19:35 Plasma/Serum Alcohol < 0.01 % (0-0.07) 09/08/21 19:35 Hepatitis A IgM Ab Non-reactive (NonReactive) 09/10/21 05:16 Hep Bs Antigen Non-reactive (Negative) 09/10/21 05:16 Hep B Core IgM Ab Non-reactive (NonReactive) 09/10/21 05:16 Hepatitis C Antibody Non-reactive (NonReactive) 09/10/21 05:16 Microbiology: Microbiology 09/09/21 11:17 Peripheral/Venous Blood Culture - Preliminary NO GROWTH AFTER 72 HOURS 09/09/21 11:17 Peripheral/Venous Blood Culture - Preliminary NO GROWTH AFTER 72 HOURS Pinedo/IV: Voiding Method Toilet Active Medications - Current Medications Current Medications: Generic Name Dose Route Start Last Admin Trade Name Freq PRN Reason Stop Dose Admin Acetaminophen 650 mg 09/08/21 22:08 Acetaminophen 325 Mg Tab PO Q4H PRN Pain MILD(1-3)/Fever >100.5/JERONIMO Albuterol 2.5 mg 09/08/21 22:08 Albuterol 2.5 Mg/3 Ml Nebu IH Q3HRT PRN Shortness Of Breath Aripiprazole 5 mg 09/09/21 13:00 09/12/21 10:12 Aripiprazole 5 Mg Tab PO 5 mg QDAY SAMANTHA Administration Citalopram Hydrobromide 10 mg 09/12/21 13:00 09/12/21 15:37 Citalopram 10 Mg Tab PO 10 mg QDAY SAMANTHA Administration Doxepin HCl 25 mg 09/10/21 22:00 09/12/21 21:19 Doxepin 25 Mg Cap PO 25 mg QHS SAMANTHA Administration Enoxaparin Sodium 40 mg 09/09/21 10:00 09/12/21 10:12 Enoxaparin 40 Mg/0.4 Ml Inj SUB-Q 40 mg DAILY SAMANTHA Administration Protocol Famotidine 20 mg 09/10/21 10:00 09/12/21 21:31 Famotidine 20 Mg Tab PO 20 mg BID SAMANTHA Administration Gabapentin 300 mg 09/10/21 14:00 09/13/21 05:36 Gabapentin 300 Mg Cap PO 300 mg Q8HR SAMANTHA Administration Hydroxyzine Pamoate 50 mg 09/10/21 11:00 09/12/21 21:18 Hydroxyzine Pamoate 50 Mg Cap PO 50 mg BID SAMANTHA Administration Levetiracetam 750 mg 09/13/21 10:00 Levetiracetam 500 Mg Tab PO BID SAMANTHA Lorazepam 2 mg 09/10/21 18:27 09/11/21 12:50 Lorazepam 2 Mg/Ml Vial IV 2 mg Q4H PRN Administration Seizures Morphine Sulfate 2 mg 09/08/21 22:08 Morphine 2 Mg/1 Ml Inj IV Q4H PRN Pain, Moderate (4-6) Morphine Sulfate 4 mg 09/08/21 22:08 Morphine 4 Mg/1 Ml Inj IV Q4H PRN Pain , Severe (7-10) Naloxone HCl 0.1 mg 09/08/21 18:20 Naloxone 0.4 Mg/1 Ml Inj IV Q2MIN PRN Res Rate </= 8 or 02 SAT < 92% Ondansetron HCl 4 mg 09/08/21 22:08 09/10/21 17:35 Ondansetron 4 Mg/2 Ml Inj IV 4 mg Q8H PRN Administration Nausea And Vomiting Sodium Chloride 10 ml 09/09/21 10:00 09/12/21 21:19 Sodium Chloride 0.9% 10 Ml Flush Syringe IV 10 ml BID SAMANTHA Administration Sodium Chloride 10 ml 07/15/22 22:08 Sodium Chloride 0.9% 10 Ml Flush Syringe IV PRN PRN LINE FLUSH
[2021-09-13] MEDS: levETIRAcetam 500 MG TAB PO SCH ×2 (10:30→21:21)
[2021-09-13] MEDS: ENOXAPARIN 40 MG/0.4 ML INJ SUB-Q SCH (10:30)
[2021-09-13] MEDS: ARIPiprazole 5 MG TAB PO SCH (10:30)
[2021-09-13] MEDS: FAMOTIDINE 20 MG TAB PO SCH ×2 (10:30→21:21)
[2021-09-13] MEDS: CITALOPRAM 10 MG TAB PO SCH (10:30)
--- NOTE | 2021-09-13 11:33 | Progress Note ---
Subjective - Reason for Consult Consult date: 09/13/21 Reason for consult: OD - Chief Complaint Chief complaint: The patient was seen today. She continues to be withdrawn, and quiet. Her affect is flat. She answers most questions by shaking or nodding her head. The nurse says the patient hasn't been eating, but did eat a little more when changed diet to liquid. I ask the patient how did she feels, she replies, "my just ." The patient endorses feeling depressed and hopeless. She does deny active suicidal thoughts. ROS: Constitutional: Negative for weight loss ENT: Negative for stridor Respiratory: Negative for cough or hemoptysis All other systems reviewed and are negative MENTAL STATUS General Appearance and Behavior: age appropriate, evasive, guarded, poor eye contact, withdrawn Psychomotor Behavior: within normal limits Mood: depressed Affect and affective range: flat Thought Process: thought blocking Thought Content: hopelessness Speech: Normal volume and Regular rate and rhythm Suicidal Ideation: passive Homicidal Ideation: Denies HI Hallucinations: Denies Impulse Control: impaired Insight and Judgment: poor Memory: poor Attention: poor Orientation: alert Assessment Opiate Overdose Major Depressive Disorder Treatment Plan 1013 Increase Celexa 20mg po daily Start Remeron 7.5mg po to induce appetite. Doxepin 25mg po qhs Gabapentin 300mg po q8h Abilify 5mg po daily Vistaril 50mg po BID Medical: per primary Sitter: defer to primary Disposition: Recommend acute psychiatric inpatient treatment Will follow. Thanks. Case staffed by Dr. Urena Mental Status Exam - Vital signs Last Vital Signs Temp 98.0 F 09/13/21 06:00 Pulse 66 09/13/21 06:00 Resp 18 09/13/21 06:00 BP 118/60 09/13/21 06:00 Pulse Ox 98 09/13/21 06:00
[2021-09-13] MEDS: CITALOPRAM 20 MG TAB PO SCH ×3 (12:51→13:49)
[2021-09-13 15:29] LABS: Hematocrit 41.2 % (30.3-42.9); Hemoglobin 14.3 gm/dl (10.1-14.3); Mean Corpuscular HGB Conc 35 % (30-34); Mean Corpuscular Volume 86 fl (79-97); Platelet Count 277 K/mm3 (140-440); Red Blood Count 4.79 M/mm3 (3.65-5.03); Red Cell Distribution Width 13.3 % (13.2-15.2)
[2021-09-13 18:41] LABS: Amphetamine Screen,Urine Negative; Benzodiazepines Screen,Urine Negative; Cannabinoid Screen,Urine Negative; Cocaine Screen,Urine Negative; Methadone Screen,Urine Negative; Opiate Screen,Urine Negative
[2021-09-13 18:43] LABS: Mucus,Urine FEW /HPF
[2021-09-13 18:50] LABS: Bilirubin,Urine Negative (Negative); Color,Urine Yellow (Yellow); Protein,Urine <15 mg/dL mg/dL (Negative); Urobilinogen,Urine < 2.0 mg/dL (<2.0)
[2021-09-13] MEDS: MIRTAZAPINE 15 MG TAB PO SCH (21:21)
[2021-09-13] MEDS: DOXEPIN 25 MG CAP PO SCH (21:21)
[2021-09-13] MEDS ORDERED: MIRTAZAPINE 15 MG TAB PO SCH (22:00)
[2021-09-14] MEDS: GABAPENTIN 300 MG CAP PO SCH ×3 (05:38→21:45)
--- NOTE | 2021-09-14 08:48 | Progress Note ---
Assessment and Plan Assessment and plan: #Opioid overdose #Major depressive disorder -Continue Celexa, doxepin, gabapentin, Abilify, Vistaril. Psychiatry following. -Recommendations for acute psychiatric inpatient treatment #Polysubstance dependence #1013 According to patient's mother and chart review, the patient has been snorting heroin for 10 years. Patient was found unresponsive at home by family and EMS was called. Patient will begin to undergo opioid withdrawal while being hospitalized. Continue supportive management. Psychiatry consulted; appreciate recs. Patient placed under 1013. -Patient engages in the following substances: Heroin -Counseled patient about the importance of cessation of substance abuse. Offered resources to help with quitting. Patient expresses understanding. -Time: +15 mins #Seizures - Ativan as needed for breakthrough seizure. Continue p.o. keppra 750mg BID. - Neurology consulted; pending recs #Rhabdomyolysis-resolved Creatine kinase 5143-->7274-->4537--> 2341-->833 Likely secondary to opioid overdose and patient being found unresponsive at home. Encouraging p.o. intake. Continue to trend creatine kinase. #Leukocytosisworse WBC 27--> 21.2--> 15.0-->13.3-->13.7-->16.6 Possibly secondary to stress response--> Demarginalization Blood cultures no growth x4 days. Continue Rocephin 1 g every 24 hours. Empiric antibiotics of Rocephin were discontinued. -Check chest x-ray and urinalysis. Continue to monitor with daily CBC. -Patient was denied acute inpatient psychiatric admission due to leukocytosis. Continue to follow #Elevated transaminasesresolved Possibly secondary to substance abuse. Unremarkable acute hepatitis panel. No current intervention necessary at this time for elevated transaminases. Continue to monitor #Metabolic acidosisresolved #Hypokalemia Resolved History Interval history: No new issues overnight Hospitalist Physical - Constitutional Vitals: Temp Pulse Resp BP Pulse Ox 97.8 F 72 20 131/78 98 09/14/21 04:29 09/14/21 04:29 09/14/21 04:29 09/14/21 04:29 09/14/21 08:07 General appearance: Present: no acute distress, well-nourished - EENT Eyes: Present: PERRL, EOM intact ENT: hearing intact, clear oral mucosa, dentition normal - Neck Neck: Present: supple, normal ROM - Respiratory Respiratory effort: normal Respiratory: bilateral: CTA - Cardiovascular Rhythm: regular Heart Sounds: Present: S1 & S2. Absent: gallop, rub - Extremities Extremities: no ischemia, No edema, Full ROM - Abdominal General gastrointestinal: soft, non-tender, non-distended, normal bowel sounds - Integumentary Integumentary: Present: clear, warm, dry - Neurologic Neurologic: CNII-XII intact, moves all extremities Results - Labs CBC & Chem 7: 09/13/21 14:43 09/13/21 05:22 Labs: Laboratory Last Values WBC 16.4 K/mm3 (4.5-11.0) H 09/13/21 14:43 RBC 4.79 M/mm3 (3.65-5.03) 09/13/21 14:43 Hgb 14.3 gm/dl (10.1-14.3) 09/13/21 14:43 Hct 41.2 % (30.3-42.9) 09/13/21 14:43 MCV 86 fl (79-97) 09/13/21 14:43 MCH 30 pg (28-32) 09/13/21 14:43 MCHC 35 % (30-34) H 09/13/21 14:43 RDW 13.3 % (13.2-15.2) 09/13/21 14:43 Plt Count 277 K/mm3 (140-440) 09/13/21 14:43 Lymph % (Auto) 13.2 % (13.4-35.0) L 09/11/21 04:40 [place] % (Auto) 5.6 % (0.0-7.3) 09/11/21 04:40 Eos % (Auto) 4.5 % (0.0-4.3) H 09/11/21 04:40 Baso % (Auto) 0.7 % (0.0-1.8) 09/11/21 04:40 Lymph # (Auto) 2.0 K/mm3 (1.2-5.4) 09/11/21 04:40 [place] # (Auto) 0.8 K/mm3 (0.0-0.8) 09/11/21 04:40 Eos # (Auto) 0.7 K/mm3 (0.0-0.4) H 09/11/21 04:40 Baso # (Auto) 0.1 K/mm3 (0.0-0.1) 09/11/21 04:40 Add Manual Diff Complete 09/13/21 05:22 Total Counted 100 09/13/21 05:22 Seg Neutrophils % 76.0 % (40.0-70.0) H 09/11/21 04:40 Seg Neuts % (Manual) 76.0 % (40.0-70.0) H 09/13/21 05:22 Band Neutrophils % 0 % 09/13/21 05:22 Lymphocytes % (Manual) 10.0 % (13.4-35.0) L 09/13/21 05:22 Reactive Lymphs % (Man) 0 % 09/13/21 05:22 Monocytes % (Manual) 6.0 % (0.0-7.3) 09/13/21 05:22 Eosinophils % (Manual) 4.0 % (0.0-4.3) 09/13/21 05:22 Basophils % (Manual) 1.0 % (0.0-1.8) 09/13/21 05:22 Metamyelocytes % 3.0 % 09/13/21 05:22 Myelocytes % 0 % 09/13/21 05:22 Promyelocytes % 0 % 09/13/21 05:22 Blast Cells % 0 % 09/13/21 05:22 Nucleated RBC % Not Reportable 09/13/21 05:22 Seg Neutrophils # 11.4 K/mm3 (1.8-7.7) H 09/11/21 04:40 Seg Neutrophils # Man 10.4 K/mm3 (1.8-7.7) H 09/13/21 05:22 Band Neutrophils # 0.0 K/mm3 09/13/21 05:22 Lymphocytes # (Manual) 1.4 K/mm3 (1.2-5.4) 09/13/21 05:22 Abs React Lymphs (Man) 0.0 K/mm3 09/13/21 05:22 Monocytes # (Manual) 0.8 K/mm3 (0.0-0.8) 09/13/21 05:22 Eosinophils # (Manual) 0.5 K/mm3 (0.0-0.4) H 09/13/21 05:22 Basophils # (Manual) 0.1 K/mm3 (0.0-0.1) 09/13/21 05:22 Metamyelocytes # 0.4 K/mm3 09/13/21 05:22 Myelocytes # 0.0 K/mm3 09/13/21 05:22 Promyelocytes # 0.0 K/mm3 09/13/21 05:22 Blast Cells # 0.0 K/mm3 09/13/21 05:22 WBC Morphology Not Reportable 09/13/21 05:22 Hypersegmented Neuts Not Reportable 09/13/21 05:22 Hyposegmented Neuts Not Reportable 09/13/21 05:22 Hypogranular Neuts Not Reportable 09/13/21 05:22 Smudge Cells Not Reportable 09/13/21 05:22 Toxic Granulation Not Reportable 09/13/21 05:22 Toxic Vacuolation Not Reportable 09/13/21 05:22 Dohle Bodies Not Reportable 09/13/21 05:22 Pelger-Huet Anomaly Not Reportable 09/13/21 05:22 Jeannine Rods Not Reportable 09/13/21 05:22 Platelet Estimate Consistent w auto 09/13/21 05:22 Clumped Platelets Not Reportable 09/13/21 05:22 Plt Clumps, EDTA Not Reportable 09/13/21 05:22 Large Platelets Rare 09/13/21 05:22 Giant Platelets Not Reportable 09/13/21 05:22 Platelet Satelliting Not Reportable 09/13/21 05:22 Plt Morphology Comment Not Reportable 09/13/21 05:22 RBC Morphology Not Reportable 09/13/21 05:22 Dimorphic RBCs Not Reportable 09/13/21 05:22 Polychromasia Not Reportable 09/13/21 05:22 Hypochromasia Not Reportable 09/13/21 05:22 Poikilocytosis Few 09/13/21 05:22 Anisocytosis Few 09/13/21 05:22 Microcytosis Not Reportable 09/13/21 05:22 Macrocytosis Not Reportable 09/13/21 05:22 Spherocytes Not Reportable 09/13/21 05:22 Pappenheimer Bodies Not Reportable 09/13/21 05:22 Sickle Cells Not Reportable 09/13/21 05:22 Target Cells Not Reportable 09/13/21 05:22 Tear Drop Cells Rare 09/13/21 05:22 Ovalocytes Rare 09/13/21 05:22 Helmet Cells Rare 09/13/21 05:22 [place] Bodies Not Reportable 09/13/21 05:22 [place] Rings Not Reportable 09/13/21 05:22 [place] Cells Not Reportable 09/13/21 05:22 Bite Cells Not Reportable 09/13/21 05:22 Crenated Cell Not Reportable 09/13/21 05:22 Elliptocytes Not Reportable 09/13/21 05:22 Acanthocytes (Spur) Not Reportable 09/13/21 05:22 Rouleaux Not Reportable 09/13/21 05:22 Hemoglobin C Crystals Not Reportable 09/13/21 05:22 Schistocytes Not Reportable 09/13/21 05:22 Malaria parasites Not Reportable 09/13/21 05:22 [place] Bodies Not Reportable 09/13/21 05:22 Hem Pathologist Commnt No 09/13/21 05:22 Sodium 137 mmol/L (137-145) 09/13/21 05:22 Potassium 3.4 mmol/L (3.6-5.0) L 09/13/21 05:22 Chloride 101.6 mmol/L (98-107) 09/13/21 05:22 Carbon Dioxide 23 mmol/L (22-30) 09/13/21 05:22 Anion Gap 16 mmol/L 09/13/21 05:22 BUN 8 mg/dL (7-17) 09/13/21 05:22 Creatinine 0.6 mg/dL (0.6-1.2) 09/13/21 05:22 Estimated GFR > 60 ml/min 09/13/21 05:22 BUN/Creatinine Ratio 13 % 09/13/21 05:22 Glucose 114 mg/dL (65-100) H 09/13/21 05:22 POC Glucose 182 mg/dL (70-105) H 09/10/21 18:23 Calcium 9.2 mg/dL (8.4-10.2) 09/13/21 05:22 Phosphorus 3.00 mg/dL (2.5-4.5) 09/11/21 04:40 Magnesium 2.20 mg/dL (1.7-2.3) 09/11/21 04:40 Total Bilirubin 0.80 mg/dL (0.1-1.2) 09/12/21 05:11 AST 73 units/L (5-40) H 09/12/21 05:11 ALT 77 units/L (7-56) H 09/12/21 05:11 Alkaline Phosphatase 92 units/L (35-129) 09/12/21 05:11 Total Creatine Kinase 833 units/L (30-135) H 09/13/21 05:22 Total Protein 6.3 g/dL (6.3-8.2) 09/12/21 05:11 Albumin 3.5 g/dL (3.9-5) L 09/12/21 05:11 Albumin/Globulin Ratio 1.3 % 09/12/21 05:11 HCG, Quant < 2 mIU/mL (0-4) 09/08/21 19:35 Urine Color Yellow (Yellow) 09/13/21 17:43 Urine Turbidity Cloudy (Clear) 09/13/21 17:43 Urine pH 5.0 (5.0-7.0) 09/13/21 17:43 Urine Protein <15 mg/dl mg/dL (Negative) 09/13/21 17:43 Urine Glucose (UA) Negative mg/dL (Negative) 09/13/21 17:43 Urine Ketones Negative mg/dL (Negative) 09/13/21 17:43 Urine Nitrite Negative (Negative) 09/13/21 17:43 Ur Reducing Substances Not Reportable 09/13/21 17:43 Urine Bilirubin Negative (Negative) 09/13/21 17:43 Urine Ictotest Not Reportable 09/13/21 17:43 Urine Urobilinogen < 2.0 mg/dL (<2.0) 09/13/21 17:43 Ur Leukocyte Esterase Negative (Negative) 09/13/21 17:43 Urine WBC (Auto) 5.0 /HPF (0.0-6.0) 09/13/21 17:43 Urine RBC (Auto) 1.0 /HPF (0.0-6.0) 09/13/21 17:43 U Epithel Cells (Auto) 4.0 /HPF (0-13.0) 09/13/21 17:43 Urine Mucus Few /HPF 09/13/21 17:43 Salicylates < 0.3 mg/dL (2.8-20.0) L 09/08/21 19:35 Urine Opiates Screen Negative 09/13/21 17:43 Urine Methadone Screen Negative 09/13/21 17:43 Acetaminophen 5.0 ug/mL (10.0-30.0) L 09/08/21 19:35 Ur Barbiturates Screen Negative 09/13/21 17:43 Ur Phencyclidine Scrn Negative 09/13/21 17:43 Ur Amphetamines Screen Negative 09/13/21 17:43 U Benzodiazepines Scrn Negative 09/13/21 17:43 Urine Cocaine Screen Negative 09/13/21 17:43 U Marijuana (THC) Screen Negative 09/13/21 17:43 Drugs of Abuse Note Disclamer 09/13/21 17:43 Plasma/Serum Alcohol < 0.01 % (0-0.07) 09/08/21 19:35 SARS-CoV-2 (PCR) Negative (Negative) 09/13/21 15:10 Hepatitis A IgM Ab Non-reactive (NonReactive) 09/10/21 05:16 Hep Bs Antigen Non-reactive (Negative) 09/10/21 05:16 Hep B Core IgM Ab Non-reactive (NonReactive) 09/10/21 05:16 Hepatitis C Antibody Non-reactive (NonReactive) 09/10/21 05:16 Microbiology: Microbiology 09/09/21 11:17 Peripheral/Venous Blood Culture - Preliminary NO GROWTH AFTER 4 DAYS 09/09/21 11:17 Peripheral/Venous Blood Culture - Preliminary NO GROWTH AFTER 4 DAYS [place]/IV: Voiding Method Toilet Active Medications - Current Medications Current Medications: Generic Name Dose Route Start Last Admin Trade Name Freq PRN Reason Stop Dose Admin Acetaminophen 650 mg 09/08/21 22:08 Acetaminophen 325 Mg Tab PO Q4H PRN Pain MILD(1-3)/Fever >100.5/JERONIMO Albuterol 2.5 mg 09/08/21 22:08 Albuterol 2.5 Mg/3 Ml Nebu IH Q3HRT PRN Shortness Of Breath Aripiprazole 5 mg 09/09/21 13:00 09/13/21 10:30 Aripiprazole 5 Mg Tab PO 5 mg QDAY SAMANTHA Administration Citalopram Hydrobromide 20 mg 09/13/21 12:00 09/13/21 13:49 Citalopram 20 Mg Tab PO 20 mg QDAY SAMANTHA Administration Doxepin HCl 25 mg 09/10/21 22:00 09/13/21 21:21 Doxepin 25 Mg Cap PO 25 mg QHS SAMANTHA Administration Enoxaparin Sodium 40 mg 09/09/21 10:00 09/13/21 10:30 Enoxaparin 40 Mg/0.4 Ml Inj SUB-Q 40 mg DAILY SAMANTHA Administration Protocol Famotidine 20 mg 09/10/21 10:00 09/13/21 21:21 Famotidine 20 Mg Tab PO 20 mg BID SAMANTHA Administration Gabapentin 300 mg 09/10/21 14:00 09/14/21 05:38 Gabapentin 300 Mg Cap PO 300 mg Q8HR SAMANTHA Administration Hydroxyzine Pamoate 50 mg 09/10/21 11:00 09/13/21 21:21 Hydroxyzine Pamoate 50 Mg Cap PO 50 mg BID SAMANTHA Administration Levetiracetam 750 mg 09/13/21 10:00 09/13/21 21:21 Levetiracetam 500 Mg Tab PO 750 mg BID SAMANTHA Administration Lorazepam 2 mg 09/10/21 18:27 09/11/21 12:50 Lorazepam 2 Mg/Ml Vial IV 2 mg Q4H PRN Administration Seizures Mirtazapine 7.5 mg 09/13/21 22:00 09/13/21 21:21 Mirtazapine 15 Mg Tab PO 7.5 mg QHS SAMANTHA Administration Morphine Sulfate 2 mg 09/08/21 22:08 Morphine 2 Mg/1 Ml Inj IV Q4H PRN Pain, Moderate (4-6) Morphine Sulfate 4 mg 09/08/21 22:08 Morphine 4 Mg/1 Ml Inj IV Q4H PRN Pain , Severe (7-10) Naloxone HCl 0.1 mg 09/08/21 18:20 Naloxone 0.4 Mg/1 Ml Inj IV Q2MIN PRN Res Rate </= 8 or 02 SAT < 92% Ondansetron HCl 4 mg 09/08/21 22:08 09/10/21 17:35 Ondansetron 4 Mg/2 Ml Inj IV 4 mg Q8H PRN Administration Nausea And Vomiting Sodium Chloride 10 ml 09/09/21 10:00 09/13/21 21:22 Sodium Chloride 0.9% 10 Ml Flush Syringe IV 10 ml BID SAMANTHA Administration Sodium Chloride 10 ml 09/08/21 22:08 Sodium Chloride 0.9% 10 Ml Flush Syringe IV PRN PRN LINE FLUSH
[2021-09-14] MEDS: ARIPiprazole 5 MG TAB PO SCH (09:29)
[2021-09-14] MEDS: levETIRAcetam 500 MG TAB PO SCH ×2 (09:29→21:45)
[2021-09-14] MEDS: FAMOTIDINE 20 MG TAB PO SCH ×2 (09:29→21:45)
[2021-09-14] MEDS: ENOXAPARIN 40 MG/0.4 ML INJ SUB-Q SCH (09:29)
[2021-09-14] MEDS: CITALOPRAM 20 MG TAB PO SCH (09:29)
--- NOTE | 2021-09-14 10:36 | Progress Note ---
Subjective - Reason for Consult Consult date: 09/14/21 Reason for consult: OD - Chief Complaint Chief complaint: The patient was seen today. She continues to be withdrawn, and quiet with flat affect. She doesn't really talk, but answers questions with one words or by nodding or shaking her head. The patient endorses hopelessness, and being depressed. She does deny SI/HI. I ask her what was going through her mind at present, she just stares at me and shakes her head. Will continue recommendation for inpatient treatment. The patient expresses hopelessness, and has passive suicidal thoughts. If discharged she runs the risk of deterioration of her mental health. The patient will be referred to a psychiatric facility once medically clear. ROS: Constitutional: Negative for weight loss ENT: Negative for stridor Respiratory: Negative for cough or hemoptysis All other systems reviewed and are negative MENTAL STATUS General Appearance and Behavior: age appropriate, evasive, guarded, poor eye contact, withdrawn Psychomotor Behavior: within normal limits Mood: depressed Affect and affective range: flat Thought Process: thought blocking Thought Content: hopelessness Speech: Normal volume and Regular rate and rhythm Suicidal Ideation: passive Homicidal Ideation: Denies HI Hallucinations: Denies Impulse Control: impaired Insight and Judgment: poor Memory: poor Attention: poor Orientation: alert Assessment Opiate Overdose Major Depressive Disorder Treatment Plan 1013 Celexa 20mg po daily Remeron 7.5mg po to induce appetite. Doxepin 25mg po qhs Gabapentin 300mg po q8h Abilify 5mg po daily Vistaril 50mg po BID Medical: per primary Sitter: defer to primary Disposition: Recommend acute psychiatric inpatient treatment Will follow. Thanks. Case staffed by Dr. Urena Mental Status Exam - Vital signs Last Vital Signs Temp 97.8 F 09/14/21 04:29 Pulse 72 09/14/21 04:29 Resp 20 09/14/21 04:29 BP 131/78 09/14/21 04:29 Pulse Ox 98 09/14/21 08:07
--- NOTE | 2021-09-14 10:44 | XRay Report ---
CHEST 1 VIEW INDICATION / CLINICAL INFORMATION: Leukocytosis. FINDINGS: SUPPORT DEVICES: None. HEART / MEDIASTINUM: No significant abnormality. LUNGS / PLEURA: No significant pulmonary or pleural abnormality. No pneumothorax. ADDITIONAL FINDINGS: No significant additional findings. IMPRESSION: 1. No acute findings. Signer Name: Kodak Hussein MD Signed: 09/14/2021 10:39 AM Workstation Name: [id number]
[2021-09-14 16:35] LABS: Color,Urine Yellow (Yellow)
[2021-09-14 16:36] LABS: Bilirubin,Urine Moderate (Negative); Blood,Urine Moderate (Negative); PH,Urine 7.5 (5.0-7.0); Protein,Urine <15 mg/dL mg/dL (Negative); Urobilinogen,Urine < 2.0 mg/dL (<2.0)
[2021-09-14 16:38] LABS: Ictotest,Urine Positive (Negative)
[2021-09-14 16:42] LABS: Hyaline Casts,Urine 6 /LPF; Mucus,Urine FEW /HPF
[2021-09-14] MEDS: MIRTAZAPINE 15 MG TAB PO SCH (21:45)
[2021-09-14] MEDS: DOXEPIN 25 MG CAP PO SCH (21:45)
[2021-09-15] MEDS: GABAPENTIN 300 MG CAP PO SCH ×3 (05:41→21:59)
[2021-09-15] MEDS: FAMOTIDINE 20 MG TAB PO SCH ×2 (09:19→21:59)
[2021-09-15] MEDS: CITALOPRAM 20 MG TAB PO SCH (09:19)
[2021-09-15] MEDS: ENOXAPARIN 40 MG/0.4 ML INJ SUB-Q SCH (09:19)
[2021-09-15] MEDS: ARIPiprazole 5 MG TAB PO SCH (09:19)
[2021-09-15] MEDS: levETIRAcetam 500 MG TAB PO SCH ×2 (09:19→21:58)
--- NOTE | 2021-09-15 09:54 | Progress Note ---
Assessment and Plan Assessment and plan: #Opioid overdose #Major depressive disorder -Continue Celexa, doxepin, gabapentin, Abilify, Vistaril. Psychiatry following. -Recommendations for acute psychiatric inpatient treatment #Polysubstance dependence #1013 According to patient's mother and chart review, the patient has been snorting heroin for 10 years. Patient was found unresponsive at home by family and EMS was called. Patient will begin to undergo opioid withdrawal while being hospitalized. Continue supportive management. Psychiatry consulted; appreciate recs. Patient placed under 1013. -Patient engages in the following substances: Heroin -Counseled patient about the importance of cessation of substance abuse. Offered resources to help with quitting. Patient expresses understanding. -Time: +15 mins #Seizures - Ativan as needed for breakthrough seizure. Continue p.o. keppra 750mg BID. - Neurology consulted; pending recs #Rhabdomyolysis-resolved Creatine kinase 5143-->7274-->4537--> 2341-->833 Likely secondary to opioid overdose and patient being found unresponsive at home. Encouraging p.o. intake. Continue to trend creatine kinase. #Mild UTI Resume Rocephin Follow-up urine culture #leukocytosis WBC 27--> 21.2--> 15.0-->13.3-->13.7-->16.6 Possibly secondary to stress response--> Demarginalization Blood cultures no growth. -Chest x-ray negative -Patient was denied acute inpatient psychiatric admission due to leukocytosis. Continue to follow #Elevated transaminasesresolved Possibly secondary to substance abuse. Unremarkable acute hepatitis panel. No current intervention necessary at this time for elevated transaminases. Continue to monitor #Metabolic acidosisresolved #Hypokalemia Resolved History Interval history: No new issues overnight Hospitalist Physical - Constitutional Vitals: Temp Pulse Resp BP Pulse Ox 98.0 F 95 H 16 94/66 96 09/15/21 05:05 09/15/21 05:05 09/15/21 05:05 09/15/21 05:05 09/15/21 05:05 General appearance: Present: no acute distress, well-nourished - EENT Eyes: Present: PERRL, EOM intact ENT: hearing intact, clear oral mucosa, dentition normal - Neck Neck: Present: supple, normal ROM - Respiratory Respiratory effort: normal Respiratory: bilateral: CTA - Cardiovascular Rhythm: regular Heart Sounds: Present: S1 & S2. Absent: gallop, rub - Extremities Extremities: no ischemia, No edema, Full ROM - Abdominal General gastrointestinal: soft, non-tender, non-distended, normal bowel sounds - Integumentary Integumentary: Present: clear, warm, dry - Neurologic Neurologic: CNII-XII intact, moves all extremities Results - Labs CBC & Chem 7: 09/13/21 14:43 09/13/21 05:22 Labs: Laboratory Last Values WBC 16.4 K/mm3 (4.5-11.0) H 09/13/21 14:43 RBC 4.79 M/mm3 (3.65-5.03) 09/13/21 14:43 Hgb 14.3 gm/dl (10.1-14.3) 09/13/21 14:43 Hct 41.2 % (30.3-42.9) 09/13/21 14:43 MCV 86 fl (79-97) 09/13/21 14:43 MCH 30 pg (28-32) 09/13/21 14:43 MCHC 35 % (30-34) H 09/13/21 14:43 RDW 13.3 % (13.2-15.2) 09/13/21 14:43 Plt Count 277 K/mm3 (140-440) 09/13/21 14:43 Lymph % (Auto) 13.2 % (13.4-35.0) L 09/11/21 04:40 Mckean % (Auto) 5.6 % (0.0-7.3) 09/11/21 04:40 Eos % (Auto) 4.5 % (0.0-4.3) H 09/11/21 04:40 Baso % (Auto) 0.7 % (0.0-1.8) 09/11/21 04:40 Lymph # (Auto) 2.0 K/mm3 (1.2-5.4) 09/11/21 04:40 Mckean # (Auto) 0.8 K/mm3 (0.0-0.8) 09/11/21 04:40 Eos # (Auto) 0.7 K/mm3 (0.0-0.4) H 09/11/21 04:40 Baso # (Auto) 0.1 K/mm3 (0.0-0.1) 09/11/21 04:40 Add Manual Diff Complete 09/13/21 05:22 Total Counted 100 09/13/21 05:22 Seg Neutrophils % 76.0 % (40.0-70.0) H 09/11/21 04:40 Seg Neuts % (Manual) 76.0 % (40.0-70.0) H 09/13/21 05:22 Band Neutrophils % 0 % 09/13/21 05:22 Lymphocytes % (Manual) 10.0 % (13.4-35.0) L 09/13/21 05:22 Reactive Lymphs % (Man) 0 % 09/13/21 05:22 Monocytes % (Manual) 6.0 % (0.0-7.3) 09/13/21 05:22 Eosinophils % (Manual) 4.0 % (0.0-4.3) 09/13/21 05:22 Basophils % (Manual) 1.0 % (0.0-1.8) 09/13/21 05:22 Metamyelocytes % 3.0 % 09/13/21 05:22 Myelocytes % 0 % 09/13/21 05:22 Promyelocytes % 0 % 09/13/21 05:22 Blast Cells % 0 % 09/13/21 05:22 Nucleated RBC % Not Reportable 09/13/21 05:22 Seg Neutrophils # 11.4 K/mm3 (1.8-7.7) H 09/11/21 04:40 Seg Neutrophils # Man 10.4 K/mm3 (1.8-7.7) H 09/13/21 05:22 Band Neutrophils # 0.0 K/mm3 09/13/21 05:22 Lymphocytes # (Manual) 1.4 K/mm3 (1.2-5.4) 09/13/21 05:22 Abs React Lymphs (Man) 0.0 K/mm3 09/13/21 05:22 Monocytes # (Manual) 0.8 K/mm3 (0.0-0.8) 09/13/21 05:22 Eosinophils # (Manual) 0.5 K/mm3 (0.0-0.4) H 09/13/21 05:22 Basophils # (Manual) 0.1 K/mm3 (0.0-0.1) 09/13/21 05:22 Metamyelocytes # 0.4 K/mm3 09/13/21 05:22 Myelocytes # 0.0 K/mm3 09/13/21 05:22 Promyelocytes # 0.0 K/mm3 09/13/21 05:22 Blast Cells # 0.0 K/mm3 09/13/21 05:22 WBC Morphology Not Reportable 09/13/21 05:22 Hypersegmented Neuts Not Reportable 09/13/21 05:22 Hyposegmented Neuts Not Reportable 09/13/21 05:22 Hypogranular Neuts Not Reportable 09/13/21 05:22 Smudge Cells Not Reportable 09/13/21 05:22 Toxic Granulation Not Reportable 09/13/21 05:22 Toxic Vacuolation Not Reportable 09/13/21 05:22 Dohle Bodies Not Reportable 09/13/21 05:22 Pelger-Huet Anomaly Not Reportable 09/13/21 05:22 Jeannine Rods Not Reportable 09/13/21 05:22 Platelet Estimate Consistent w auto 09/13/21 05:22 Clumped Platelets Not Reportable 09/13/21 05:22 Plt Clumps, EDTA Not Reportable 09/13/21 05:22 Large Platelets Rare 09/13/21 05:22 Giant Platelets Not Reportable 09/13/21 05:22 Platelet Satelliting Not Reportable 09/13/21 05:22 Plt Morphology Comment Not Reportable 09/13/21 05:22 RBC Morphology Not Reportable 09/13/21 05:22 Dimorphic RBCs Not Reportable 09/13/21 05:22 Polychromasia Not Reportable 09/13/21 05:22 Hypochromasia Not Reportable 09/13/21 05:22 Poikilocytosis Few 09/13/21 05:22 Anisocytosis Few 09/13/21 05:22 Microcytosis Not Reportable 09/13/21 05:22 Macrocytosis Not Reportable 09/13/21 05:22 Spherocytes Not Reportable 09/13/21 05:22 Pappenheimer Bodies Not Reportable 09/13/21 05:22 Sickle Cells Not Reportable 09/13/21 05:22 Target Cells Not Reportable 09/13/21 05:22 Tear Drop Cells Rare 09/13/21 05:22 Ovalocytes Rare 09/13/21 05:22 Helmet Cells Rare 09/13/21 05:22 [place] Bodies Not Reportable 09/13/21 05:22 [place] Rings Not Reportable 09/13/21 05:22 Bryce Cells Not Reportable 09/13/21 05:22 Bite Cells Not Reportable 09/13/21 05:22 Crenated Cell Not Reportable 09/13/21 05:22 Elliptocytes Not Reportable 09/13/21 05:22 Acanthocytes (Spur) Not Reportable 09/13/21 05:22 Rouleaux Not Reportable 09/13/21 05:22 Hemoglobin C Crystals Not Reportable 09/13/21 05:22 Schistocytes Not Reportable 09/13/21 05:22 Malaria parasites Not Reportable 09/13/21 05:22 Peter Bodies Not Reportable 09/13/21 05:22 Hem Pathologist Commnt No 09/13/21 05:22 Sodium 137 mmol/L (137-145) 09/13/21 05:22 Potassium 3.4 mmol/L (3.6-5.0) L 09/13/21 05:22 Chloride 101.6 mmol/L (98-107) 09/13/21 05:22 Carbon Dioxide 23 mmol/L (22-30) 09/13/21 05:22 Anion Gap 16 mmol/L 09/13/21 05:22 BUN 8 mg/dL (7-17) 09/13/21 05:22 Creatinine 0.6 mg/dL (0.6-1.2) 09/13/21 05:22 Estimated GFR > 60 ml/min 09/13/21 05:22 BUN/Creatinine Ratio 13 % 09/13/21 05:22 Glucose 114 mg/dL (65-100) H 09/13/21 05:22 POC Glucose 182 mg/dL (70-105) H 09/10/21 18:23 Calcium 9.2 mg/dL (8.4-10.2) 09/13/21 05:22 Phosphorus 3.00 mg/dL (2.5-4.5) 09/11/21 04:40 Magnesium 2.20 mg/dL (1.7-2.3) 09/11/21 04:40 Total Bilirubin 0.80 mg/dL (0.1-1.2) 09/12/21 05:11 AST 73 units/L (5-40) H 09/12/21 05:11 ALT 77 units/L (7-56) H 09/12/21 05:11 Alkaline Phosphatase 92 units/L (35-129) 09/12/21 05:11 Total Creatine Kinase 833 units/L (30-135) H 09/13/21 05:22 Total Protein 6.3 g/dL (6.3-8.2) 09/12/21 05:11 Albumin 3.5 g/dL (3.9-5) L 09/12/21 05:11 Albumin/Globulin Ratio 1.3 % 09/12/21 05:11 HCG, Quant < 2 mIU/mL (0-4) 09/08/21 19:35 Urine Color Yellow (Yellow) 09/14/21 Unknown Urine Turbidity Clear (Clear) 09/14/21 Unknown Urine pH 7.5 (5.0-7.0) H 09/14/21 Unknown Ur Specific [place] 1.005 (1.003-1.030) 09/14/21 Unknown Urine Protein <15 mg/dl mg/dL (Negative) 09/14/21 Unknown Urine Glucose (UA) Negative mg/dL (Negative) 09/14/21 Unknown Urine Ketones Negative mg/dL (Negative) 09/14/21 Unknown Urine Blood Moderate (Negative) A 09/14/21 Unknown Urine Nitrite Negative (Negative) 09/14/21 Unknown Ur Reducing Substances Not Reportable 09/13/21 17:43 Urine Bilirubin Moderate (Negative) 09/14/21 Unknown Urine Ictotest Positive (Negative) 09/14/21 Unknown Urine Urobilinogen < 2.0 mg/dL (<2.0) 09/14/21 Unknown Ur Leukocyte Esterase Moderate (Negative) 09/14/21 Unknown Urine WBC (Auto) 14.0 /HPF (0.0-6.0) H 09/14/21 Unknown Urine RBC (Auto) 32.0 /HPF (0.0-6.0) 09/14/21 Unknown U Epithel Cells (Auto) 2.0 /HPF (0-13.0) 09/14/21 Unknown Hyaline Casts 6 /LPF 09/14/21 Unknown Urine Mucus Few /HPF 09/14/21 Unknown Urine Yeast (Budding) 3+ /HPF 09/14/21 Unknown Salicylates < 0.3 mg/dL (2.8-20.0) L 09/08/21 19:35 Urine Opiates Screen Negative 09/13/21 17:43 Urine Methadone Screen Negative 09/13/21 17:43 Acetaminophen 5.0 ug/mL (10.0-30.0) L 09/08/21 19:35 Ur Barbiturates Screen Negative 09/13/21 17:43 Ur Phencyclidine Scrn Negative 09/13/21 17:43 Ur Amphetamines Screen Negative 09/13/21 17:43 U Benzodiazepines Scrn Negative 09/13/21 17:43 Urine Cocaine Screen Negative 09/13/21 17:43 U Marijuana (THC) Screen Negative 09/13/21 17:43 Drugs of Abuse Note Disclamer 09/13/21 17:43 Plasma/Serum Alcohol < 0.01 % (0-0.07) 09/08/21 19:35 SARS-CoV-2 (PCR) Negative (Negative) 09/13/21 15:10 Hepatitis A IgM Ab Non-reactive (NonReactive) 09/10/21 05:16 Hep Bs Antigen Non-reactive (Negative) 09/10/21 05:16 Hep B Core IgM Ab Non-reactive (NonReactive) 09/10/21 05:16 Hepatitis C Antibody Non-reactive (NonReactive) 09/10/21 05:16 Microbiology: Microbiology 09/09/21 11:17 Peripheral/Venous Blood Culture - Final NO GROWTH AFTER 5 DAYS 09/09/21 11:17 Peripheral/Venous Blood Culture - Final NO GROWTH AFTER 5 DAYS Pinedo/IV: Voiding Method Toilet Active Medications - Current Medications Current Medications: Generic Name Dose Route Start Last Admin Trade Name Freq PRN Reason Stop Dose Admin Acetaminophen 650 mg 09/08/21 22:08 Acetaminophen 325 Mg Tab PO Q4H PRN Pain MILD(1-3)/Fever >100.5/JERONIMO Albuterol 2.5 mg 09/08/21 22:08 Albuterol 2.5 Mg/3 Ml Nebu IH Q3HRT PRN Shortness Of Breath Aripiprazole 5 mg 09/09/21 13:00 09/15/21 09:19 Aripiprazole 5 Mg Tab PO 5 mg QDAY SAMANTHA Administration Citalopram Hydrobromide 20 mg 09/13/21 12:00 09/15/21 09:19 Citalopram 20 Mg Tab PO 20 mg QDAY SAMANTHA Administration Doxepin HCl 25 mg 09/10/21 22:00 09/14/21 21:45 Doxepin 25 Mg Cap PO 25 mg QHS SAMANTHA Administration Enoxaparin Sodium 40 mg 09/09/21 10:00 09/15/21 09:19 Enoxaparin 40 Mg/0.4 Ml Inj SUB-Q 40 mg DAILY SAMANTHA Administration Protocol Famotidine 20 mg 09/10/21 10:00 09/15/21 09:19 Famotidine 20 Mg Tab PO 20 mg BID SAMANTHA Administration Gabapentin 300 mg 09/10/21 14:00 09/15/21 05:41 Gabapentin 300 Mg Cap PO 300 mg Q8HR SAMANTHA Administration Hydroxyzine Pamoate 50 mg 09/10/21 11:00 09/15/21 09:19 Hydroxyzine Pamoate 50 Mg Cap PO 50 mg BID SAMANTHA Administration Ceftriaxone Sodium 1 gm in 50 mls @ 100 mls/hr 09/15/21 10:00 Rocephin/Ns 1 Gm/50 Ml IV Q24H SAMANTHA Protocol Levetiracetam 750 mg 09/13/21 10:00 09/15/21 09:19 Levetiracetam 500 Mg Tab PO 750 mg BID SAMANTHA Administration Lorazepam 2 mg 09/10/21 18:27 09/11/21 12:50 Lorazepam 2 Mg/Ml Vial IV 2 mg Q4H PRN Administration Seizures Mirtazapine 7.5 mg 09/13/21 22:00 09/14/21 21:45 Mirtazapine 15 Mg Tab PO 7.5 mg QHS SAMANTHA Administration Morphine Sulfate 2 mg 09/08/21 22:08 Morphine 2 Mg/1 Ml Inj IV Q4H PRN Pain, Moderate (4-6) Morphine Sulfate 4 mg 09/08/21 22:08 Morphine 4 Mg/1 Ml Inj IV Q4H PRN Pain , Severe (7-10) Naloxone HCl 0.1 mg 09/08/21 18:20 Naloxone 0.4 Mg/1 Ml Inj IV Q2MIN PRN Res Rate </= 8 or 02 SAT < 92% Ondansetron HCl 4 mg 09/08/21 22:08 09/10/21 17:35 Ondansetron 4 Mg/2 Ml Inj IV 4 mg Q8H PRN Administration Nausea And Vomiting Sodium Chloride 10 ml 09/09/21 10:00 09/15/21 09:19 Sodium Chloride 0.9% 10 Ml Flush Syringe IV 10 ml BID SAMANTHA Administration Sodium Chloride 10 ml 09/08/21 22:08 Sodium Chloride 0.9% 10 Ml Flush Syringe IV PRN PRN LINE FLUSH
[2021-09-15 10:10] LABS: Hematocrit 43.2 % (30.3-42.9); Hemoglobin 15.1 gm/dl (10.1-14.3); Mean Corpuscular HGB Conc 35 % (30-34); Mean Corpuscular Volume 87 fl (79-97); Platelet Count 315 K/mm3 (140-440); Red Cell Distribution Width 13.4 % (13.2-15.2)
[2021-09-15] MEDS: cefTRIAXone/NS 1 GM/50 ML 1 GM/50 ML BAG IV SCH (11:02)
--- NOTE | 2021-09-15 15:17 | Progress Note ---
Subjective - Reason for Consult Reason for consult: MHE - Chief Complaint Chief complaint: DATE SEEN: 09/15/21 Patient seen today in her room. Patient States that she is "doing good" Patient states that she recently lost her boyfriend of 15 years to drug overdose, and states that what triggered her episode. Patient has a hx of using heroine and states she uses it 6-7x daily. Admits last usage was just before she was brought in. Patient currently denies any SI/HI/AVH. Patient is awaiting placement at this time. The patient was seen today. She continues to be withdrawn, and quiet with flat affect. She doesn't really talk, but answers questions with one words or by nodding or shaking her head. The patient endorses hopelessness, and being depressed. She does deny SI/HI. I ask her what was going through her mind at present, she just stares at me and shakes her head. Will continue recommendation for inpatient treatment. The patient expresses hopelessness, and has passive suicidal thoughts. If discharged she runs the risk of deterioration of her mental health. The patient will be referred to a psychiatric facility once medically clear. ROS: Constitutional: Negative for weight loss ENT: Negative for stridor Respiratory: Negative for cough or hemoptysis All other systems reviewed and are negative MENTAL STATUS General Appearance and Behavior: age appropriate, evasive, guarded, poor eye contact, withdrawn Psychomotor Behavior: within normal limits Mood: depressed Affect and affective range: flat Thought Process: thought blocking Thought Content: hopelessness Speech: Normal volume and Regular rate and rhythm Suicidal Ideation: passive Homicidal Ideation: Denies HI Hallucinations: Denies Impulse Control: impaired Insight and Judgment: poor Memory: poor Attention: poor Orientation: alert Assessment Opiate Overdose Major Depressive Disorder Treatment Plan 1013 Celexa 20mg po daily Remeron 7.5mg po to induce appetite. Doxepin 25mg po qhs Gabapentin 300mg po q8h Abilify 5mg po daily Vistaril 50mg po BID Medical: per primary Sitter: defer to primary Disposition: Recommend acute psychiatric inpatient treatment Will follow. Thanks. Case staffed by Dr. Urena Mental Status Exam - Vital signs Last Vital Signs Temp 98.6 F 09/15/21 10:45 Pulse 124 H 09/15/21 10:30 Resp 16 09/15/21 05:05 BP 129/93 09/15/21 10:30 Pulse Ox 98 09/15/21 10:30
[2021-09-15] MEDS: MIRTAZAPINE 15 MG TAB PO SCH (21:59)
[2021-09-15] MEDS: DOXEPIN 25 MG CAP PO SCH (22:01)
[2021-09-16 04:30] LABS: Basophils # (Auto) 0.2 K/mm3 (0.0-0.1); Basophils % (Auto) 1.4 % (0.0-1.8); Eosinophils # (Auto) 0.4 K/mm3 (0.0-0.4); Hemoglobin 14.6 gm/dl (10.1-14.3); Lymphocytes # (Auto) 2.4 K/mm3 (1.2-5.4); Lymphocytes % (Auto) 16.7 % (13.4-35.0); Mean Corpuscular HGB Conc 33 % (30-34); Mean Corpuscular Volume 88 fl (79-97); Monocytes # (Auto) 0.8 K/mm3 (0.0-0.8); Monocytes % (Auto) 5.4 % (0.0-7.3); Platelet Count 285 K/mm3 (140-440); Red Blood Count 5.01 M/mm3 (3.65-5.03); Red Cell Distribution Width 13.8 % (13.2-15.2)
[2021-09-16] MEDS: GABAPENTIN 300 MG CAP PO SCH ×3 (05:24→22:08)
[2021-09-16] MEDS: ARIPiprazole 5 MG TAB PO SCH (09:14)
[2021-09-16] MEDS: ENOXAPARIN 40 MG/0.4 ML INJ SUB-Q SCH (09:14)
[2021-09-16] MEDS: FAMOTIDINE 20 MG TAB PO SCH ×2 (09:14→22:08)
[2021-09-16] MEDS: levETIRAcetam 500 MG TAB PO SCH ×2 (09:14→22:07)
[2021-09-16] MEDS: CITALOPRAM 20 MG TAB PO SCH (09:14)
[2021-09-16] MEDS: cefTRIAXone/NS 1 GM/50 ML 1 GM/50 ML BAG IV SCH (09:15)
--- NOTE | 2021-09-16 11:26 | Progress Note ---
Assessment and Plan Assessment and plan: #Opioid overdose #Major depressive disorder -Continue Celexa, doxepin, gabapentin, Abilify, Vistaril. Psychiatry following. -Recommendations for acute psychiatric inpatient treatment #Polysubstance dependence #1013 According to patient's mother and chart review, the patient has been snorting heroin for 10 years. Patient was found unresponsive at home by family and EMS was called. Patient will begin to undergo opioid withdrawal while being hospitalized. Continue supportive management. Psychiatry consulted; appreciate recs. Patient placed under 1013. -Patient engages in the following substances: Heroin -Counseled patient about the importance of cessation of substance abuse. Offered resources to help with quitting. Patient expresses understanding. -Time: +15 mins #Seizures - Ativan as needed for breakthrough seizure. Continue p.o. keppra 750mg BID. - Neurology consulted; pending recs #Rhabdomyolysis-resolved Creatine kinase 5143-->7274-->4537--> 2341-->833 Likely secondary to opioid overdose and patient being found unresponsive at home. Encouraging p.o. intake. Continue to trend creatine kinase. #Mild UTI Resume Rocephin Follow-up urine culture #leukocytosis WBC improved to 14K Possibly secondary to stress response--> Demarginalization Blood cultures no growth. -Chest x-ray negative -Patient was denied acute inpatient psychiatric admission due to leukocytosis. Continue to follow #Elevated transaminasesresolved Possibly secondary to substance abuse. Unremarkable acute hepatitis panel. No current intervention necessary at this time for elevated transaminases. Continue to monitor #Metabolic acidosisresolved #Hypokalemia Resolved History Interval history: No new issues overnight Hospitalist Physical - Constitutional Vitals: Temp Pulse Resp BP Pulse Ox 98.6 F 124 H 16 129/93 98 09/15/21 10:45 09/15/21 10:30 09/15/21 05:05 09/15/21 10:30 09/16/21 09:31 General appearance: Present: no acute distress, well-nourished - EENT Eyes: Present: PERRL, EOM intact ENT: hearing intact, clear oral mucosa, dentition normal - Neck Neck: Present: supple, normal ROM - Respiratory Respiratory effort: normal Respiratory: bilateral: CTA - Cardiovascular Rhythm: regular Heart Sounds: Present: S1 & S2. Absent: gallop, rub - Extremities Extremities: no ischemia, No edema, Full ROM - Abdominal General gastrointestinal: soft, non-tender, non-distended, normal bowel sounds - Integumentary Integumentary: Present: clear, warm, dry - Neurologic Neurologic: CNII-XII intact, moves all extremities Results - Labs CBC & Chem 7: 09/16/21 03:41 09/13/21 05:22 Labs: Laboratory Last Values WBC 14.4 K/mm3 (4.5-11.0) H 09/16/21 03:41 RBC 5.01 M/mm3 (3.65-5.03) 09/16/21 03:41 Hgb 14.6 gm/dl (10.1-14.3) H 09/16/21 03:41 Hct 44.0 % (30.3-42.9) H 09/16/21 03:41 MCV 88 fl (79-97) 09/16/21 03:41 MCH 29 pg (28-32) 09/16/21 03:41 MCHC 33 % (30-34) 09/16/21 03:41 RDW 13.8 % (13.2-15.2) 09/16/21 03:41 Plt Count 285 K/mm3 (140-440) 09/16/21 03:41 Lymph % (Auto) 16.7 % (13.4-35.0) 09/16/21 03:41 Baldwin % (Auto) 5.4 % (0.0-7.3) 09/16/21 03:41 Eos % (Auto) 3.0 % (0.0-4.3) 09/16/21 03:41 Baso % (Auto) 1.4 % (0.0-1.8) 09/16/21 03:41 Lymph # (Auto) 2.4 K/mm3 (1.2-5.4) 09/16/21 03:41 Baldwin # (Auto) 0.8 K/mm3 (0.0-0.8) 09/16/21 03:41 Eos # (Auto) 0.4 K/mm3 (0.0-0.4) 09/16/21 03:41 Baso # (Auto) 0.2 K/mm3 (0.0-0.1) H 09/16/21 03:41 Add Manual Diff Complete 09/13/21 05:22 Total Counted 100 09/13/21 05:22 Seg Neutrophils % 73.5 % (40.0-70.0) H 09/16/21 03:41 Seg Neuts % (Manual) 76.0 % (40.0-70.0) H 09/13/21 05:22 Band Neutrophils % 0 % 09/13/21 05:22 Lymphocytes % (Manual) 10.0 % (13.4-35.0) L 09/13/21 05:22 Reactive Lymphs % (Man) 0 % 09/13/21 05:22 Monocytes % (Manual) 6.0 % (0.0-7.3) 09/13/21 05:22 Eosinophils % (Manual) 4.0 % (0.0-4.3) 09/13/21 05:22 Basophils % (Manual) 1.0 % (0.0-1.8) 09/13/21 05:22 Metamyelocytes % 3.0 % 09/13/21 05:22 Myelocytes % 0 % 09/13/21 05:22 Promyelocytes % 0 % 09/13/21 05:22 Blast Cells % 0 % 09/13/21 05:22 Nucleated RBC % Not Reportable 09/13/21 05:22 Seg Neutrophils # 10.6 K/mm3 (1.8-7.7) H 09/16/21 03:41 Seg Neutrophils # Man 10.4 K/mm3 (1.8-7.7) H 09/13/21 05:22 Band Neutrophils # 0.0 K/mm3 09/13/21 05:22 Lymphocytes # (Manual) 1.4 K/mm3 (1.2-5.4) 09/13/21 05:22 Abs React Lymphs (Man) 0.0 K/mm3 09/13/21 05:22 Monocytes # (Manual) 0.8 K/mm3 (0.0-0.8) 09/13/21 05:22 Eosinophils # (Manual) 0.5 K/mm3 (0.0-0.4) H 09/13/21 05:22 Basophils # (Manual) 0.1 K/mm3 (0.0-0.1) 09/13/21 05:22 Metamyelocytes # 0.4 K/mm3 09/13/21 05:22 Myelocytes # 0.0 K/mm3 09/13/21 05:22 Promyelocytes # 0.0 K/mm3 09/13/21 05:22 Blast Cells # 0.0 K/mm3 09/13/21 05:22 WBC Morphology Not Reportable 09/13/21 05:22 Hypersegmented Neuts Not Reportable 09/13/21 05:22 Hyposegmented Neuts Not Reportable 09/13/21 05:22 Hypogranular Neuts Not Reportable 09/13/21 05:22 Smudge Cells Not Reportable 09/13/21 05:22 Toxic Granulation Not Reportable 09/13/21 05:22 Toxic Vacuolation Not Reportable 09/13/21 05:22 Dohle Bodies Not Reportable 09/13/21 05:22 Pelger-Huet Anomaly Not Reportable 09/13/21 05:22 Jeannine Rods Not Reportable 09/13/21 05:22 Platelet Estimate Consistent w auto 09/13/21 05:22 Clumped Platelets Not Reportable 09/13/21 05:22 Plt Clumps, EDTA Not Reportable 09/13/21 05:22 Large Platelets Rare 09/13/21 05:22 Giant Platelets Not Reportable 09/13/21 05:22 Platelet Satelliting Not Reportable 09/13/21 05:22 Plt Morphology Comment Not Reportable 09/13/21 05:22 RBC Morphology Not Reportable 09/13/21 05:22 Dimorphic RBCs Not Reportable 09/13/21 05:22 Polychromasia Not Reportable 09/13/21 05:22 Hypochromasia Not Reportable 09/13/21 05:22 Poikilocytosis Few 09/13/21 05:22 Anisocytosis Few 09/13/21 05:22 Microcytosis Not Reportable 09/13/21 05:22 Macrocytosis Not Reportable 09/13/21 05:22 Spherocytes Not Reportable 09/13/21 05:22 Pappenheimer Bodies Not Reportable 09/13/21 05:22 Sickle Cells Not Reportable 09/13/21 05:22 Target Cells Not Reportable 09/13/21 05:22 Tear Drop Cells Rare 09/13/21 05:22 Ovalocytes Rare 09/13/21 05:22 Helmet Cells Rare 09/13/21 05:22 [place] Bodies Not Reportable 09/13/21 05:22 Kinderhook Rings Not Reportable 09/13/21 05:22 Roscoe Cells Not Reportable 09/13/21 05:22 Bite Cells Not Reportable 09/13/21 05:22 Crenated Cell Not Reportable 09/13/21 05:22 Elliptocytes Not Reportable 09/13/21 05:22 Acanthocytes (Spur) Not Reportable 09/13/21 05:22 Rouleaux Not Reportable 09/13/21 05:22 Hemoglobin C Crystals Not Reportable 09/13/21 05:22 Schistocytes Not Reportable 09/13/21 05:22 Malaria parasites Not Reportable 09/13/21 05:22 Peter Bodies Not Reportable 09/13/21 05:22 Hem Pathologist Commnt No 09/13/21 05:22 Sodium 137 mmol/L (137-145) 09/13/21 05:22 Potassium 3.4 mmol/L (3.6-5.0) L 09/13/21 05:22 Chloride 101.6 mmol/L (98-107) 09/13/21 05:22 Carbon Dioxide 23 mmol/L (22-30) 09/13/21 05:22 Anion Gap 16 mmol/L 09/13/21 05:22 BUN 8 mg/dL (7-17) 09/13/21 05:22 Creatinine 0.6 mg/dL (0.6-1.2) 09/13/21 05:22 Estimated GFR > 60 ml/min 09/13/21 05:22 BUN/Creatinine Ratio 13 % 09/13/21 05:22 Glucose 114 mg/dL (65-100) H 09/13/21 05:22 POC Glucose 182 mg/dL (70-105) H 09/10/21 18:23 Calcium 9.2 mg/dL (8.4-10.2) 09/13/21 05:22 Phosphorus 3.00 mg/dL (2.5-4.5) 09/11/21 04:40 Magnesium 2.20 mg/dL (1.7-2.3) 09/11/21 04:40 Total Bilirubin 0.80 mg/dL (0.1-1.2) 09/12/21 05:11 AST 73 units/L (5-40) H 09/12/21 05:11 ALT 77 units/L (7-56) H 09/12/21 05:11 Alkaline Phosphatase 92 units/L (35-129) 09/12/21 05:11 Total Creatine Kinase 833 units/L (30-135) H 09/13/21 05:22 Total Protein 6.3 g/dL (6.3-8.2) 09/12/21 05:11 Albumin 3.5 g/dL (3.9-5) L 09/12/21 05:11 Albumin/Globulin Ratio 1.3 % 09/12/21 05:11 HCG, Quant < 2 mIU/mL (0-4) 09/08/21 19:35 Urine Color Yellow (Yellow) 09/14/21 Unknown Urine Turbidity Clear (Clear) 09/14/21 Unknown Urine pH 7.5 (5.0-7.0) H 09/14/21 Unknown Ur Specific [place] 1.005 (1.003-1.030) 09/14/21 Unknown Urine Protein <15 mg/dl mg/dL (Negative) 09/14/21 Unknown Urine Glucose (UA) Negative mg/dL (Negative) 09/14/21 Unknown Urine Ketones Negative mg/dL (Negative) 09/14/21 Unknown Urine Blood Moderate (Negative) A 09/14/21 Unknown Urine Nitrite Negative (Negative) 09/14/21 Unknown Ur Reducing Substances Not Reportable 09/13/21 17:43 Urine Bilirubin Moderate (Negative) 09/14/21 Unknown Urine Ictotest Positive (Negative) 09/14/21 Unknown Urine Urobilinogen < 2.0 mg/dL (<2.0) 09/14/21 Unknown Ur Leukocyte Esterase Moderate (Negative) 09/14/21 Unknown Urine WBC (Auto) 14.0 /HPF (0.0-6.0) H 09/14/21 Unknown Urine RBC (Auto) 32.0 /HPF (0.0-6.0) 09/14/21 Unknown U Epithel Cells (Auto) 2.0 /HPF (0-13.0) 09/14/21 Unknown Hyaline Casts 6 /LPF 09/14/21 Unknown Urine Mucus Few /HPF 09/14/21 Unknown Urine Yeast (Budding) 3+ /HPF 09/14/21 Unknown Salicylates < 0.3 mg/dL (2.8-20.0) L 09/08/21 19:35 Urine Opiates Screen Negative 09/13/21 17:43 Urine Methadone Screen Negative 09/13/21 17:43 Acetaminophen 5.0 ug/mL (10.0-30.0) L 09/08/21 19:35 Ur Barbiturates Screen Negative 09/13/21 17:43 Ur Phencyclidine Scrn Negative 09/13/21 17:43 Ur Amphetamines Screen Negative 09/13/21 17:43 U Benzodiazepines Scrn Negative 09/13/21 17:43 Urine Cocaine Screen Negative 09/13/21 17:43 U Marijuana (THC) Screen Negative 09/13/21 17:43 Drugs of Abuse Note Disclamer 09/13/21 17:43 Plasma/Serum Alcohol < 0.01 % (0-0.07) 09/08/21 19:35 SARS-CoV-2 (PCR) Negative (Negative) 09/13/21 15:10 Hepatitis A IgM Ab Non-reactive (NonReactive) 09/10/21 05:16 Hep Bs Antigen Non-reactive (Negative) 09/10/21 05:16 Hep B Core IgM Ab Non-reactive (NonReactive) 09/10/21 05:16 Hepatitis C Antibody Non-reactive (NonReactive) 09/10/21 05:16 Microbiology: Microbiology 09/14/21 Unknown Urine,Clean Catch Urine Culture - Preliminary Pinedo/IV: Voiding Method Toilet Active Medications - Current Medications Current Medications: Generic Name Dose Route Start Last Admin Trade Name Freq PRN Reason Stop Dose Admin Acetaminophen 650 mg 09/08/21 22:08 Acetaminophen 325 Mg Tab PO Q4H PRN Pain MILD(1-3)/Fever >100.5/JERONIMO Albuterol 2.5 mg 09/08/21 22:08 Albuterol 2.5 Mg/3 Ml Nebu IH Q3HRT PRN Shortness Of Breath Aripiprazole 5 mg 09/09/21 13:00 09/16/21 09:14 Aripiprazole 5 Mg Tab PO 5 mg QDAY SAMANTHA Administration Citalopram Hydrobromide 20 mg 09/13/21 12:00 09/16/21 09:14 Citalopram 20 Mg Tab PO 20 mg QDAY SAMANTHA Administration Doxepin HCl 25 mg 09/10/21 22:00 09/15/21 22:01 Doxepin 25 Mg Cap PO 25 mg QHS SAMANTHA Administration Enoxaparin Sodium 40 mg 09/09/21 10:00 09/16/21 09:14 Enoxaparin 40 Mg/0.4 Ml Inj SUB-Q 40 mg DAILY SAMANTHA Administration Protocol Famotidine 20 mg 09/10/21 10:00 09/16/21 09:14 Famotidine 20 Mg Tab PO 20 mg BID SAMANTHA Administration Gabapentin 300 mg 09/10/21 14:00 09/16/21 05:24 Gabapentin 300 Mg Cap PO 300 mg Q8HR SAMANTHA Administration Hydroxyzine Pamoate 50 mg 09/10/21 11:00 09/16/21 09:14 Hydroxyzine Pamoate 50 Mg Cap PO 50 mg BID SAMANTHA Administration Ceftriaxone Sodium 1 gm in 50 mls @ 100 mls/hr 09/15/21 10:00 09/16/21 09:15 Rocephin/Ns 1 Gm/50 Ml IV 100 mls/hr Q24H SAMANTHA Administration Protocol Levetiracetam 750 mg 09/13/21 10:00 09/16/21 09:14 Levetiracetam 500 Mg Tab PO 750 mg BID SAMANTHA Administration Lorazepam 2 mg 09/10/21 18:27 09/11/21 12:50 Lorazepam 2 Mg/Ml Vial IV 2 mg Q4H PRN Administration Seizures Mirtazapine 7.5 mg 09/13/21 22:00 09/15/21 21:59 Mirtazapine 15 Mg Tab PO 7.5 mg QHS SAMANTHA Administration Morphine Sulfate 2 mg 09/08/21 22:08 Morphine 2 Mg/1 Ml Inj IV Q4H PRN Pain, Moderate (4-6) Morphine Sulfate 4 mg 09/08/21 22:08 Morphine 4 Mg/1 Ml Inj IV Q4H PRN Pain , Severe (7-10) Naloxone HCl 0.1 mg 09/08/21 18:20 Naloxone 0.4 Mg/1 Ml Inj IV Q2MIN PRN Res Rate </= 8 or 02 SAT < 92% Ondansetron HCl 4 mg 09/08/21 22:08 09/10/21 17:35 Ondansetron 4 Mg/2 Ml Inj IV 4 mg Q8H PRN Administration Nausea And Vomiting Sodium Chloride 10 ml 09/09/21 10:00 09/16/21 09:15 Sodium Chloride 0.9% 10 Ml Flush Syringe IV 10 ml BID SAMANTHA Administration Sodium Chloride 10 ml 09/08/21 22:08 Sodium Chloride 0.9% 10 Ml Flush Syringe IV PRN PRN LINE FLUSH Nutrition/Malnutrition Assess - Dietary Evaluation Nutrition/Malnutrition Findings: Nutrition Notes Start: 09/15/21 12:06 Freq: Status: Active Protocol: Document 09/15/21 12:06 BLESSING (Rec: 09/15/21 12:11 BLESSING [id number]) Nutrition Notes Need for Assessment generated from: LOS Initial or Follow up Assessment Other Pertinent Diagnosis Opioid overdose, MDD, seizures Current Diet GI soft Labs/Tests No current available Pertinent Medications Remeron Height 5 ft 7 in Weight 79.3 kg [place] Body Weight (kg) 61.36 BMI 27.3 Weight Status Overweight Subjective/Other Information Pt screened for LOS. She has consumed 46% of meals since admission. Percent of energy/protein needs met: 47% energy 60% pro Burn Absent Trauma Absent Current % PO Poor (25-49%) Minimum of two criteria No #1 Nutrition Diagnosis Inadequate protein-energy intake Etiology opioid overdose As Evidenced by Signs and Symptoms PO intake meeting <75% energy and pro needs Is patient on ventilator? No Is Patient Ambulatory and/or Out of Bed Yes REE-([facility]-ambulatory/OOB) [ 1963.819 [id number]] Calculation Used for Recommendations [facility] Additional Notes Pro needs 0.8-1g/k-79g/ day Fluid needs 1ml/kcal Nutrition Intervention Change Diet Order: Continue current diet order Goal #1 PO intake to meet at least 75% energy and pro needs Anticipated Discharge Needs: None identified at this time Follow-Up By: 09/20/21 Additional Comments F/U: intakes, need for ONS, wt
--- NOTE | 2021-09-16 16:07 | Progress Note ---
Subjective - Reason for Consult Reason for consult: MHE - Chief Complaint Chief complaint: DATE SEEN: 09/16/21 Patient seen today. Patient mostly nods to questions asked. Patient did answer that on a scale of 1/10 her depression is a 6. Per nursing staff patient takes off all her clothes and anything that she is hooked on to whenever she needs to go the bathroom and lays back down without her clothes. Patient denies having any SI/HI/AVH at this time. Patient waiting on inpatient placement. 09/15/21 Patient seen today in her room. Patient States that she is "doing good" Patient states that she recently lost her boyfriend of 15 years to drug overdose, and states that what triggered her episode. Patient has a hx of using heroine and states she uses it 6-7x daily. Admits last usage was just before she was brought in. Patient currently denies any SI/HI/AVH. Patient is awaiting placement at this time. The patient was seen today. She continues to be withdrawn, and quiet with flat affect. She doesn't really talk, but answers questions with one words or by nodding or shaking her head. The patient endorses hopelessness, and being depressed. She does deny SI/HI. I ask her what was going through her mind at present, she just stares at me and shakes her head. Will continue recommendation for inpatient treatment. The patient expresses hopelessness, and has passive suicidal thoughts. If discharged she runs the risk of deterioration of her mental health. The patient will be referred to a psychiatric facility once medically clear. ROS: Constitutional: Negative for weight loss ENT: Negative for stridor Respiratory: Negative for cough or hemoptysis All other systems reviewed and are negative MENTAL STATUS General Appearance and Behavior: age appropriate, evasive, guarded, poor eye contact, withdrawn Psychomotor Behavior: within normal limits Mood: depressed Affect and affective range: flat Thought Process: thought blocking Thought Content: hopelessness Speech: Normal volume and Regular rate and rhythm Suicidal Ideation: passive Homicidal Ideation: Denies HI Hallucinations: Denies Impulse Control: impaired Insight and Judgment: poor Memory: poor Attention: poor Orientation: alert Assessment Opiate Overdose Major Depressive Disorder Treatment Plan 1013 Celexa 20mg po daily Remeron 7.5mg po to induce appetite. Doxepin 25mg po qhs Gabapentin 300mg po q8h Abilify 5mg po daily Vistaril 50mg po BID Medical: per primary Sitter: defer to primary Disposition: Recommend acute psychiatric inpatient treatment Will follow. Thanks. Case staffed by Dr. Urena Mental Status Exam - Vital signs Last Vital Signs Temp 98.2 F 09/16/21 12:36 Pulse 97 H 09/16/21 12:36 Resp 22 09/16/21 12:36 BP 116/78 09/16/21 12:36 Pulse Ox 98 09/16/21 12:36
[2021-09-16] MEDS: DOXEPIN 25 MG CAP PO SCH (22:07)
[2021-09-16] MEDS: MIRTAZAPINE 15 MG TAB PO SCH (22:08)
[2021-09-17] MEDS: GABAPENTIN 300 MG CAP PO SCH ×3 (05:38→21:37)
[2021-09-17 05:42] LABS: Basophils # (Auto) 0.1 K/mm3 (0.0-0.1); Basophils % (Auto) 0.5 % (0.0-1.8); Eosinophils # (Auto) 0.4 K/mm3 (0.0-0.4); Hematocrit 44.8 % (30.3-42.9); Lymphocytes # (Auto) 2.2 K/mm3 (1.2-5.4); Lymphocytes % (Auto) 15.8 % (13.4-35.0); Mean Corpuscular HGB Conc 34 % (30-34); Mean Corpuscular Volume 88 fl (79-97); Monocytes # (Auto) 0.8 K/mm3 (0.0-0.8); Monocytes % (Auto) 5.7 % (0.0-7.3); Platelet Count 288 K/mm3 (140-440); Red Blood Count 5.11 M/mm3 (3.65-5.03); Red Cell Distribution Width 13.8 % (13.2-15.2)
[2021-09-17] MEDS: ARIPiprazole 5 MG TAB PO SCH (09:19)
[2021-09-17] MEDS: FAMOTIDINE 20 MG TAB PO SCH ×2 (09:20→21:37)
[2021-09-17] MEDS: ENOXAPARIN 40 MG/0.4 ML INJ SUB-Q SCH (09:20)
[2021-09-17] MEDS: levETIRAcetam 500 MG TAB PO SCH ×2 (09:20→21:39)
[2021-09-17] MEDS: cefTRIAXone/NS 1 GM/50 ML 1 GM/50 ML BAG IV SCH (09:20)
[2021-09-17] MEDS: CITALOPRAM 20 MG TAB PO SCH (09:20)
--- NOTE | 2021-09-17 12:19 | Progress Note ---
Subjective - Reason for Consult Reason for consult: MHE - Chief Complaint Chief complaint: Date of service: 09/16/21 Patient seen today on the floor. Patient observed to nodding and shaking head when asked a question. Patient asked to verbalize and she agreed to it. Patient denies SI/HI/AVH, but admits to having depression of a 7/10. Patient states she is sleeping and eating well. DATE SEEN: 09/16/21 Patient seen today. Patient mostly nods to questions asked. Patient did answer that on a scale of 1/10 her depression is a 6. Per nursing staff patient takes off all her clothes and anything that she is hooked on to whenever she needs to go the bathroom and lays back down without her clothes. Patient denies having any SI/HI/AVH at this time. Patient waiting on inpatient placement. 09/15/21 Patient seen today in her room. Patient States that she is "doing good" Patient states that she recently lost her boyfriend of 15 years to drug overdose, and states that what triggered her episode. Patient has a hx of using heroine and states she uses it 6-7x daily. Admits last usage was just before she was brought in. Patient currently denies any SI/HI/AVH. Patient is awaiting placement at this time. The patient was seen today. She continues to be withdrawn, and quiet with flat affect. She doesn't really talk, but answers questions with one words or by nodding or shaking her head. The patient endorses hopelessness, and being depressed. She does deny SI/HI. I ask her what was going through her mind at present, she just stares at me and shakes her head. Will continue recommendation for inpatient treatment. The patient expresses hopelessness, and has passive suicidal thoughts. If discharged she runs the risk of deterioration of her mental health. The patient will be referred to a psychiatric facility once medically clear. ROS: Constitutional: Negative for weight loss ENT: Negative for stridor Respiratory: Negative for cough or hemoptysis All other systems reviewed and are negative MENTAL STATUS General Appearance and Behavior: age appropriate, evasive, guarded, poor eye contact, withdrawn Psychomotor Behavior: within normal limits Mood: depressed Affect and affective range: flat Thought Process: thought blocking Thought Content: hopelessness Speech: Normal volume and Regular rate and rhythm Suicidal Ideation: passive Homicidal Ideation: Denies HI Hallucinations: Denies Impulse Control: impaired Insight and Judgment: poor Memory: poor Attention: poor Orientation: alert Assessment Opiate Overdose Major Depressive Disorder Treatment Plan 1013 Celexa 20mg po daily Remeron 7.5mg po to induce appetite. Doxepin 25mg po qhs Gabapentin 300mg po q8h Abilify 5mg po daily Vistaril 50mg po BID Medical: per primary Sitter: defer to primary Disposition: Recommend acute psychiatric inpatient treatment Will follow. Thanks. Case staffed by Dr. Urena Mental Status Exam - Vital signs Last Vital Signs Temp 99.0 F 09/16/21 20:08 Pulse 95 H 09/16/21 20:08 Resp 18 09/16/21 22:00 BP 103/73 09/16/21 20:08 Pulse Ox 97 09/17/21 08:00
--- NOTE | 2021-09-17 15:55 | Progress Note ---
Assessment and Plan Assessment and plan: #Opioid overdose #Major depressive disorder -Continue Celexa, doxepin, gabapentin, Abilify, Vistaril. Psychiatry following. -Recommendations for acute psychiatric inpatient treatment #Polysubstance dependence #1013 According to patient's mother and chart review, the patient has been snorting heroin for 10 years. Patient was found unresponsive at home by family and EMS was called. Patient will begin to undergo opioid withdrawal while being hospitalized. Continue supportive management. Psychiatry consulted; appreciate recs. Patient placed under 1013. -Patient engages in the following substances: Heroin -Counseled patient about the importance of cessation of substance abuse. Offered resources to help with quitting. Patient expresses understanding. -Time: +15 mins #Seizures - Ativan as needed for breakthrough seizure. Continue p.o. keppra 750mg BID. - Neurology consulted; pending recs #Rhabdomyolysis-resolved Creatine kinase 5143-->7274-->4537--> 2341-->833 Likely secondary to opioid overdose and patient being found unresponsive at home. Encouraging p.o. intake. Continue to trend creatine kinase. #Mild UTI Resume Rocephin Follow-up urine culture #leukocytosis WBC improved to 14K Possibly secondary to stress response--> Demarginalization and mild UTI Blood cultures no growth. -Chest x-ray negative -Patient was denied acute inpatient psychiatric admission due to leukocytosis. Continue to follow #Elevated transaminasesresolved Possibly secondary to substance abuse. Unremarkable acute hepatitis panel. No current intervention necessary at this time for elevated transaminases. Continue to monitor #Metabolic acidosisresolved #Hypokalemia Resolved History Interval history: No new issues overnight Hospitalist Physical - Constitutional Vitals: Temp Pulse Resp BP Pulse Ox 98.3 F 117 H 18 122/91 94 09/17/21 11:54 09/17/21 11:54 09/17/21 11:54 09/17/21 11:54 09/17/21 11:54 General appearance: Present: no acute distress, well-nourished - EENT Eyes: Present: PERRL, EOM intact ENT: hearing intact, clear oral mucosa, dentition normal - Neck Neck: Present: supple, normal ROM - Respiratory Respiratory effort: normal Respiratory: bilateral: CTA - Cardiovascular Rhythm: regular Heart Sounds: Present: S1 & S2. Absent: gallop, rub - Extremities Extremities: no ischemia, No edema, Full ROM - Abdominal General gastrointestinal: soft, non-tender, non-distended, normal bowel sounds - Integumentary Integumentary: Present: clear, warm, dry - Neurologic Neurologic: CNII-XII intact, moves all extremities Results - Labs CBC & Chem 7: 09/17/21 05:13 09/13/21 05:22 Labs: Laboratory Last Values WBC 14.2 K/mm3 (4.5-11.0) H 09/17/21 05:13 RBC 5.11 M/mm3 (3.65-5.03) H 09/17/21 05:13 Hgb 15.0 gm/dl (10.1-14.3) H 09/17/21 05:13 Hct 44.8 % (30.3-42.9) H 09/17/21 05:13 MCV 88 fl (79-97) 09/17/21 05:13 MCH 29 pg (28-32) 09/17/21 05:13 MCHC 34 % (30-34) 09/17/21 05:13 RDW 13.8 % (13.2-15.2) 09/17/21 05:13 Plt Count 288 K/mm3 (140-440) 09/17/21 05:13 Lymph % (Auto) 15.8 % (13.4-35.0) 09/17/21 05:13 [place] % (Auto) 5.7 % (0.0-7.3) 09/17/21 05:13 Eos % (Auto) 3.0 % (0.0-4.3) 09/17/21 05:13 Baso % (Auto) 0.5 % (0.0-1.8) 09/17/21 05:13 Lymph # (Auto) 2.2 K/mm3 (1.2-5.4) 09/17/21 05:13 [place] # (Auto) 0.8 K/mm3 (0.0-0.8) 09/17/21 05:13 Eos # (Auto) 0.4 K/mm3 (0.0-0.4) 09/17/21 05:13 Baso # (Auto) 0.1 K/mm3 (0.0-0.1) 09/17/21 05:13 Add Manual Diff Complete 09/13/21 05:22 Total Counted 100 09/13/21 05:22 Seg Neutrophils % 75.0 % (40.0-70.0) H 09/17/21 05:13 Seg Neuts % (Manual) 76.0 % (40.0-70.0) H 09/13/21 05:22 Band Neutrophils % 0 % 09/13/21 05:22 Lymphocytes % (Manual) 10.0 % (13.4-35.0) L 09/13/21 05:22 Reactive Lymphs % (Man) 0 % 09/13/21 05:22 Monocytes % (Manual) 6.0 % (0.0-7.3) 09/13/21 05:22 Eosinophils % (Manual) 4.0 % (0.0-4.3) 09/13/21 05:22 Basophils % (Manual) 1.0 % (0.0-1.8) 09/13/21 05:22 Metamyelocytes % 3.0 % 09/13/21 05:22 Myelocytes % 0 % 09/13/21 05:22 Promyelocytes % 0 % 09/13/21 05:22 Blast Cells % 0 % 09/13/21 05:22 Nucleated RBC % Not Reportable 09/13/21 05:22 Seg Neutrophils # 10.6 K/mm3 (1.8-7.7) H 09/17/21 05:13 Seg Neutrophils # Man 10.4 K/mm3 (1.8-7.7) H 09/13/21 05:22 Band Neutrophils # 0.0 K/mm3 09/13/21 05:22 Lymphocytes # (Manual) 1.4 K/mm3 (1.2-5.4) 09/13/21 05:22 Abs React Lymphs (Man) 0.0 K/mm3 09/13/21 05:22 Monocytes # (Manual) 0.8 K/mm3 (0.0-0.8) 09/13/21 05:22 Eosinophils # (Manual) 0.5 K/mm3 (0.0-0.4) H 09/13/21 05:22 Basophils # (Manual) 0.1 K/mm3 (0.0-0.1) 09/13/21 05:22 Metamyelocytes # 0.4 K/mm3 09/13/21 05:22 Myelocytes # 0.0 K/mm3 09/13/21 05:22 Promyelocytes # 0.0 K/mm3 09/13/21 05:22 Blast Cells # 0.0 K/mm3 09/13/21 05:22 WBC Morphology Not Reportable 09/13/21 05:22 Hypersegmented Neuts Not Reportable 09/13/21 05:22 Hyposegmented Neuts Not Reportable 09/13/21 05:22 Hypogranular Neuts Not Reportable 09/13/21 05:22 Smudge Cells Not Reportable 09/13/21 05:22 Toxic Granulation Not Reportable 09/13/21 05:22 Toxic Vacuolation Not Reportable 09/13/21 05:22 Dohle Bodies Not Reportable 09/13/21 05:22 Pelger-Huet Anomaly Not Reportable 09/13/21 05:22 Jeannine Rods Not Reportable 09/13/21 05:22 Platelet Estimate Consistent w auto 09/13/21 05:22 Clumped Platelets Not Reportable 09/13/21 05:22 Plt Clumps, EDTA Not Reportable 09/13/21 05:22 Large Platelets Rare 09/13/21 05:22 Giant Platelets Not Reportable 09/13/21 05:22 Platelet Satelliting Not Reportable 09/13/21 05:22 Plt Morphology Comment Not Reportable 09/13/21 05:22 RBC Morphology Not Reportable 09/13/21 05:22 Dimorphic RBCs Not Reportable 09/13/21 05:22 Polychromasia Not Reportable 09/13/21 05:22 Hypochromasia Not Reportable 09/13/21 05:22 Poikilocytosis Few 09/13/21 05:22 Anisocytosis Few 09/13/21 05:22 Microcytosis Not Reportable 09/13/21 05:22 Macrocytosis Not Reportable 09/13/21 05:22 Spherocytes Not Reportable 09/13/21 05:22 Pappenheimer Bodies Not Reportable 09/13/21 05:22 Sickle Cells Not Reportable 09/13/21 05:22 Target Cells Not Reportable 09/13/21 05:22 Tear Drop Cells Rare 09/13/21 05:22 Ovalocytes Rare 09/13/21 05:22 Helmet Cells Rare 09/13/21 05:22 [place] Bodies Not Reportable 09/13/21 05:22 [place] Rings Not Reportable 09/13/21 05:22 [place] Cells Not Reportable 09/13/21 05:22 Bite Cells Not Reportable 09/13/21 05:22 Crenated Cell Not Reportable 09/13/21 05:22 Elliptocytes Not Reportable 09/13/21 05:22 Acanthocytes (Spur) Not Reportable 09/13/21 05:22 Rouleaux Not Reportable 09/13/21 05:22 Hemoglobin C Crystals Not Reportable 09/13/21 05:22 Schistocytes Not Reportable 09/13/21 05:22 Malaria parasites Not Reportable 09/13/21 05:22 Peter Bodies Not Reportable 09/13/21 05:22 Hem Pathologist Commnt No 09/13/21 05:22 Sodium 137 mmol/L (137-145) 09/13/21 05:22 Potassium 3.4 mmol/L (3.6-5.0) L 09/13/21 05:22 Chloride 101.6 mmol/L (98-107) 09/13/21 05:22 Carbon Dioxide 23 mmol/L (22-30) 09/13/21 05:22 Anion Gap 16 mmol/L 09/13/21 05:22 BUN 8 mg/dL (7-17) 09/13/21 05:22 Creatinine 0.6 mg/dL (0.6-1.2) 09/13/21 05:22 Estimated GFR > 60 ml/min 09/13/21 05:22 BUN/Creatinine Ratio 13 % 09/13/21 05:22 Glucose 114 mg/dL (65-100) H 09/13/21 05:22 POC Glucose 182 mg/dL (70-105) H 09/10/21 18:23 Calcium 9.2 mg/dL (8.4-10.2) 09/13/21 05:22 Phosphorus 3.00 mg/dL (2.5-4.5) 09/11/21 04:40 Magnesium 2.20 mg/dL (1.7-2.3) 09/11/21 04:40 Total Bilirubin 0.80 mg/dL (0.1-1.2) 09/12/21 05:11 AST 73 units/L (5-40) H 09/12/21 05:11 ALT 77 units/L (7-56) H 09/12/21 05:11 Alkaline Phosphatase 92 units/L (35-129) 09/12/21 05:11 Total Creatine Kinase 833 units/L (30-135) H 09/13/21 05:22 Total Protein 6.3 g/dL (6.3-8.2) 09/12/21 05:11 Albumin 3.5 g/dL (3.9-5) L 09/12/21 05:11 Albumin/Globulin Ratio 1.3 % 09/12/21 05:11 HCG, Quant < 2 mIU/mL (0-4) 09/08/21 19:35 Urine Color Yellow (Yellow) 09/14/21 Unknown Urine Turbidity Clear (Clear) 09/14/21 Unknown Urine pH 7.5 (5.0-7.0) H 09/14/21 Unknown Ur Specific [place] 1.005 (1.003-1.030) 09/14/21 Unknown Urine Protein <15 mg/dl mg/dL (Negative) 09/14/21 Unknown Urine Glucose (UA) Negative mg/dL (Negative) 09/14/21 Unknown Urine Ketones Negative mg/dL (Negative) 09/14/21 Unknown Urine Blood Moderate (Negative) A 09/14/21 Unknown Urine Nitrite Negative (Negative) 09/14/21 Unknown Ur Reducing Substances Not Reportable 09/13/21 17:43 Urine Bilirubin Moderate (Negative) 09/14/21 Unknown Urine Ictotest Positive (Negative) 09/14/21 Unknown Urine Urobilinogen < 2.0 mg/dL (<2.0) 09/14/21 Unknown Ur Leukocyte Esterase Moderate (Negative) 09/14/21 Unknown Urine WBC (Auto) 14.0 /HPF (0.0-6.0) H 09/14/21 Unknown Urine RBC (Auto) 32.0 /HPF (0.0-6.0) 09/14/21 Unknown U Epithel Cells (Auto) 2.0 /HPF (0-13.0) 09/14/21 Unknown Hyaline Casts 6 /LPF 09/14/21 Unknown Urine Mucus Few /HPF 09/14/21 Unknown Urine Yeast (Budding) 3+ /HPF 09/14/21 Unknown Salicylates < 0.3 mg/dL (2.8-20.0) L 09/08/21 19:35 Urine Opiates Screen Negative 09/13/21 17:43 Urine Methadone Screen Negative 09/13/21 17:43 Acetaminophen 5.0 ug/mL (10.0-30.0) L 09/08/21 19:35 Ur Barbiturates Screen Negative 09/13/21 17:43 Ur Phencyclidine Scrn Negative 09/13/21 17:43 Ur Amphetamines Screen Negative 09/13/21 17:43 U Benzodiazepines Scrn Negative 09/13/21 17:43 Urine Cocaine Screen Negative 09/13/21 17:43 U Marijuana (THC) Screen Negative 09/13/21 17:43 Drugs of Abuse Note Disclamer 09/13/21 17:43 Plasma/Serum Alcohol < 0.01 % (0-0.07) 09/08/21 19:35 SARS-CoV-2 (PCR) Negative (Negative) 09/13/21 15:10 Hepatitis A IgM Ab Non-reactive (NonReactive) 09/10/21 05:16 Hep Bs Antigen Non-reactive (Negative) 09/10/21 05:16 Hep B Core IgM Ab Non-reactive (NonReactive) 09/10/21 05:16 Hepatitis C Antibody Non-reactive (NonReactive) 09/10/21 05:16 Microbiology: Microbiology 09/14/21 Unknown Urine,Clean Catch Urine Culture - Preliminary [place]rie Albicans Pinedo/IV: Voiding Method Toilet Active Medications - Current Medications Current Medications: Generic Name Dose Route Start Last Admin Trade Name Freq PRN Reason Stop Dose Admin Acetaminophen 650 mg 09/08/21 22:08 Acetaminophen 325 Mg Tab PO Q4H PRN Pain MILD(1-3)/Fever >100.5/JERONIMO Albuterol 2.5 mg 09/08/21 22:08 Albuterol 2.5 Mg/3 Ml Nebu IH Q3HRT PRN Shortness Of Breath Aripiprazole 5 mg 09/09/21 13:00 09/17/21 09:19 Aripiprazole 5 Mg Tab PO 5 mg QDAY SAMANTHA Administration Citalopram Hydrobromide 20 mg 09/13/21 12:00 09/17/21 09:20 Citalopram 20 Mg Tab PO 20 mg QDAY SAMANTHA Administration Doxepin HCl 25 mg 09/10/21 22:00 09/16/21 22:07 Doxepin 25 Mg Cap PO 25 mg QHS SAMANTHA Administration Enoxaparin Sodium 40 mg 09/09/21 10:00 09/17/21 09:20 Enoxaparin 40 Mg/0.4 Ml Inj SUB-Q 40 mg DAILY SAMANTHA Administration Protocol Famotidine 20 mg 09/10/21 10:00 09/17/21 09:20 Famotidine 20 Mg Tab PO 20 mg BID SAMANTHA Administration Gabapentin 300 mg 09/10/21 14:00 09/17/21 05:38 Gabapentin 300 Mg Cap PO 300 mg Q8HR SAMANTHA Administration Hydroxyzine Pamoate 50 mg 09/10/21 11:00 09/17/21 09:20 Hydroxyzine Pamoate 50 Mg Cap PO 50 mg BID SAMANTHA Administration Ceftriaxone Sodium 1 gm in 50 mls @ 100 mls/hr 09/15/21 10:00 09/17/21 09:20 Rocephin/Ns 1 Gm/50 Ml IV 100 mls/hr Q24H SAMANTHA Administration Protocol Levetiracetam 750 mg 09/13/21 10:00 09/17/21 09:20 Levetiracetam 500 Mg Tab PO 750 mg BID SAMANTHA Administration Lorazepam 2 mg 09/10/21 18:27 09/11/21 12:50 Lorazepam 2 Mg/Ml Vial IV 2 mg Q4H PRN Administration Seizures Mirtazapine 7.5 mg 09/13/21 22:00 09/16/21 22:08 Mirtazapine 15 Mg Tab PO 7.5 mg QHS SAMANTHA Administration Morphine Sulfate 2 mg 09/08/21 22:08 Morphine 2 Mg/1 Ml Inj IV Q4H PRN Pain, Moderate (4-6) Morphine Sulfate 4 mg 09/08/21 22:08 Morphine 4 Mg/1 Ml Inj IV Q4H PRN Pain , Severe (7-10) Naloxone HCl 0.1 mg 09/08/21 18:20 Naloxone 0.4 Mg/1 Ml Inj IV Q2MIN PRN Res Rate </= 8 or 02 SAT < 92% Ondansetron HCl 4 mg 09/08/21 22:08 09/10/21 17:35 Ondansetron 4 Mg/2 Ml Inj IV 4 mg Q8H PRN Administration Nausea And Vomiting Sodium Chloride 10 ml 09/09/21 10:00 09/17/21 09:20 Sodium Chloride 0.9% 10 Ml Flush Syringe IV 10 ml BID SAMANTHA Administration Sodium Chloride 10 ml 09/08/21 22:08 Sodium Chloride 0.9% 10 Ml Flush Syringe IV PRN PRN LINE FLUSH Nutrition/Malnutrition Assess - Dietary Evaluation Nutrition/Malnutrition Findings: Nutrition Notes Start: 09/15/21 12:06 Freq: Status: Active Protocol: Document 09/15/21 12:06 BLESSING (Rec: 09/15/21 12:11 BLESSING [id number]) Nutrition Notes Need for Assessment generated from: LOS Initial or Follow up Assessment Other Pertinent Diagnosis Opioid overdose, MDD, seizures Current Diet GI soft Labs/Tests No current available Pertinent Medications Remeron Height 5 ft 7 in Weight 79.3 kg [place] Body Weight (kg) 61.36 BMI 27.3 Weight Status Overweight Subjective/Other Information Pt screened for LOS. She has consumed 46% of meals since admission. Percent of energy/protein needs met: 47% energy 60% pro Burn Absent Trauma Absent Current % PO Poor (25-49%) Minimum of two criteria No #1 Nutrition Diagnosis Inadequate protein-energy intake Etiology opioid overdose As Evidenced by Signs and Symptoms PO intake meeting <75% energy and pro needs Is patient on ventilator? No Is Patient Ambulatory and/or Out of Bed Yes REE-([facility]-ambulatory/OOB) [ 1963.819 [id number]] Calculation Used for Recommendations [facility] Additional Notes Pro needs 0.8-1g/k-79g/ day Fluid needs 1ml/kcal Nutrition Intervention Change Diet Order: Continue current diet order Goal #1 PO intake to meet at least 75% energy and pro needs Anticipated Discharge Needs: None identified at this time Follow-Up By: 09/20/21 Additional Comments F/U: intakes, need for ONS, wt
[2021-09-17] MEDS: MIRTAZAPINE 15 MG TAB PO SCH (21:37)
[2021-09-17] MEDS: DOXEPIN 25 MG CAP PO SCH (21:40)
[2021-09-18] MEDS: GABAPENTIN 300 MG CAP PO SCH ×3 (05:43→22:31)
[2021-09-18 06:41] LABS: Basophils # (Auto) 0.1 K/mm3 (0.0-0.1); Basophils % (Auto) 1.2 % (0.0-1.8); Eosinophils # (Auto) 0.4 K/mm3 (0.0-0.4); Hematocrit 44.8 % (30.3-42.9); Lymphocytes # (Auto) 1.6 K/mm3 (1.2-5.4); Lymphocytes % (Auto) 13.9 % (13.4-35.0); Mean Corpuscular HGB Conc 34 % (30-34); Mean Corpuscular Volume 88 fl (79-97); Monocytes # (Auto) 0.6 K/mm3 (0.0-0.8); Monocytes % (Auto) 5.4 % (0.0-7.3); Platelet Count 275 K/mm3 (140-440); Red Cell Distribution Width 13.7 % (13.2-15.2)
--- NOTE | 2021-09-18 08:24 | Progress Note ---
Assessment and Plan Assessment and plan: #Opioid overdose #Major depressive disorder -Continue Celexa, doxepin, gabapentin, Abilify, Vistaril. Psychiatry following. -Recommendations for acute psychiatric inpatient treatment #Polysubstance dependence; Counseling done patient strongly advised to quit substance abuse Verbalized understanding Advised to seek detox and rehabilitation #1013 status According to patient's mother and chart review, the patient has been snorting heroin for 10 years. Patient was found unresponsive at home by family and EMS was called. Patient will begin to undergo opioid withdrawal while being hospitalized. Continue supportive management. Psychiatry consulted; appreciate recs. Patient placed under 1013. -Patient engages in the following substances: Heroin -Counseled patient about the importance of cessation of substance abuse. Offered resources to help with quitting. Patient expresses understanding. -Time: +15 mins #Seizures - Ativan as needed for breakthrough seizure. Continue p.o. keppra 750mg BID. - Neurology consulted; pending recs #Rhabdomyolysis-resolved Creatine kinase 5143-->7274-->4537--> 2341-->833 Likely secondary to opioid overdose and patient being found unresponsive at home. Encouraging p.o. intake. Continue to trend creatine kinase. #Urinary tract infection Patient is receiving Rocephin day 4 today Follow-up urine culture Urinalysis also declines Cherie albicans Discontinue Rocephin, WBC is trending down # leukocytosis WBC improved to 14K --11.8 Possibly secondary to stress response/tract infection continue Rocephin for UTI, urine analysis positive for fungus Cherie albicans Continue Rocephin for UTI, Blood cultures no growth. -Chest x-ray negative -Patient was denied acute inpatient psychiatric admission due to leukocytosis. Continue to follow #Elevated transaminasesresolved Possibly secondary to substance abuse. Unremarkable acute hepatitis panel. No current intervention necessary at this time for elevated transaminases. Continue to monitor #Metabolic acidosisresolved #Hypokalemia Resolved #DVT prophylaxis; Subcu Lovenox DC planning per case management Closely monitor the patient and adjust management as needed Plan of care reviewed with the patient and her nurse as well as the case management Possible discharge in 1 to 2 days if stable Follow morning labs and psych recommendations. Possible discharge in 1 to 2 days if stable History Interval history: I have seen and examined the patient at the bedside this morning Patient's chart and medications reviewed, Patient is in 1013 status admitted with drug overdose Psych evaluated the patient placed on 1013 status, planning inpatient psych transfer for further evaluation management Patient is alert and awake responding appropriately Not in acute distress Hospitalist Physical - Constitutional Vitals: Temp Pulse Resp BP Pulse Ox 98.5 F 97 H 16 104/69 98 09/18/21 05:49 09/18/21 05:49 09/18/21 05:49 09/18/21 05:49 09/18/21 08:17 General appearance: Present: no acute distress, well-nourished - EENT Eyes: Present: PERRL, EOM intact - Neck Neck: Present: supple, normal ROM - Respiratory Respiratory effort: normal Respiratory: bilateral: diminished, negative: rales, rhonchi, wheezing - Cardiovascular Rhythm: regular Heart Sounds: Present: S1 & S2 - Extremities Extremities: no ischemia, No edema - Abdominal General gastrointestinal: soft, non-tender, non-distended, normal bowel sounds - Integumentary Integumentary: Present: clear, warm - Psychiatric Psychiatric: appropriate mood/affect, cooperative - Neurologic Neurologic: CNII-XII intact, moves all extremities Results - Labs CBC & Chem 7: 09/18/21 06:10 09/13/21 05:22 Labs: Laboratory Last Values WBC 11.8 K/mm3 (4.5-11.0) H 09/18/21 06:10 RBC 5.10 M/mm3 (3.65-5.03) H 09/18/21 06:10 Hgb 15.0 gm/dl (10.1-14.3) H 09/18/21 06:10 Hct 44.8 % (30.3-42.9) H 09/18/21 06:10 MCV 88 fl (79-97) 09/18/21 06:10 MCH 29 pg (28-32) 09/18/21 06:10 MCHC 34 % (30-34) 09/18/21 06:10 RDW 13.7 % (13.2-15.2) 09/18/21 06:10 Plt Count 275 K/mm3 (140-440) 09/18/21 06:10 Lymph % (Auto) 13.9 % (13.4-35.0) 09/18/21 06:10 [place] % (Auto) 5.4 % (0.0-7.3) 09/18/21 06:10 Eos % (Auto) 3.0 % (0.0-4.3) 09/18/21 06:10 Baso % (Auto) 1.2 % (0.0-1.8) 09/18/21 06:10 Lymph # (Auto) 1.6 K/mm3 (1.2-5.4) 09/18/21 06:10 [place] # (Auto) 0.6 K/mm3 (0.0-0.8) 09/18/21 06:10 Eos # (Auto) 0.4 K/mm3 (0.0-0.4) 09/18/21 06:10 Baso # (Auto) 0.1 K/mm3 (0.0-0.1) 09/18/21 06:10 Add Manual Diff Complete 09/13/21 05:22 Total Counted 100 09/13/21 05:22 Seg Neutrophils % 76.5 % (40.0-70.0) H 09/18/21 06:10 Seg Neuts % (Manual) 76.0 % (40.0-70.0) H 09/13/21 05:22 Band Neutrophils % 0 % 09/13/21 05:22 Lymphocytes % (Manual) 10.0 % (13.4-35.0) L 09/13/21 05:22 Reactive Lymphs % (Man) 0 % 09/13/21 05:22 Monocytes % (Manual) 6.0 % (0.0-7.3) 09/13/21 05:22 Eosinophils % (Manual) 4.0 % (0.0-4.3) 09/13/21 05:22 Basophils % (Manual) 1.0 % (0.0-1.8) 09/13/21 05:22 Metamyelocytes % 3.0 % 09/13/21 05:22 Myelocytes % 0 % 09/13/21 05:22 Promyelocytes % 0 % 09/13/21 05:22 Blast Cells % 0 % 09/13/21 05:22 Nucleated RBC % Not Reportable 09/13/21 05:22 Seg Neutrophils # 9.0 K/mm3 (1.8-7.7) H 09/18/21 06:10 Seg Neutrophils # Man 10.4 K/mm3 (1.8-7.7) H 09/13/21 05:22 Band Neutrophils # 0.0 K/mm3 09/13/21 05:22 Lymphocytes # (Manual) 1.4 K/mm3 (1.2-5.4) 09/13/21 05:22 Abs React Lymphs (Man) 0.0 K/mm3 09/13/21 05:22 Monocytes # (Manual) 0.8 K/mm3 (0.0-0.8) 09/13/21 05:22 Eosinophils # (Manual) 0.5 K/mm3 (0.0-0.4) H 09/13/21 05:22 Basophils # (Manual) 0.1 K/mm3 (0.0-0.1) 09/13/21 05:22 Metamyelocytes # 0.4 K/mm3 09/13/21 05:22 Myelocytes # 0.0 K/mm3 09/13/21 05:22 Promyelocytes # 0.0 K/mm3 09/13/21 05:22 Blast Cells # 0.0 K/mm3 09/13/21 05:22 WBC Morphology Not Reportable 09/13/21 05:22 Hypersegmented Neuts Not Reportable 09/13/21 05:22 Hyposegmented Neuts Not Reportable 09/13/21 05:22 Hypogranular Neuts Not Reportable 09/13/21 05:22 Smudge Cells Not Reportable 09/13/21 05:22 Toxic Granulation Not Reportable 09/13/21 05:22 Toxic Vacuolation Not Reportable 09/13/21 05:22 Dohle Bodies Not Reportable 09/13/21 05:22 Pelger-Huet Anomaly Not Reportable 09/13/21 05:22 Jeannine Rods Not Reportable 09/13/21 05:22 Platelet Estimate Consistent w auto 09/13/21 05:22 Clumped Platelets Not Reportable 09/13/21 05:22 Plt Clumps, EDTA Not Reportable 09/13/21 05:22 Large Platelets Rare 09/13/21 05:22 Giant Platelets Not Reportable 09/13/21 05:22 Platelet Satelliting Not Reportable 09/13/21 05:22 Plt Morphology Comment Not Reportable 09/13/21 05:22 RBC Morphology Not Reportable 09/13/21 05:22 Dimorphic RBCs Not Reportable 09/13/21 05:22 Polychromasia Not Reportable 09/13/21 05:22 Hypochromasia Not Reportable 09/13/21 05:22 Poikilocytosis Few 09/13/21 05:22 Anisocytosis Few 09/13/21 05:22 Microcytosis Not Reportable 09/13/21 05:22 Macrocytosis Not Reportable 09/13/21 05:22 Spherocytes Not Reportable 09/13/21 05:22 Pappenheimer Bodies Not Reportable 09/13/21 05:22 Sickle Cells Not Reportable 09/13/21 05:22 Target Cells Not Reportable 09/13/21 05:22 Tear Drop Cells Rare 09/13/21 05:22 Ovalocytes Rare 09/13/21 05:22 Helmet Cells Rare 09/13/21 05:22 [place] Bodies Not Reportable 09/13/21 05:22 Colbert Rings Not Reportable 09/13/21 05:22 [place] Cells Not Reportable 09/13/21 05:22 Bite Cells Not Reportable 09/13/21 05:22 Crenated Cell Not Reportable 09/13/21 05:22 Elliptocytes Not Reportable 09/13/21 05:22 Acanthocytes (Spur) Not Reportable 09/13/21 05:22 Rouleaux Not Reportable 09/13/21 05:22 Hemoglobin C Crystals Not Reportable 09/13/21 05:22 Schistocytes Not Reportable 09/13/21 05:22 Malaria parasites Not Reportable 09/13/21 05:22 Peter Bodies Not Reportable 09/13/21 05:22 Hem Pathologist Commnt No 09/13/21 05:22 Sodium 137 mmol/L (137-145) 09/13/21 05:22 Potassium 3.4 mmol/L (3.6-5.0) L 09/13/21 05:22 Chloride 101.6 mmol/L (98-107) 09/13/21 05:22 Carbon Dioxide 23 mmol/L (22-30) 09/13/21 05:22 Anion Gap 16 mmol/L 09/13/21 05:22 BUN 8 mg/dL (7-17) 09/13/21 05:22 Creatinine 0.6 mg/dL (0.6-1.2) 09/13/21 05:22 Estimated GFR > 60 ml/min 09/13/21 05:22 BUN/Creatinine Ratio 13 % 09/13/21 05:22 Glucose 114 mg/dL (65-100) H 09/13/21 05:22 POC Glucose 182 mg/dL (70-105) H 09/10/21 18:23 Calcium 9.2 mg/dL (8.4-10.2) 09/13/21 05:22 Phosphorus 3.00 mg/dL (2.5-4.5) 09/11/21 04:40 Magnesium 2.20 mg/dL (1.7-2.3) 09/11/21 04:40 Total Bilirubin 0.80 mg/dL (0.1-1.2) 09/12/21 05:11 AST 73 units/L (5-40) H 09/12/21 05:11 ALT 77 units/L (7-56) H 09/12/21 05:11 Alkaline Phosphatase 92 units/L (35-129) 09/12/21 05:11 Total Creatine Kinase 833 units/L (30-135) H 09/13/21 05:22 Total Protein 6.3 g/dL (6.3-8.2) 09/12/21 05:11 Albumin 3.5 g/dL (3.9-5) L 09/12/21 05:11 Albumin/Globulin Ratio 1.3 % 09/12/21 05:11 HCG, Quant < 2 mIU/mL (0-4) 09/08/21 19:35 Urine Color Yellow (Yellow) 09/14/21 Unknown Urine Turbidity Clear (Clear) 09/14/21 Unknown Urine pH 7.5 (5.0-7.0) H 09/14/21 Unknown Ur Specific [employer] 1.005 (1.003-1.030) 09/14/21 Unknown Urine Protein <15 mg/dl mg/dL (Negative) 09/14/21 Unknown Urine Glucose (UA) Negative mg/dL (Negative) 09/14/21 Unknown Urine Ketones Negative mg/dL (Negative) 09/14/21 Unknown Urine Blood Moderate (Negative) A 09/14/21 Unknown Urine Nitrite Negative (Negative) 09/14/21 Unknown Ur Reducing Substances Not Reportable 09/13/21 17:43 Urine Bilirubin Moderate (Negative) 09/14/21 Unknown Urine Ictotest Positive (Negative) 09/14/21 Unknown Urine Urobilinogen < 2.0 mg/dL (<2.0) 09/14/21 Unknown Ur Leukocyte Esterase Moderate (Negative) 09/14/21 Unknown Urine WBC (Auto) 14.0 /HPF (0.0-6.0) H 09/14/21 Unknown Urine RBC (Auto) 32.0 /HPF (0.0-6.0) 09/14/21 Unknown U Epithel Cells (Auto) 2.0 /HPF (0-13.0) 09/14/21 Unknown Hyaline Casts 6 /LPF 09/14/21 Unknown Urine Mucus Few /HPF 09/14/21 Unknown Urine Yeast (Budding) 3+ /HPF 09/14/21 Unknown Salicylates < 0.3 mg/dL (2.8-20.0) L 09/08/21 19:35 Urine Opiates Screen Negative 09/13/21 17:43 Urine Methadone Screen Negative 09/13/21 17:43 Acetaminophen 5.0 ug/mL (10.0-30.0) L 09/08/21 19:35 Ur Barbiturates Screen Negative 09/13/21 17:43 Ur Phencyclidine Scrn Negative 09/13/21 17:43 Ur Amphetamines Screen Negative 09/13/21 17:43 U Benzodiazepines Scrn Negative 09/13/21 17:43 Urine Cocaine Screen Negative 09/13/21 17:43 U Marijuana (THC) Screen Negative 09/13/21 17:43 Drugs of Abuse Note Disclamer 09/13/21 17:43 Plasma/Serum Alcohol < 0.01 % (0-0.07) 09/08/21 19:35 SARS-CoV-2 (PCR) Negative (Negative) 09/13/21 15:10 Hepatitis A IgM Ab Non-reactive (NonReactive) 09/10/21 05:16 Hep Bs Antigen Non-reactive (Negative) 09/10/21 05:16 Hep B Core IgM Ab Non-reactive (NonReactive) 09/10/21 05:16 Hepatitis C Antibody Non-reactive (NonReactive) 09/10/21 05:16 [place]/IV: Voiding Method Toilet Active Medications - Current Medications Current Medications: Generic Name Dose Route Start Last Admin Trade Name Freq PRN Reason Stop Dose Admin Acetaminophen 650 mg 09/08/21 22:08 Acetaminophen 325 Mg Tab PO Q4H PRN Pain MILD(1-3)/Fever >100.5/JERONIMO Albuterol 2.5 mg 09/08/21 22:08 Albuterol 2.5 Mg/3 Ml Nebu IH Q3HRT PRN Shortness Of Breath Aripiprazole 5 mg 09/09/21 13:00 09/17/21 09:19 Aripiprazole 5 Mg Tab PO 5 mg QDAY SAMANTHA Administration Citalopram Hydrobromide 20 mg 09/13/21 12:00 09/17/21 09:20 Citalopram 20 Mg Tab PO 20 mg QDAY SAMANTHA Administration Doxepin HCl 25 mg 09/10/21 22:00 09/17/21 21:40 Doxepin 25 Mg Cap PO 25 mg QHS SAMANTHA Administration Enoxaparin Sodium 40 mg 09/09/21 10:00 09/17/21 09:20 Enoxaparin 40 Mg/0.4 Ml Inj SUB-Q 40 mg DAILY SAMANTHA Administration Protocol Famotidine 20 mg 09/10/21 10:00 09/17/21 21:37 Famotidine 20 Mg Tab PO 20 mg BID SAMANTHA Administration Gabapentin 300 mg 09/10/21 14:00 09/18/21 05:43 Gabapentin 300 Mg Cap PO 300 mg Q8HR SAMANTHA Administration Hydroxyzine Pamoate 50 mg 09/10/21 11:00 09/17/21 21:37 Hydroxyzine Pamoate 50 Mg Cap PO 50 mg BID SAMANTHA Administration Ceftriaxone Sodium 1 gm in 50 mls @ 100 mls/hr 09/15/21 10:00 09/17/21 09:20 Rocephin/Ns 1 Gm/50 Ml IV 100 mls/hr Q24H SAMANTHA Administration Protocol Levetiracetam 750 mg 09/13/21 10:00 09/17/21 21:39 Levetiracetam 500 Mg Tab PO 750 mg BID SAMANTHA Administration Lorazepam 2 mg 09/10/21 18:27 09/11/21 12:50 Lorazepam 2 Mg/Ml Vial IV 2 mg Q4H PRN Administration Seizures Mirtazapine 7.5 mg 09/13/21 22:00 09/17/21 21:37 Mirtazapine 15 Mg Tab PO 7.5 mg QHS SAMANTHA Administration Morphine Sulfate 2 mg 09/08/21 22:08 Morphine 2 Mg/1 Ml Inj IV Q4H PRN Pain, Moderate (4-6) Morphine Sulfate 4 mg 09/08/21 22:08 Morphine 4 Mg/1 Ml Inj IV Q4H PRN Pain , Severe (7-10) Naloxone HCl 0.1 mg 09/08/21 18:20 Naloxone 0.4 Mg/1 Ml Inj IV Q2MIN PRN Res Rate </= 8 or 02 SAT < 92% Ondansetron HCl 4 mg 09/08/21 22:08 09/10/21 17:35 Ondansetron 4 Mg/2 Ml Inj IV 4 mg Q8H PRN Administration Nausea And Vomiting Sodium Chloride 10 ml 09/09/21 10:00 09/17/21 21:39 Sodium Chloride 0.9% 10 Ml Flush Syringe IV 10 ml BID SAMANTHA Administration Sodium Chloride 10 ml 09/08/21 22:08 Sodium Chloride 0.9% 10 Ml Flush Syringe IV PRN PRN LINE FLUSH Nutrition/Malnutrition Assess - Dietary Evaluation Nutrition/Malnutrition Findings: Nutrition Notes Start: 09/15/21 12:06 Freq: Status: Active Protocol: Document 09/15/21 12:06 BLESSING (Rec: 09/15/21 12:11 [facility] [id number]) Nutrition Notes Need for Assessment generated from: LOS Initial or Follow up Assessment Other Pertinent Diagnosis Opioid overdose, MDD, seizures Current Diet GI soft Labs/Tests No current available Pertinent Medications Remeron Height 5 ft 7 in Weight 79.3 kg [place] Body Weight (kg) 61.36 BMI 27.3 Weight Status Overweight Subjective/Other Information Pt screened for LOS. She has consumed 46% of meals since admission. Percent of energy/protein needs met: 47% energy 60% pro Burn Absent Trauma Absent Current % PO Poor (25-49%) Minimum of two criteria No #1 Nutrition Diagnosis Inadequate protein-energy intake Etiology opioid overdose As Evidenced by Signs and Symptoms PO intake meeting <75% energy and pro needs Is patient on ventilator? No Is Patient Ambulatory and/or Out of Bed Yes REE-([facility]-ambulatory/OOB) [ 1963.819 [id number]] Calculation Used for Recommendations [facility] Additional Notes Pro needs 0.8-1g/k-79g/ day Fluid needs 1ml/kcal Nutrition Intervention Change Diet Order: Continue current diet order Goal #1 PO intake to meet at least 75% energy and pro needs Anticipated Discharge Needs: None identified at this time Follow-Up By: 09/20/21 Additional Comments F/U: intakes, need for ONS, wt
[2021-09-18] MEDS: cefTRIAXone/NS 1 GM/50 ML 1 GM/50 ML BAG IV SCH (10:10)
[2021-09-18] MEDS: ENOXAPARIN 40 MG/0.4 ML INJ SUB-Q SCH (10:11)
[2021-09-18] MEDS: FAMOTIDINE 20 MG TAB PO SCH ×2 (10:11→22:31)
[2021-09-18] MEDS: ARIPiprazole 5 MG TAB PO SCH (10:11)
[2021-09-18] MEDS: levETIRAcetam 500 MG TAB PO SCH ×2 (10:11→22:31)
[2021-09-18] MEDS: CITALOPRAM 20 MG TAB PO SCH (10:11)
--- NOTE | 2021-09-18 13:36 | Progress Note ---
Subjective - Reason for Consult Reason for consult: MHE - Chief Complaint Chief complaint: Date of service: 09/18/21 patient seen today. No changes at this time. Date of service: 09/17/21 Patient seen today on the floor. Patient observed to nodding and shaking head when asked a question. Patient asked to verbalize and she agreed to it. Patient denies SI/HI/AVH, but admits to having depression of a 7/10. Patient states she is sleeping and eating well. DATE SEEN: 09/16/21 Patient seen today. Patient mostly nods to questions asked. Patient did answer that on a scale of 1/10 her depression is a 6. Per nursing staff patient takes off all her clothes and anything that she is hooked on to whenever she needs to go the bathroom and lays back down without her clothes. Patient denies having any SI/HI/AVH at this time. Patient waiting on inpatient placement. 09/15/21 Patient seen today in her room. Patient States that she is "doing good" Patient states that she recently lost her boyfriend of 15 years to drug overdose, and states that what triggered her episode. Patient has a hx of using heroine and states she uses it 6-7x daily. Admits last usage was just before she was brought in. Patient currently denies any SI/HI/AVH. Patient is awaiting placement at this time. The patient was seen today. She continues to be withdrawn, and quiet with flat affect. She doesn't really talk, but answers questions with one words or by nodding or shaking her head. The patient endorses hopelessness, and being depressed. She does deny SI/HI. I ask her what was going through her mind at present, she just stares at me and shakes her head. Will continue recommendation for inpatient treatment. The patient expresses hopelessness, and has passive suicidal thoughts. If discharged she runs the risk of deterioration of her mental health. The patient will be referred to a psychiatric facility once medically clear. ROS: Constitutional: Negative for weight loss ENT: Negative for stridor Respiratory: Negative for cough or hemoptysis All other systems reviewed and are negative MENTAL STATUS General Appearance and Behavior: age appropriate, evasive, guarded, poor eye contact, withdrawn Psychomotor Behavior: within normal limits Mood: depressed Affect and affective range: flat Thought Process: thought blocking Thought Content: hopelessness Speech: Normal volume and Regular rate and rhythm Suicidal Ideation: passive Homicidal Ideation: Denies HI Hallucinations: Denies Impulse Control: impaired Insight and Judgment: poor Memory: poor Attention: poor Orientation: alert Assessment Opiate Overdose Major Depressive Disorder Treatment Plan 1013 Celexa 20mg po daily Remeron 7.5mg po to induce appetite. Doxepin 25mg po qhs Gabapentin 300mg po q8h Abilify 5mg po daily Vistaril 50mg po BID Medical: per primary Sitter: defer to primary Disposition: Recommend acute psychiatric inpatient treatment Will follow. Thanks. Case staffed by Dr. Urena Mental Status Exam - Vital signs Last Vital Signs Temp 98.9 F 09/18/21 11:24 Pulse 120 H 09/18/21 11:24 Resp 18 09/18/21 11:24 BP 128/95 09/18/21 11:24 Pulse Ox 96 09/18/21 11:24
[2021-09-18] MEDS: MIRTAZAPINE 15 MG TAB PO SCH (22:30)
[2021-09-18] MEDS: DOXEPIN 25 MG CAP PO SCH (22:37)
[2021-09-19] MEDS: GABAPENTIN 300 MG CAP PO SCH ×3 (05:53→23:33)
[2021-09-19 06:34] LABS: Basophils # (Auto) 0.2 K/mm3 (0.0-0.1); Basophils % (Auto) 1.2 % (0.0-1.8); Eosinophils # (Auto) 0.4 K/mm3 (0.0-0.4); Eosinophils % (Auto) 3.1 % (0.0-4.3); Hematocrit 44.9 % (30.3-42.9); Hemoglobin 14.9 gm/dl (10.1-14.3); Lymphocytes # (Auto) 1.8 K/mm3 (1.2-5.4); Lymphocytes % (Auto) 14.6 % (13.4-35.0); Mean Corpuscular HGB Conc 33 % (30-34); Mean Corpuscular Volume 89 fl (79-97); Monocytes # (Auto) 0.6 K/mm3 (0.0-0.8); Monocytes % (Auto) 5.3 % (0.0-7.3); Platelet Count 295 K/mm3 (140-440); Red Blood Count 5.07 M/mm3 (3.65-5.03); Red Cell Distribution Width 13.8 % (13.2-15.2)
[2021-09-19 07:16] LABS: Blood Urea Nitrogen 9 mg/dL (7-17); Calcium 9.8 mg/dL (8.4-10.2); Hemolysis Index 4
[2021-09-19 07:24] LABS: BUN/Creatinine Ratio 15
--- NOTE | 2021-09-19 08:38 | Progress Note ---
Assessment and Plan Assessment and plan: #Opioid overdose #Major depressive disorder -Continue Celexa, doxepin, gabapentin, Abilify, Vistaril. Psychiatry following. -Recommendations for acute psychiatric inpatient treatment #Polysubstance dependence; Counseling done patient strongly advised to quit substance abuse Verbalized understanding Advised to seek detox and rehabilitation #1013 status According to patient's mother and chart review, the patient has been snorting heroin for 10 years. Patient was found unresponsive at home by family and EMS was called. Patient will begin to undergo opioid withdrawal while being hospitalized. Continue supportive management. Psychiatry consulted; appreciate recs. Patient placed under 1013. -Patient engages in the following substances: Heroin -Counseled patient about the importance of cessation of substance abuse. Offered resources to help with quitting. Patient expresses understanding. -Time: +15 mins #Seizures - Ativan as needed for breakthrough seizure. Continue p.o. keppra 750mg BID. - Neurology consulted; pending recs #Rhabdomyolysis-resolved Creatine kinase 5143-->7274-->4537--> 2341-->833 Likely secondary to opioid overdose and patient being found unresponsive at home. Encouraging p.o. intake. Continue to trend creatine kinase. #Urinary tract infection Patient is receiving Rocephin day 4 today Follow-up urine culture Urinalysis also declines Cherie albicans Discontinue Rocephin, WBC is trending down # leukocytosis WBC improved to 14K --11.8 Possibly secondary to stress response/tract infection continue Rocephin for UTI, urine analysis positive for fungus Cherie albicans Continue Rocephin for UTI, Blood cultures no growth. -Chest x-ray negative -Patient was denied acute inpatient psychiatric admission due to leukocytosis. Continue to follow #Elevated transaminasesresolved Possibly secondary to substance abuse. Unremarkable acute hepatitis panel. No current intervention necessary at this time for elevated transaminases. Continue to monitor #Metabolic acidosisresolved #Hypokalemia Resolved #DVT prophylaxis; Subcu Lovenox DC planning per case management Closely monitor the patient and adjust management as needed Plan of care reviewed with the patient and her nurse as well as the case management Possible discharge in 1 to 2 days if stable Follow morning labs and psych recommendations. 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 Patient is 1013 status recommended by psych Vital signs noted Hospitalist Physical - Constitutional Vitals: Temp Pulse Resp BP Pulse Ox 97.2 F L 104 H 16 120/66 98 09/19/21 04:32 09/19/21 04:32 09/19/21 04:32 09/19/21 04:32 09/19/21 04:32 General appearance: Present: no acute distress, well-nourished - EENT Eyes: Present: PERRL, EOM intact - Neck Neck: Present: supple, normal ROM - Respiratory Respiratory effort: normal Respiratory: bilateral: diminished, negative: rales, rhonchi, wheezing - Cardiovascular Rhythm: regular Heart Sounds: Present: S1 & S2 - Extremities Extremities: no ischemia, No edema - Abdominal General gastrointestinal: soft, non-tender, non-distended, normal bowel sounds - Integumentary Integumentary: Present: clear, warm - Psychiatric Psychiatric: appropriate mood/affect, cooperative - Neurologic Neurologic: moves all extremities Results - Labs CBC & Chem 7: 09/19/21 05:58 09/19/21 05:58 Labs: Laboratory Last Values WBC 12.2 K/mm3 (4.5-11.0) H 09/19/21 05:58 RBC 5.07 M/mm3 (3.65-5.03) H 09/19/21 05:58 Hgb 14.9 gm/dl (10.1-14.3) H 09/19/21 05:58 Hct 44.9 % (30.3-42.9) H 09/19/21 05:58 MCV 89 fl (79-97) 09/19/21 05:58 MCH 29 pg (28-32) 09/19/21 05:58 MCHC 33 % (30-34) 09/19/21 05:58 RDW 13.8 % (13.2-15.2) 09/19/21 05:58 Plt Count 295 K/mm3 (140-440) 09/19/21 05:58 Lymph % (Auto) 14.6 % (13.4-35.0) 09/19/21 05:58 [place] % (Auto) 5.3 % (0.0-7.3) 09/19/21 05:58 Eos % (Auto) 3.1 % (0.0-4.3) 09/19/21 05:58 Baso % (Auto) 1.2 % (0.0-1.8) 09/19/21 05:58 Lymph # (Auto) 1.8 K/mm3 (1.2-5.4) 09/19/21 05:58 [place] # (Auto) 0.6 K/mm3 (0.0-0.8) 09/19/21 05:58 Eos # (Auto) 0.4 K/mm3 (0.0-0.4) 09/19/21 05:58 Baso # (Auto) 0.2 K/mm3 (0.0-0.1) H 09/19/21 05:58 Add Manual Diff Complete 09/13/21 05:22 Total Counted 100 09/13/21 05:22 Seg Neutrophils % 75.8 % (40.0-70.0) H 09/19/21 05:58 Seg Neuts % (Manual) 76.0 % (40.0-70.0) H 09/13/21 05:22 Band Neutrophils % 0 % 09/13/21 05:22 Lymphocytes % (Manual) 10.0 % (13.4-35.0) L 09/13/21 05:22 Reactive Lymphs % (Man) 0 % 09/13/21 05:22 Monocytes % (Manual) 6.0 % (0.0-7.3) 09/13/21 05:22 Eosinophils % (Manual) 4.0 % (0.0-4.3) 09/13/21 05:22 Basophils % (Manual) 1.0 % (0.0-1.8) 09/13/21 05:22 Metamyelocytes % 3.0 % 09/13/21 05:22 Myelocytes % 0 % 09/13/21 05:22 Promyelocytes % 0 % 09/13/21 05:22 Blast Cells % 0 % 09/13/21 05:22 Nucleated RBC % Not Reportable 09/13/21 05:22 Seg Neutrophils # 9.3 K/mm3 (1.8-7.7) H 09/19/21 05:58 Seg Neutrophils # Man 10.4 K/mm3 (1.8-7.7) H 09/13/21 05:22 Band Neutrophils # 0.0 K/mm3 09/13/21 05:22 Lymphocytes # (Manual) 1.4 K/mm3 (1.2-5.4) 09/13/21 05:22 Abs React Lymphs (Man) 0.0 K/mm3 09/13/21 05:22 Monocytes # (Manual) 0.8 K/mm3 (0.0-0.8) 09/13/21 05:22 Eosinophils # (Manual) 0.5 K/mm3 (0.0-0.4) H 09/13/21 05:22 Basophils # (Manual) 0.1 K/mm3 (0.0-0.1) 09/13/21 05:22 Metamyelocytes # 0.4 K/mm3 09/13/21 05:22 Myelocytes # 0.0 K/mm3 09/13/21 05:22 Promyelocytes # 0.0 K/mm3 09/13/21 05:22 Blast Cells # 0.0 K/mm3 09/13/21 05:22 WBC Morphology Not Reportable 09/13/21 05:22 Hypersegmented Neuts Not Reportable 09/13/21 05:22 Hyposegmented Neuts Not Reportable 09/13/21 05:22 Hypogranular Neuts Not Reportable 09/13/21 05:22 Smudge Cells Not Reportable 09/13/21 05:22 Toxic Granulation Not Reportable 09/13/21 05:22 Toxic Vacuolation Not Reportable 09/13/21 05:22 Dohle Bodies Not Reportable 09/13/21 05:22 Pelger-Huet Anomaly Not Reportable 09/13/21 05:22 Jeannine Rods Not Reportable 09/13/21 05:22 Platelet Estimate Consistent w auto 09/13/21 05:22 Clumped Platelets Not Reportable 09/13/21 05:22 Plt Clumps, EDTA Not Reportable 09/13/21 05:22 Large Platelets Rare 09/13/21 05:22 Giant Platelets Not Reportable 09/13/21 05:22 Platelet Satelliting Not Reportable 09/13/21 05:22 Plt Morphology Comment Not Reportable 09/13/21 05:22 RBC Morphology Not Reportable 09/13/21 05:22 Dimorphic RBCs Not Reportable 09/13/21 05:22 Polychromasia Not Reportable 09/13/21 05:22 Hypochromasia Not Reportable 09/13/21 05:22 Poikilocytosis Few 09/13/21 05:22 Anisocytosis Few 09/13/21 05:22 Microcytosis Not Reportable 09/13/21 05:22 Macrocytosis Not Reportable 09/13/21 05:22 Spherocytes Not Reportable 09/13/21 05:22 Pappenheimer Bodies Not Reportable 09/13/21 05:22 Sickle Cells Not Reportable 09/13/21 05:22 Target Cells Not Reportable 09/13/21 05:22 Tear Drop Cells Rare 09/13/21 05:22 Ovalocytes Rare 09/13/21 05:22 Helmet Cells Rare 09/13/21 05:22 [place] Bodies Not Reportable 09/13/21 05:22 [place] Rings Not Reportable 09/13/21 05:22 Bryce Cells Not Reportable 09/13/21 05:22 Bite Cells Not Reportable 09/13/21 05:22 Crenated Cell Not Reportable 09/13/21 05:22 Elliptocytes Not Reportable 09/13/21 05:22 Acanthocytes (Spur) Not Reportable 09/13/21 05:22 Rouleaux Not Reportable 09/13/21 05:22 Hemoglobin C Crystals Not Reportable 09/13/21 05:22 Schistocytes Not Reportable 09/13/21 05:22 Malaria parasites Not Reportable 09/13/21 05:22 Peter Bodies Not Reportable 09/13/21 05:22 Hem Pathologist Commnt No 09/13/21 05:22 Sodium 141 mmol/L (137-145) 09/19/21 05:58 Potassium 4.0 mmol/L (3.6-5.0) 09/19/21 05:58 Chloride 104.7 mmol/L (98-107) 09/19/21 05:58 Carbon Dioxide 23 mmol/L (22-30) 09/19/21 05:58 Anion Gap 17 mmol/L 09/19/21 05:58 BUN 9 mg/dL (7-17) 09/19/21 05:58 Creatinine 0.6 mg/dL (0.6-1.2) 09/19/21 05:58 Estimated GFR > 60 ml/min 09/19/21 05:58 BUN/Creatinine Ratio 15 % 09/19/21 05:58 Glucose 116 mg/dL (65-100) H 09/19/21 05:58 POC Glucose 182 mg/dL (70-105) H 09/10/21 18:23 Calcium 9.8 mg/dL (8.4-10.2) 09/19/21 05:58 Phosphorus 3.00 mg/dL (2.5-4.5) 09/11/21 04:40 Magnesium 2.20 mg/dL (1.7-2.3) 09/11/21 04:40 Total Bilirubin 0.80 mg/dL (0.1-1.2) 09/12/21 05:11 AST 73 units/L (5-40) H 09/12/21 05:11 ALT 77 units/L (7-56) H 09/12/21 05:11 Alkaline Phosphatase 92 units/L (35-129) 09/12/21 05:11 Total Creatine Kinase 833 units/L (30-135) H 09/13/21 05:22 Total Protein 6.3 g/dL (6.3-8.2) 09/12/21 05:11 Albumin 3.5 g/dL (3.9-5) L 09/12/21 05:11 Albumin/Globulin Ratio 1.3 % 09/12/21 05:11 HCG, Quant < 2 mIU/mL (0-4) 09/08/21 19:35 Urine Color Yellow (Yellow) 09/14/21 Unknown Urine Turbidity Clear (Clear) 09/14/21 Unknown Urine pH 7.5 (5.0-7.0) H 09/14/21 Unknown Ur Specific [place] 1.005 (1.003-1.030) 09/14/21 Unknown Urine Protein <15 mg/dl mg/dL (Negative) 09/14/21 Unknown Urine Glucose (UA) Negative mg/dL (Negative) 09/14/21 Unknown Urine Ketones Negative mg/dL (Negative) 09/14/21 Unknown Urine Blood Moderate (Negative) A 09/14/21 Unknown Urine Nitrite Negative (Negative) 09/14/21 Unknown Ur Reducing Substances Not Reportable 09/13/21 17:43 Urine Bilirubin Moderate (Negative) 09/14/21 Unknown Urine Ictotest Positive (Negative) 09/14/21 Unknown Urine Urobilinogen < 2.0 mg/dL (<2.0) 09/14/21 Unknown Ur Leukocyte Esterase Moderate (Negative) 09/14/21 Unknown Urine WBC (Auto) 14.0 /HPF (0.0-6.0) H 09/14/21 Unknown Urine RBC (Auto) 32.0 /HPF (0.0-6.0) 09/14/21 Unknown U Epithel Cells (Auto) 2.0 /HPF (0-13.0) 09/14/21 Unknown Hyaline Casts 6 /LPF 09/14/21 Unknown Urine Mucus Few /HPF 09/14/21 Unknown Urine Yeast (Budding) 3+ /HPF 09/14/21 Unknown Salicylates < 0.3 mg/dL (2.8-20.0) L 09/08/21 19:35 Urine Opiates Screen Negative 09/13/21 17:43 Urine Methadone Screen Negative 09/13/21 17:43 Acetaminophen 5.0 ug/mL (10.0-30.0) L 09/08/21 19:35 Ur Barbiturates Screen Negative 09/13/21 17:43 Ur Phencyclidine Scrn Negative 09/13/21 17:43 Ur Amphetamines Screen Negative 09/13/21 17:43 U Benzodiazepines Scrn Negative 09/13/21 17:43 Urine Cocaine Screen Negative 09/13/21 17:43 U Marijuana (THC) Screen Negative 09/13/21 17:43 Drugs of Abuse Note Disclamer 09/13/21 17:43 Plasma/Serum Alcohol < 0.01 % (0-0.07) 09/08/21 19:35 SARS-CoV-2 (PCR) Negative (Negative) 09/13/21 15:10 Hepatitis A IgM Ab Non-reactive (NonReactive) 09/10/21 05:16 Hep Bs Antigen Non-reactive (Negative) 09/10/21 05:16 Hep B Core IgM Ab Non-reactive (NonReactive) 09/10/21 05:16 Hepatitis C Antibody Non-reactive (NonReactive) 09/10/21 05:16 Microbiology: Microbiology 09/14/21 Unknown Urine,Clean Catch Urine Culture - Final Cherie Albicans Enterococcus Faecalis Pinedo/IV: Voiding Method Toilet Active Medications - Current Medications Current Medications: Generic Name Dose Route Start Last Admin Trade Name Freq PRN Reason Stop Dose Admin Acetaminophen 650 mg 09/08/21 22:08 Acetaminophen 325 Mg Tab PO Q4H PRN Pain MILD(1-3)/Fever >100.5/JERONIMO Albuterol 2.5 mg 09/08/21 22:08 Albuterol 2.5 Mg/3 Ml Nebu IH Q3HRT PRN Shortness Of Breath Aripiprazole 5 mg 09/09/21 13:00 09/18/21 10:11 Aripiprazole 5 Mg Tab PO 5 mg QDAY SAMANTHA Administration Citalopram Hydrobromide 20 mg 09/13/21 12:00 09/18/21 10:11 Citalopram 20 Mg Tab PO 20 mg QDAY SAMANTHA Administration Doxepin HCl 25 mg 09/10/21 22:00 09/18/21 22:37 Doxepin 25 Mg Cap PO 25 mg QHS SAMANTHA Administration Enoxaparin Sodium 40 mg 09/09/21 10:00 09/18/21 10:11 Enoxaparin 40 Mg/0.4 Ml Inj SUB-Q 40 mg DAILY SAMANTHA Administration Protocol Famotidine 20 mg 09/10/21 10:00 09/18/21 22:31 Famotidine 20 Mg Tab PO 20 mg BID SAMANTHA Administration Gabapentin 300 mg 09/10/21 14:00 09/19/21 05:53 Gabapentin 300 Mg Cap PO 300 mg Q8HR SAMANTHA Administration Hydroxyzine Pamoate 50 mg 09/10/21 11:00 09/18/21 22:31 Hydroxyzine Pamoate 50 Mg Cap PO 50 mg BID SAMANTHA Administration Ceftriaxone Sodium 1 gm in 50 mls @ 100 mls/hr 09/15/21 10:00 09/18/21 10:10 Rocephin/Ns 1 Gm/50 Ml IV 100 mls/hr Q24H SAMANTHA Administration Protocol Levetiracetam 750 mg 09/13/21 10:00 09/18/21 22:31 Levetiracetam 500 Mg Tab PO 750 mg BID SAMANTHA Administration Lorazepam 2 mg 09/10/21 18:27 09/11/21 12:50 Lorazepam 2 Mg/Ml Vial IV 2 mg Q4H PRN Administration Seizures Mirtazapine 7.5 mg 09/13/21 22:00 09/18/21 22:30 Mirtazapine 15 Mg Tab PO 7.5 mg QHS SAMANTHA Administration Morphine Sulfate 2 mg 09/08/21 22:08 Morphine 2 Mg/1 Ml Inj IV Q4H PRN Pain, Moderate (4-6) Morphine Sulfate 4 mg 09/08/21 22:08 Morphine 4 Mg/1 Ml Inj IV Q4H PRN Pain , Severe (7-10) Naloxone HCl 0.1 mg 09/08/21 18:20 Naloxone 0.4 Mg/1 Ml Inj IV Q2MIN PRN Res Rate </= 8 or 02 SAT < 92% Ondansetron HCl 4 mg 09/08/21 22:08 09/10/21 17:35 Ondansetron 4 Mg/2 Ml Inj IV 4 mg Q8H PRN Administration Nausea And Vomiting Sodium Chloride 10 ml 09/09/21 10:00 09/18/21 22:37 Sodium Chloride 0.9% 10 Ml Flush Syringe IV 10 ml BID SAMANTHA Administration Sodium Chloride 10 ml 09/08/21 22:08 Sodium Chloride 0.9% 10 Ml Flush Syringe IV PRN PRN LINE FLUSH Nutrition/Malnutrition Assess - Dietary Evaluation Nutrition/Malnutrition Findings: Nutrition Notes Start: 09/15/21 12:06 Freq: Status: Active Protocol: Document 09/15/21 12:06 BLESSING (Rec: 09/15/21 12:11 [facility] [id number]) Nutrition Notes Need for Assessment generated from: LOS Initial or Follow up Assessment Other Pertinent Diagnosis Opioid overdose, MDD, seizures Current Diet GI soft Labs/Tests No current available Pertinent Medications Remeron Height 5 ft 7 in Weight 79.3 kg [place] Body Weight (kg) 61.36 BMI 27.3 Weight Status Overweight Subjective/Other Information Pt screened for LOS. She has consumed 46% of meals since admission. Percent of energy/protein needs met: 47% energy 60% pro Burn Absent Trauma Absent Current % PO Poor (25-49%) Minimum of two criteria No #1 Nutrition Diagnosis Inadequate protein-energy intake Etiology opioid overdose As Evidenced by Signs and Symptoms PO intake meeting <75% energy and pro needs Is patient on ventilator? No Is Patient Ambulatory and/or Out of Bed Yes REE-([facility]-ambulatory/OOB) [ 1963.819 [id number]] Calculation Used for Recommendations [place] Additional Notes Pro needs 0.8-1g/k-79g/ day Fluid needs 1ml/kcal Nutrition Intervention Change Diet Order: Continue current diet order Goal #1 PO intake to meet at least 75% energy and pro needs Anticipated Discharge Needs: None identified at this time Follow-Up By: 09/20/21 Additional Comments F/U: intakes, need for ONS, wt
[2021-09-19] MEDS: ENOXAPARIN 40 MG/0.4 ML INJ SUB-Q SCH (10:18)
[2021-09-19] MEDS: levETIRAcetam 500 MG TAB PO SCH ×2 (10:18→23:33)
[2021-09-19] MEDS: ARIPiprazole 5 MG TAB PO SCH (10:18)
[2021-09-19] MEDS: CITALOPRAM 20 MG TAB PO SCH (10:18)
[2021-09-19] MEDS: FAMOTIDINE 20 MG TAB PO SCH ×2 (10:18→23:33)
[2021-09-19] MEDS: cefTRIAXone/NS 1 GM/50 ML 1 GM/50 ML BAG IV SCH (10:20)
--- NOTE | 2021-09-19 14:59 | Progress Note ---
Subjective - Reason for Consult Reason for consult: MHE - Chief Complaint Chief complaint: Date of service: 09/19/21 Patient seen today out of bed. Patient able to verbalize and respond when asked a questions. Patient states her depression is at a 5/10 and denies any SI/HI/AVH at this time. Patient waiting placement pending lab results. Date of service: 09/18/21 patient seen today. No changes at this time. Date of service: 09/17/21 Patient seen today on the floor. Patient observed to nodding and shaking head when asked a question. Patient asked to verbalize and she agreed to it. Patient denies SI/HI/AVH, but admits to having depression of a 7/10. Patient states she is sleeping and eating well. DATE SEEN: 09/16/21 Patient seen today. Patient mostly nods to questions asked. Patient did answer that on a scale of 1/10 her depression is a 6. Per nursing staff patient takes off all her clothes and anything that she is hooked on to whenever she needs to go the bathroom and lays back down without her clothes. Patient denies having any SI/HI/AVH at this time. Patient waiting on inpatient placement. 09/15/21 Patient seen today in her room. Patient States that she is "doing good" Patient states that she recently lost her boyfriend of 15 years to drug overdose, and states that what triggered her episode. Patient has a hx of using heroine and states she uses it 6-7x daily. Admits last usage was just before she was brought in. Patient currently denies any SI/HI/AVH. Patient is awaiting placement at this time. The patient was seen today. She continues to be withdrawn, and quiet with flat affect. She doesn't really talk, but answers questions with one words or by nodding or shaking her head. The patient endorses hopelessness, and being depressed. She does deny SI/HI. I ask her what was going through her mind at present, she just stares at me and shakes her head. Will continue recommendation for inpatient treatment. The patient expresses hopelessness, and has passive suicidal thoughts. If discharged she runs the risk of deterioration of her mental health. The patient will be referred to a psychiatric facility once medically clear. ROS: Constitutional: Negative for weight loss ENT: Negative for stridor Respiratory: Negative for cough or hemoptysis All other systems reviewed and are negative MENTAL STATUS General Appearance and Behavior: age appropriate, evasive, guarded, poor eye contact, withdrawn Psychomotor Behavior: within normal limits Mood: depressed Affect and affective range: flat Thought Process: thought blocking Thought Content: hopelessness Speech: Normal volume and Regular rate and rhythm Suicidal Ideation: passive Homicidal Ideation: Denies HI Hallucinations: Denies Impulse Control: impaired Insight and Judgment: poor Memory: poor Attention: poor Orientation: alert Assessment Opiate Overdose Major Depressive Disorder Treatment Plan 1013 Celexa 20mg po daily Remeron 7.5mg po to induce appetite. Doxepin 25mg po qhs Gabapentin 300mg po q8h Abilify 5mg po daily Vistaril 50mg po BID Medical: per primary Sitter: defer to primary Disposition: Recommend acute psychiatric inpatient treatment Will follow. Thanks. Case staffed by Dr. Urena Mental Status Exam - Vital signs Last Vital Signs Temp 97.5 F L 09/19/21 10:48 Pulse 124 H 09/19/21 10:48 Resp 18 09/19/21 10:48 BP 146/96 09/19/21 10:48 Pulse Ox 96 09/19/21 10:48
[2021-09-19] MEDS: DOXEPIN 25 MG CAP PO SCH (23:34)
[2021-09-19] MEDS: MIRTAZAPINE 15 MG TAB PO SCH (23:34)
[2021-09-20] MEDS: GABAPENTIN 300 MG CAP PO SCH ×3 (05:55→21:51)
--- NOTE | 2021-09-20 09:19 | Progress Note ---
Assessment and Plan Assessment and plan: #Opioid overdose #Major depressive disorder -Continue Celexa, doxepin, gabapentin, Abilify, Vistaril. Psychiatry following. -Recommendations for acute psychiatric inpatient treatment #Polysubstance abuse Counseling done patient strongly advised to quit substance abuse Verbalized understanding Advised to seek detox and rehabilitation #1013 status According to patient's mother and chart review, the patient has been snorting heroin for 10 years. Patient was found unresponsive at home by family and EMS was called. Patient will begin to undergo opioid withdrawal while being hospitalized. Continue supportive management. Psychiatry consulted; appreciate recs. Patient placed under 1013. -Patient engages in the following substances: Heroin -Counseled patient about the importance of cessation of substance abuse. Offered resources to help with quitting. Patient expresses understanding. -Time: +15 mins #Seizures - Ativan as needed for breakthrough seizure. Continue p.o. keppra 750mg BID. -Seizure precautions, do not drive until cleared by neurologist #Rhabdomyolysis-resolved Creatine kinase 5143-->7274-->4537--> 2341-->833 Likely secondary to opioid overdose and patient being found unresponsive at home. Encouraging p.o. intake. Continue to trend creatine kinase. #Urinary tract infection/Cherie albicans, Enterococcus faecalis Status post Rocephin Urine cultures Cherie albicans, patient is worsening leukocytosis Start Diflucan 200 mg daily for 14 days Enterococcus faecalis, sensitive to doxycycline Check with ID for choice of antibiotics and length of treatment # leukocytosis WBC worsening 14K --11.8-15. 7 Possibly secondary to stress response/tract infection continue Rocephin for UTI, urine analysis positive for fungus Cherie albicans Continue Rocephin for UTI, Blood cultures no growth. -Chest x-ray negative -Patient was denied acute inpatient psychiatric admission due to leukocytosis. Continue to follow #Elevated transaminasesresolved Possibly secondary to substance abuse. Unremarkable acute hepatitis panel. Continue to monitor #Metabolic acidosisresolved #Hypokalemia Resolved #DVT prophylaxis; Subcu Lovenox DC planning per case management Closely monitor the patient and adjust management as needed Plan of care reviewed with the patient and her nurse as well as the case management Possible discharge in 1 to 2 days if stable Follow morning labs and psych recommendations. Possible discharge in 1 to 2 days if stable 09/19/2019; patient continues to have leukocytosis 11.8 Receiving antibiotics for urinary tract infection, 1013 status Psych inpatient psych placement 09/19; patient's WBC increased to 12.2 Patient remains 1013 status 09/20; patient started on doxycycline and Diflucan Check ID for choice of antibiotics and duration of treatment Plan of care reviewed with the patient and her nurse Psych recommendations noted and appreciated History Interval history: I have seen and examined the patient at the bedside Patient's chart and medications reviewed No new events reported by the nursing Patient is calm and quiet, not in acute distress Vital signs noted Hospitalist Physical - Constitutional Vitals: Temp Pulse Resp BP Pulse Ox 97.2 F L 114 H 18 131/82 98 09/19/21 17:13 09/19/21 17:13 09/19/21 17:13 09/19/21 17:13 09/19/21 17:13 General appearance: Present: no acute distress, well-nourished - EENT Eyes: Present: PERRL, EOM intact - Neck Neck: Present: supple, normal ROM - Respiratory Respiratory effort: normal Respiratory: bilateral: diminished, negative: rales, rhonchi, wheezing - Cardiovascular Rhythm: regular Heart Sounds: Present: S1 & S2 - Extremities Extremities: no ischemia, No edema - Abdominal General gastrointestinal: soft, non-tender, non-distended, normal bowel sounds - Integumentary Integumentary: Present: clear, warm - Psychiatric Psychiatric: appropriate mood/affect, cooperative - Neurologic Neurologic: CNII-XII intact, moves all extremities Results - Labs CBC & Chem 7: 09/20/21 11:36 09/19/21 05:58 Labs: Laboratory Last Values WBC 12.2 K/mm3 (4.5-11.0) H 09/19/21 05:58 RBC 5.07 M/mm3 (3.65-5.03) H 09/19/21 05:58 Hgb 14.9 gm/dl (10.1-14.3) H 09/19/21 05:58 Hct 44.9 % (30.3-42.9) H 09/19/21 05:58 MCV 89 fl (79-97) 09/19/21 05:58 MCH 29 pg (28-32) 09/19/21 05:58 MCHC 33 % (30-34) 09/19/21 05:58 RDW 13.8 % (13.2-15.2) 09/19/21 05:58 Plt Count 295 K/mm3 (140-440) 09/19/21 05:58 Lymph % (Auto) 14.6 % (13.4-35.0) 09/19/21 05:58 [place] % (Auto) 5.3 % (0.0-7.3) 09/19/21 05:58 Eos % (Auto) 3.1 % (0.0-4.3) 09/19/21 05:58 Baso % (Auto) 1.2 % (0.0-1.8) 09/19/21 05:58 Lymph # (Auto) 1.8 K/mm3 (1.2-5.4) 09/19/21 05:58 [place] # (Auto) 0.6 K/mm3 (0.0-0.8) 09/19/21 05:58 Eos # (Auto) 0.4 K/mm3 (0.0-0.4) 09/19/21 05:58 Baso # (Auto) 0.2 K/mm3 (0.0-0.1) H 09/19/21 05:58 Add Manual Diff Complete 09/13/21 05:22 Total Counted 100 09/13/21 05:22 Seg Neutrophils % 75.8 % (40.0-70.0) H 09/19/21 05:58 Seg Neuts % (Manual) 76.0 % (40.0-70.0) H 09/13/21 05:22 Band Neutrophils % 0 % 09/13/21 05:22 Lymphocytes % (Manual) 10.0 % (13.4-35.0) L 09/13/21 05:22 Reactive Lymphs % (Man) 0 % 09/13/21 05:22 Monocytes % (Manual) 6.0 % (0.0-7.3) 09/13/21 05:22 Eosinophils % (Manual) 4.0 % (0.0-4.3) 09/13/21 05:22 Basophils % (Manual) 1.0 % (0.0-1.8) 09/13/21 05:22 Metamyelocytes % 3.0 % 09/13/21 05:22 Myelocytes % 0 % 09/13/21 05:22 Promyelocytes % 0 % 09/13/21 05:22 Blast Cells % 0 % 09/13/21 05:22 Nucleated RBC % Not Reportable 09/13/21 05:22 Seg Neutrophils # 9.3 K/mm3 (1.8-7.7) H 09/19/21 05:58 Seg Neutrophils # Man 10.4 K/mm3 (1.8-7.7) H 09/13/21 05:22 Band Neutrophils # 0.0 K/mm3 09/13/21 05:22 Lymphocytes # (Manual) 1.4 K/mm3 (1.2-5.4) 09/13/21 05:22 Abs React Lymphs (Man) 0.0 K/mm3 09/13/21 05:22 Monocytes # (Manual) 0.8 K/mm3 (0.0-0.8) 09/13/21 05:22 Eosinophils # (Manual) 0.5 K/mm3 (0.0-0.4) H 09/13/21 05:22 Basophils # (Manual) 0.1 K/mm3 (0.0-0.1) 09/13/21 05:22 Metamyelocytes # 0.4 K/mm3 09/13/21 05:22 Myelocytes # 0.0 K/mm3 09/13/21 05:22 Promyelocytes # 0.0 K/mm3 09/13/21 05:22 Blast Cells # 0.0 K/mm3 09/13/21 05:22 WBC Morphology Not Reportable 09/13/21 05:22 Hypersegmented Neuts Not Reportable 09/13/21 05:22 Hyposegmented Neuts Not Reportable 09/13/21 05:22 Hypogranular Neuts Not Reportable 09/13/21 05:22 Smudge Cells Not Reportable 09/13/21 05:22 Toxic Granulation Not Reportable 09/13/21 05:22 Toxic Vacuolation Not Reportable 09/13/21 05:22 Dohle Bodies Not Reportable 09/13/21 05:22 Pelger-Huet Anomaly Not Reportable 09/13/21 05:22 Jeannine Rods Not Reportable 09/13/21 05:22 Platelet Estimate Consistent w auto 09/13/21 05:22 Clumped Platelets Not Reportable 09/13/21 05:22 Plt Clumps, EDTA Not Reportable 09/13/21 05:22 Large Platelets Rare 09/13/21 05:22 Giant Platelets Not Reportable 09/13/21 05:22 Platelet Satelliting Not Reportable 09/13/21 05:22 Plt Morphology Comment Not Reportable 09/13/21 05:22 RBC Morphology Not Reportable 09/13/21 05:22 Dimorphic RBCs Not Reportable 09/13/21 05:22 Polychromasia Not Reportable 09/13/21 05:22 Hypochromasia Not Reportable 09/13/21 05:22 Poikilocytosis Few 09/13/21 05:22 Anisocytosis Few 09/13/21 05:22 Microcytosis Not Reportable 09/13/21 05:22 Macrocytosis Not Reportable 09/13/21 05:22 Spherocytes Not Reportable 09/13/21 05:22 Pappenheimer Bodies Not Reportable 09/13/21 05:22 Sickle Cells Not Reportable 09/13/21 05:22 Target Cells Not Reportable 09/13/21 05:22 Tear Drop Cells Rare 09/13/21 05:22 Ovalocytes Rare 09/13/21 05:22 Helmet Cells Rare 09/13/21 05:22 Palacios-Brutus Bodies Not Reportable 09/13/21 05:22 [place] Rings Not Reportable 09/13/21 05:22 Bryce Cells Not Reportable 09/13/21 05:22 Bite Cells Not Reportable 09/13/21 05:22 Crenated Cell Not Reportable 09/13/21 05:22 Elliptocytes Not Reportable 09/13/21 05:22 Acanthocytes (Spur) Not Reportable 09/13/21 05:22 Rouleaux Not Reportable 09/13/21 05:22 Hemoglobin C Crystals Not Reportable 09/13/21 05:22 Schistocytes Not Reportable 09/13/21 05:22 Malaria parasites Not Reportable 09/13/21 05:22 Peter Bodies Not Reportable 09/13/21 05:22 Hem Pathologist Commnt No 09/13/21 05:22 Sodium 141 mmol/L (137-145) 09/19/21 05:58 Potassium 4.0 mmol/L (3.6-5.0) 09/19/21 05:58 Chloride 104.7 mmol/L (98-107) 09/19/21 05:58 Carbon Dioxide 23 mmol/L (22-30) 09/19/21 05:58 Anion Gap 17 mmol/L 09/19/21 05:58 BUN 9 mg/dL (7-17) 09/19/21 05:58 Creatinine 0.6 mg/dL (0.6-1.2) 09/19/21 05:58 Estimated GFR > 60 ml/min 09/19/21 05:58 BUN/Creatinine Ratio 15 % 09/19/21 05:58 Glucose 116 mg/dL (65-100) H 09/19/21 05:58 POC Glucose 182 mg/dL (70-105) H 09/10/21 18:23 Calcium 9.8 mg/dL (8.4-10.2) 09/19/21 05:58 Phosphorus 3.00 mg/dL (2.5-4.5) 09/11/21 04:40 Magnesium 2.20 mg/dL (1.7-2.3) 09/11/21 04:40 Total Bilirubin 0.80 mg/dL (0.1-1.2) 09/12/21 05:11 AST 73 units/L (5-40) H 09/12/21 05:11 ALT 77 units/L (7-56) H 09/12/21 05:11 Alkaline Phosphatase 92 units/L (35-129) 09/12/21 05:11 Total Creatine Kinase 833 units/L (30-135) H 09/13/21 05:22 Total Protein 6.3 g/dL (6.3-8.2) 09/12/21 05:11 Albumin 3.5 g/dL (3.9-5) L 09/12/21 05:11 Albumin/Globulin Ratio 1.3 % 09/12/21 05:11 HCG, Quant < 2 mIU/mL (0-4) 09/08/21 19:35 Urine Color Yellow (Yellow) 09/14/21 Unknown Urine Turbidity Clear (Clear) 09/14/21 Unknown Urine pH 7.5 (5.0-7.0) H 09/14/21 Unknown Ur Specific [place] 1.005 (1.003-1.030) 09/14/21 Unknown Urine Protein <15 mg/dl mg/dL (Negative) 09/14/21 Unknown Urine Glucose (UA) Negative mg/dL (Negative) 09/14/21 Unknown Urine Ketones Negative mg/dL (Negative) 09/14/21 Unknown Urine Blood Moderate (Negative) A 09/14/21 Unknown Urine Nitrite Negative (Negative) 09/14/21 Unknown Ur Reducing Substances Not Reportable 09/13/21 17:43 Urine Bilirubin Moderate (Negative) 09/14/21 Unknown Urine Ictotest Positive (Negative) 09/14/21 Unknown Urine Urobilinogen < 2.0 mg/dL (<2.0) 09/14/21 Unknown Ur Leukocyte Esterase Moderate (Negative) 09/14/21 Unknown Urine WBC (Auto) 14.0 /HPF (0.0-6.0) H 09/14/21 Unknown Urine RBC (Auto) 32.0 /HPF (0.0-6.0) 09/14/21 Unknown U Epithel Cells (Auto) 2.0 /HPF (0-13.0) 09/14/21 Unknown Hyaline Casts 6 /LPF 09/14/21 Unknown Urine Mucus Few /HPF 09/14/21 Unknown Urine Yeast (Budding) 3+ /HPF 09/14/21 Unknown Salicylates < 0.3 mg/dL (2.8-20.0) L 09/08/21 19:35 Urine Opiates Screen Negative 09/13/21 17:43 Urine Methadone Screen Negative 09/13/21 17:43 Acetaminophen 5.0 ug/mL (10.0-30.0) L 09/08/21 19:35 Ur Barbiturates Screen Negative 09/13/21 17:43 Ur Phencyclidine Scrn Negative 09/13/21 17:43 Ur Amphetamines Screen Negative 09/13/21 17:43 U Benzodiazepines Scrn Negative 09/13/21 17:43 Urine Cocaine Screen Negative 09/13/21 17:43 U Marijuana (THC) Screen Negative 09/13/21 17:43 Drugs of Abuse Note Disclamer 09/13/21 17:43 Plasma/Serum Alcohol < 0.01 % (0-0.07) 09/08/21 19:35 SARS-CoV-2 (PCR) Negative (Negative) 09/13/21 15:10 Hepatitis A IgM Ab Non-reactive (NonReactive) 09/10/21 05:16 Hep Bs Antigen Non-reactive (Negative) 09/10/21 05:16 Hep B Core IgM Ab Non-reactive (NonReactive) 09/10/21 05:16 Hepatitis C Antibody Non-reactive (NonReactive) 09/10/21 05:16 Pinedo/IV: Voiding Method Toilet Active Medications - Current Medications Current Medications: Generic Name Dose Route Start Last Admin Trade Name Freq PRN Reason Stop Dose Admin Acetaminophen 650 mg 09/08/21 22:08 Acetaminophen 325 Mg Tab PO Q4H PRN Pain MILD(1-3)/Fever >100.5/JERONIMO Albuterol 2.5 mg 09/08/21 22:08 Albuterol 2.5 Mg/3 Ml Nebu IH Q3HRT PRN Shortness Of Breath Aripiprazole 5 mg 09/09/21 13:00 09/19/21 10:18 Aripiprazole 5 Mg Tab PO 5 mg QDAY SAMANTHA Administration Citalopram Hydrobromide 20 mg 09/13/21 12:00 09/19/21 10:18 Citalopram 20 Mg Tab PO 20 mg QDAY SAMANTHA Administration Doxepin HCl 25 mg 09/10/21 22:00 09/19/21 23:34 Doxepin 25 Mg Cap PO 25 mg QHS SAMANTHA Administration Enoxaparin Sodium 40 mg 09/09/21 10:00 09/19/21 10:18 Enoxaparin 40 Mg/0.4 Ml Inj SUB-Q 40 mg DAILY SAMANTHA Administration Protocol Famotidine 20 mg 09/10/21 10:00 09/19/21 23:33 Famotidine 20 Mg Tab PO 20 mg BID SAMANTHA Administration Gabapentin 300 mg 09/10/21 14:00 09/20/21 05:55 Gabapentin 300 Mg Cap PO 300 mg Q8HR SAMANTHA Administration Hydroxyzine Pamoate 50 mg 09/10/21 11:00 09/19/21 23:33 Hydroxyzine Pamoate 50 Mg Cap PO 50 mg BID SAMANTHA Administration Ceftriaxone Sodium 1 gm in 50 mls @ 100 mls/hr 09/15/21 10:00 09/19/21 10:20 Rocephin/Ns 1 Gm/50 Ml IV 100 mls/hr Q24H SAMANTHA Administration Protocol Levetiracetam 750 mg 09/13/21 10:00 09/19/21 23:33 Levetiracetam 500 Mg Tab PO 750 mg BID SAMANTHA Administration Lorazepam 2 mg 09/10/21 18:27 09/11/21 12:50 Lorazepam 2 Mg/Ml Vial IV 2 mg Q4H PRN Administration Seizures Mirtazapine 7.5 mg 09/13/21 22:00 09/19/21 23:34 Mirtazapine 15 Mg Tab PO 7.5 mg QHS SAMANTHA Administration Morphine Sulfate 2 mg 09/08/21 22:08 Morphine 2 Mg/1 Ml Inj IV Q4H PRN Pain, Moderate (4-6) Morphine Sulfate 4 mg 09/08/21 22:08 Morphine 4 Mg/1 Ml Inj IV Q4H PRN Pain , Severe (7-10) Naloxone HCl 0.1 mg 09/08/21 18:20 Naloxone 0.4 Mg/1 Ml Inj IV Q2MIN PRN Res Rate </= 8 or 02 SAT < 92% Ondansetron HCl 4 mg 09/08/21 22:08 09/10/21 17:35 Ondansetron 4 Mg/2 Ml Inj IV 4 mg Q8H PRN Administration Nausea And Vomiting Sodium Chloride 10 ml 09/09/21 10:00 09/19/21 23:37 Sodium Chloride 0.9% 10 Ml Flush Syringe IV 10 ml BID SAMANTHA Administration Sodium Chloride 10 ml 09/08/21 22:08 Sodium Chloride 0.9% 10 Ml Flush Syringe IV PRN PRN LINE FLUSH Nutrition/Malnutrition Assess - Dietary Evaluation Nutrition/Malnutrition Findings: Nutrition Notes Start: 09/15/21 12:06 Freq: Status: Active Protocol: Document 09/15/21 12:06 BLESSING (Rec: 09/15/21 12:11 BLESSING [id number]) Nutrition Notes Need for Assessment generated from: LOS Initial or Follow up Assessment Other Pertinent Diagnosis Opioid overdose, MDD, seizures Current Diet GI soft Labs/Tests No current available Pertinent Medications Remeron Height 5 ft 7 in Weight 79.3 kg Sabin Body Weight (kg) 61.36 BMI 27.3 Weight Status Overweight Subjective/Other Information Pt screened for LOS. She has consumed 46% of meals since admission. Percent of energy/protein needs met: 47% energy 60% pro Burn Absent Trauma Absent Current % PO Poor (25-49%) Minimum of two criteria No #1 Nutrition Diagnosis Inadequate protein-energy intake Etiology opioid overdose As Evidenced by Signs and Symptoms PO intake meeting <75% energy and pro needs Is patient on ventilator? No Is Patient Ambulatory and/or Out of Bed Yes REE-([facility]-ambulatory/OOB) [ 1963.819 [id number]] Calculation Used for Recommendations [facility] Additional Notes Pro needs 0.8-1g/k-79g/ day Fluid needs 1ml/kcal Nutrition Intervention Change Diet Order: Continue current diet order Goal #1 PO intake to meet at least 75% energy and pro needs Anticipated Discharge Needs: None identified at this time Follow-Up By: 09/20/21 Additional Comments F/U: intakes, need for ONS, wt
[2021-09-20] MEDS: ARIPiprazole 5 MG TAB PO SCH (09:21)
[2021-09-20] MEDS: levETIRAcetam 500 MG TAB PO SCH ×2 (09:21→21:52)
[2021-09-20] MEDS: ENOXAPARIN 40 MG/0.4 ML INJ SUB-Q SCH (09:22)
[2021-09-20] MEDS: cefTRIAXone/NS 1 GM/50 ML 1 GM/50 ML BAG IV SCH (09:22)
[2021-09-20] MEDS: FAMOTIDINE 20 MG TAB PO SCH ×2 (09:22→21:52)
[2021-09-20] MEDS: CITALOPRAM 20 MG TAB PO SCH (09:22)
[2021-09-20 12:03] LABS: Basophils # (Auto) 0.2 K/mm3 (0.0-0.1); Basophils % (Auto) 1.4 % (0.0-1.8); Eosinophils # (Auto) 0.2 K/mm3 (0.0-0.4); Eosinophils % (Auto) 1.4 % (0.0-4.3); Hematocrit 43.9 % (30.3-42.9); Hemoglobin 14.7 gm/dl (10.1-14.3); Lymphocytes # (Auto) 1.8 K/mm3 (1.2-5.4); Lymphocytes % (Auto) 11.8 % (13.4-35.0); Mean Corpuscular HGB Conc 33 % (30-34); Mean Corpuscular Volume 88 fl (79-97); Monocytes # (Auto) 0.8 K/mm3 (0.0-0.8); Monocytes % (Auto) 5.1 % (0.0-7.3); Platelet Count 335 K/mm3 (140-440); Red Blood Count 4.96 M/mm3 (3.65-5.03); Red Cell Distribution Width 13.6 % (13.2-15.2)
[2021-09-20] MEDS: DOXYCYCLINE 100 MG CAP PO SCH ×2 (14:29→21:50)
--- NOTE | 2021-09-20 14:41 | Progress Note ---
Subjective - Reason for Consult Reason for consult: MHE - Chief Complaint Chief complaint: Date of service: 09/20/21 Patient seen today teary and states that she would like to go for rehab and is worried she would go back to heroin if released without rehab. Patients WBC continues to be elevated preventing patient placement at this time. Recommending inpatient. Date of service: 09/19/21 Patient seen today out of bed. Patient able to verbalize and respond when asked a questions. Patient states her depression is at a 5/10 and denies any SI/HI/AVH at this time. Patient waiting placement pending lab results. Date of service: 09/18/21 patient seen today. No changes at this time. Date of service: 09/17/21 Patient seen today on the floor. Patient observed to nodding and shaking head when asked a question. Patient asked to verbalize and she agreed to it. Patient denies SI/HI/AVH, but admits to having depression of a 7/10. Patient states she is sleeping and eating well. DATE SEEN: 09/16/21 Patient seen today. Patient mostly nods to questions asked. Patient did answer that on a scale of 1/10 her depression is a 6. Per nursing staff patient takes off all her clothes and anything that she is hooked on to whenever she needs to go the bathroom and lays back down without her clothes. Patient denies having any SI/HI/AVH at this time. Patient waiting on inpatient placement. 09/15/21 Patient seen today in her room. Patient States that she is "doing good" Patient states that she recently lost her boyfriend of 15 years to drug overdose, and st ates that what triggered her episode. Patient has a hx of using heroine and states she uses it 6-7x daily. Admits last usage was just before she was brought in. Patient currently denies any SI/HI/AVH. Patient is awaiting placement at this time. The patient was seen today. She continues to be withdrawn, and quiet with flat affect. She doesn't really talk, but answers questions with one words or by nodding or shaking her head. The patient endorses hopelessness, and being depressed. She does deny SI/HI. I ask her what was going through her mind at present, she just stares at me and shakes her head. Will continue recommendation for inpatient treatment. The patient expresses hopelessness, and has passive suicidal thoughts. If discharged she runs the risk of deterioration of her mental health. The patient will be referred to a psychiatric facility once medically clear. ROS: Constitutional: Negative for weight loss ENT: Negative for stridor Respiratory: Negative for cough or hemoptysis All other systems reviewed and are negative MENTAL STATUS General Appearance and Behavior: age appropriate, evasive, guarded, poor eye contact, withdrawn Psychomotor Behavior: within normal limits Mood: depressed Affect and affective range: flat Thought Process: thought blocking Thought Content: hopelessness Speech: Normal volume and Regular rate and rhythm Suicidal Ideation: passive Homicidal Ideation: Denies HI Hallucinations: Denies Impulse Control: impaired Insight and Judgment: poor Memory: poor Attention: poor Orientation: alert Assessment Opiate Overdose Major Depressive Disorder Treatment Plan 1013 Celexa 20mg po daily Remeron 7.5mg po to induce appetite. Doxepin 25mg po qhs Gabapentin 300mg po q8h Abilify 5mg po daily Vistaril 50mg po BID Medical: per primary Sitter: defer to primary Disposition: Recommend acute psychiatric inpatient treatment Will follow. Thanks. Case staffed by Dr. Urena Mental Status Exam - Vital signs Last Vital Signs Temp 97.6 F 09/20/21 08:16 Pulse 137 H 09/20/21 08:16 Resp 18 09/20/21 10:00 BP 140/103 09/20/21 08:16 Pulse Ox 100 09/20/21 10:00
--- NOTE | 2021-09-20 20:25 | Progress Note ---
Assessment and Plan Assessment and plan: --Opioid overdose; Symptoms resolved --Major depressive disorder Continue Celexa, doxepin, gabapentin, Abilify, Vistaril. Psychiatry following. Management per psych ,recommendations acute inpatient psychiatric treatment --Polysubstance abuse Counseling done patient strongly advised to quit substance abuse Advised to seek drug detox and rehabilitation Verbalized understanding --1013 status According to patient's mother and chart review, the patient has been snorting heroin for 10 years. Patient was found unresponsive at home by family and EMS was called. Patient will begin to undergo opioid withdrawal while being hospitalized. Continue supportive management. Psychiatry consulted; appreciate recs. Patient placed under 1013. -Patient engages in the following substances: Heroin -Counseled patient about the importance of cessation of substance abuse. Offered resources to help with quitting. Patient expresses understanding. -Time: +15 mins --Seizures Ativan as needed for breakthrough seizure. Continue p.o. keppra 750mg BID. Seizure precautions, do not drive until cleared by neurologist --Rhabdomyolysis-resolved Creatine kinase 5143-->7274-->4537--> 2341-->833 Likely secondary to opioid overdose and patient being found unresponsive at home. Encouraging p.o. intake. Continue to trend creatine kinase. --Urinary tract infection/Cherie albicans, Enterococcus faecalis Status post Rocephin Urine cultures Cherie albicans, patient is worsening leukocytosis Start Diflucan 200 mg daily for 14 days Enterococcus faecalis, sensitive to doxycycline Check with ID for choice of antibiotics and length of treatment --Sepsis due to urinary tract infection Continue current antibiotics, antifungal --leukocytosis WBC worsening 14K --11.8-15.7-11.4 Stress related as well as due to sepsis due to UTI Patient was denied acute inpatient psychiatric admission due to leukocytosis. Treat underlying cause , patient is receiving antibiotics for UTI Chest x-ray negative --Elevated transaminasesresolved Possibly secondary to substance abuse. Unremarkable acute hepatitis panel. --Metabolic acidosisresolved --Hypokalemia Resolved --DVT prophylaxis; Subcu Lovenox DC planning per case management Closely monitor the patient and adjust management as needed Plan of care reviewed with the patient and her nurse as well as the case management Possible discharge in 1 to 2 days if stable Follow morning labs and psych recommendations. Possible discharge in 1 to 2 days if stable 09/19/2019; patient continues to have leukocytosis 11.8 Receiving antibiotics for urinary tract infection, 1013 status Psych inpatient psych placement 09/19; patient's WBC increased to 12.2 Patient remains 1013 status 09/20; patient started on doxycycline and Diflucan Check ID for choice of antibiotics and duration of treatment Plan of care reviewed with the patient and her nurse Psych recommendations noted and appreciated 09/21; patient is medically stable for discharge On oral antibiotics for her UTI Elevated WBC secondary to urinary tract infection and partly stress related No contraindication for discharge Disposition per psych History Interval history: I have seen and examined the patient at the bedside 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 patient feels slightly better, cheerful Denies suicidal thoughts or ideation Anxious to go home/rehab/psych facility Vital signs noted Hospitalist Physical - Constitutional Vitals: Temp Pulse Resp BP Pulse Ox 97.6 F 137 H 18 140/103 100 09/20/21 08:16 09/20/21 08:16 09/20/21 10:00 09/20/21 08:16 09/20/21 10:00 General appearance: Present: no acute distress, well-nourished - EENT Eyes: Present: PERRL, EOM intact - Neck Neck: Present: supple, normal ROM - Respiratory Respiratory effort: normal Respiratory: bilateral: diminished, negative: rales, rhonchi, wheezing - Cardiovascular Rhythm: regular Heart Sounds: Present: S1 & S2 - Extremities Extremities: no ischemia, No edema - Abdominal General gastrointestinal: soft, non-tender, non-distended, normal bowel sounds - Integumentary Integumentary: Present: clear, warm - Psychiatric Psychiatric: appropriate mood/affect, cooperative - Neurologic Neurologic: moves all extremities Results - Labs CBC & Chem 7: 09/21/21 05:37 09/19/21 05:58 Labs: Laboratory Last Values WBC 15.7 K/mm3 (4.5-11.0) H 09/20/21 11:36 RBC 4.96 M/mm3 (3.65-5.03) 09/20/21 11:36 Hgb 14.7 gm/dl (10.1-14.3) H 09/20/21 11:36 Hct 43.9 % (30.3-42.9) H 09/20/21 11:36 MCV 88 fl (79-97) 09/20/21 11:36 MCH 30 pg (28-32) 09/20/21 11:36 MCHC 33 % (30-34) 09/20/21 11:36 RDW 13.6 % (13.2-15.2) 09/20/21 11:36 Plt Count 335 K/mm3 (140-440) 09/20/21 11:36 Lymph % (Auto) 11.8 % (13.4-35.0) L 09/20/21 11:36 [place] % (Auto) 5.1 % (0.0-7.3) 09/20/21 11:36 Eos % (Auto) 1.4 % (0.0-4.3) 09/20/21 11:36 Baso % (Auto) 1.4 % (0.0-1.8) 09/20/21 11:36 Lymph # (Auto) 1.8 K/mm3 (1.2-5.4) 09/20/21 11:36 [place] # (Auto) 0.8 K/mm3 (0.0-0.8) 09/20/21 11:36 Eos # (Auto) 0.2 K/mm3 (0.0-0.4) 09/20/21 11:36 Baso # (Auto) 0.2 K/mm3 (0.0-0.1) H 09/20/21 11:36 Add Manual Diff Complete 09/13/21 05:22 Total Counted 100 09/13/21 05:22 Seg Neutrophils % 80.3 % (40.0-70.0) H 09/20/21 11:36 Seg Neuts % (Manual) 76.0 % (40.0-70.0) H 09/13/21 05:22 Band Neutrophils % 0 % 09/13/21 05:22 Lymphocytes % (Manual) 10.0 % (13.4-35.0) L 09/13/21 05:22 Reactive Lymphs % (Man) 0 % 09/13/21 05:22 Monocytes % (Manual) 6.0 % (0.0-7.3) 09/13/21 05:22 Eosinophils % (Manual) 4.0 % (0.0-4.3) 09/13/21 05:22 Basophils % (Manual) 1.0 % (0.0-1.8) 09/13/21 05:22 Metamyelocytes % 3.0 % 09/13/21 05:22 Myelocytes % 0 % 09/13/21 05:22 Promyelocytes % 0 % 09/13/21 05:22 Blast Cells % 0 % 09/13/21 05:22 Nucleated RBC % Not Reportable 09/13/21 05:22 Seg Neutrophils # 12.6 K/mm3 (1.8-7.7) H 09/20/21 11:36 Seg Neutrophils # Man 10.4 K/mm3 (1.8-7.7) H 09/13/21 05:22 Band Neutrophils # 0.0 K/mm3 09/13/21 05:22 Lymphocytes # (Manual) 1.4 K/mm3 (1.2-5.4) 09/13/21 05:22 Abs React Lymphs (Man) 0.0 K/mm3 09/13/21 05:22 Monocytes # (Manual) 0.8 K/mm3 (0.0-0.8) 09/13/21 05:22 Eosinophils # (Manual) 0.5 K/mm3 (0.0-0.4) H 09/13/21 05:22 Basophils # (Manual) 0.1 K/mm3 (0.0-0.1) 09/13/21 05:22 Metamyelocytes # 0.4 K/mm3 09/13/21 05:22 Myelocytes # 0.0 K/mm3 09/13/21 05:22 Promyelocytes # 0.0 K/mm3 09/13/21 05:22 Blast Cells # 0.0 K/mm3 09/13/21 05:22 WBC Morphology Not Reportable 09/13/21 05:22 Hypersegmented Neuts Not Reportable 09/13/21 05:22 Hyposegmented Neuts Not Reportable 09/13/21 05:22 Hypogranular Neuts Not Reportable 09/13/21 05:22 Smudge Cells Not Reportable 09/13/21 05:22 Toxic Granulation Not Reportable 09/13/21 05:22 Toxic Vacuolation Not Reportable 09/13/21 05:22 Dohle Bodies Not Reportable 09/13/21 05:22 Pelger-Huet Anomaly Not Reportable 09/13/21 05:22 Jeannine Rods Not Reportable 09/13/21 05:22 Platelet Estimate Consistent w auto 09/13/21 05:22 Clumped Platelets Not Reportable 09/13/21 05:22 Plt Clumps, EDTA Not Reportable 09/13/21 05:22 Large Platelets Rare 09/13/21 05:22 Giant Platelets Not Reportable 09/13/21 05:22 Platelet Satelliting Not Reportable 09/13/21 05:22 Plt Morphology Comment Not Reportable 09/13/21 05:22 RBC Morphology Not Reportable 09/13/21 05:22 Dimorphic RBCs Not Reportable 09/13/21 05:22 Polychromasia Not Reportable 09/13/21 05:22 Hypochromasia Not Reportable 09/13/21 05:22 Poikilocytosis Few 09/13/21 05:22 Anisocytosis Few 09/13/21 05:22 Microcytosis Not Reportable 09/13/21 05:22 Macrocytosis Not Reportable 09/13/21 05:22 Spherocytes Not Reportable 09/13/21 05:22 Pappenheimer Bodies Not Reportable 09/13/21 05:22 Sickle Cells Not Reportable 09/13/21 05:22 Target Cells Not Reportable 09/13/21 05:22 Tear Drop Cells Rare 09/13/21 05:22 Ovalocytes Rare 09/13/21 05:22 Helmet Cells Rare 09/13/21 05:22 [place] Bodies Not Reportable 09/13/21 05:22 Ewing Rings Not Reportable 09/13/21 05:22 Bryce Cells Not Reportable 09/13/21 05:22 Bite Cells Not Reportable 09/13/21 05:22 Crenated Cell Not Reportable 09/13/21 05:22 Elliptocytes Not Reportable 09/13/21 05:22 Acanthocytes (Spur) Not Reportable 09/13/21 05:22 Rouleaux Not Reportable 09/13/21 05:22 Hemoglobin C Crystals Not Reportable 09/13/21 05:22 Schistocytes Not Reportable 09/13/21 05:22 Malaria parasites Not Reportable 09/13/21 05:22 Peter Bodies Not Reportable 09/13/21 05:22 Hem Pathologist Commnt No 09/13/21 05:22 Sodium 141 mmol/L (137-145) 09/19/21 05:58 Potassium 4.0 mmol/L (3.6-5.0) 09/19/21 05:58 Chloride 104.7 mmol/L (98-107) 09/19/21 05:58 Carbon Dioxide 23 mmol/L (22-30) 09/19/21 05:58 Anion Gap 17 mmol/L 09/19/21 05:58 BUN 9 mg/dL (7-17) 09/19/21 05:58 Creatinine 0.6 mg/dL (0.6-1.2) 09/19/21 05:58 Estimated GFR > 60 ml/min 09/19/21 05:58 BUN/Creatinine Ratio 15 % 09/19/21 05:58 Glucose 116 mg/dL (65-100) H 09/19/21 05:58 POC Glucose 182 mg/dL (70-105) H 09/10/21 18:23 Calcium 9.8 mg/dL (8.4-10.2) 09/19/21 05:58 Phosphorus 3.00 mg/dL (2.5-4.5) 09/11/21 04:40 Magnesium 2.20 mg/dL (1.7-2.3) 09/11/21 04:40 Total Bilirubin 0.80 mg/dL (0.1-1.2) 09/12/21 05:11 AST 73 units/L (5-40) H 09/12/21 05:11 ALT 77 units/L (7-56) H 09/12/21 05:11 Alkaline Phosphatase 92 units/L (35-129) 09/12/21 05:11 Total Creatine Kinase 833 units/L (30-135) H 09/13/21 05:22 Total Protein 6.3 g/dL (6.3-8.2) 09/12/21 05:11 Albumin 3.5 g/dL (3.9-5) L 09/12/21 05:11 Albumin/Globulin Ratio 1.3 % 09/12/21 05:11 HCG, Quant < 2 mIU/mL (0-4) 09/08/21 19:35 Urine Color Yellow (Yellow) 09/14/21 Unknown Urine Turbidity Clear (Clear) 09/14/21 Unknown Urine pH 7.5 (5.0-7.0) H 09/14/21 Unknown Ur Specific [place] 1.005 (1.003-1.030) 09/14/21 Unknown Urine Protein <15 mg/dl mg/dL (Negative) 09/14/21 Unknown Urine Glucose (UA) Negative mg/dL (Negative) 09/14/21 Unknown Urine Ketones Negative mg/dL (Negative) 09/14/21 Unknown Urine Blood Moderate (Negative) A 09/14/21 Unknown Urine Nitrite Negative (Negative) 09/14/21 Unknown Ur Reducing Substances Not Reportable 09/13/21 17:43 Urine Bilirubin Moderate (Negative) 09/14/21 Unknown Urine Ictotest Positive (Negative) 09/14/21 Unknown Urine Urobilinogen < 2.0 mg/dL (<2.0) 09/14/21 Unknown Ur Leukocyte Esterase Moderate (Negative) 09/14/21 Unknown Urine WBC (Auto) 14.0 /HPF (0.0-6.0) H 09/14/21 Unknown Urine RBC (Auto) 32.0 /HPF (0.0-6.0) 09/14/21 Unknown U Epithel Cells (Auto) 2.0 /HPF (0-13.0) 09/14/21 Unknown Hyaline Casts 6 /LPF 09/14/21 Unknown Urine Mucus Few /HPF 09/14/21 Unknown Urine Yeast (Budding) 3+ /HPF 09/14/21 Unknown Salicylates < 0.3 mg/dL (2.8-20.0) L 09/08/21 19:35 Urine Opiates Screen Negative 09/13/21 17:43 Urine Methadone Screen Negative 09/13/21 17:43 Acetaminophen 5.0 ug/mL (10.0-30.0) L 09/08/21 19:35 Ur Barbiturates Screen Negative 09/13/21 17:43 Ur Phencyclidine Scrn Negative 09/13/21 17:43 Ur Amphetamines Screen Negative 09/13/21 17:43 U Benzodiazepines Scrn Negative 09/13/21 17:43 Urine Cocaine Screen Negative 09/13/21 17:43 U Marijuana (THC) Screen Negative 09/13/21 17:43 Drugs of Abuse Note Disclamer 09/13/21 17:43 Plasma/Serum Alcohol < 0.01 % (0-0.07) 09/08/21 19:35 SARS-CoV-2 (PCR) Negative (Negative) 09/13/21 15:10 Hepatitis A IgM Ab Non-reactive (NonReactive) 09/10/21 05:16 Hep Bs Antigen Non-reactive (Negative) 09/10/21 05:16 Hep B Core IgM Ab Non-reactive (NonReactive) 09/10/21 05:16 Hepatitis C Antibody Non-reactive (NonReactive) 09/10/21 05:16 Pined[place]/IV: Voiding Method Toilet Active Medications - Current Medications Current Medications: Generic Name Dose Route Start Last Admin Trade Name Freq PRN Reason Stop Dose Admin Acetaminophen 650 mg 09/08/21 22:08 Acetaminophen 325 Mg Tab PO Q4H PRN Pain MILD(1-3)/Fever >100.5/JERONIMO Albuterol 2.5 mg 09/08/21 22:08 Albuterol 2.5 Mg/3 Ml Nebu IH Q3HRT PRN Shortness Of Breath Aripiprazole 5 mg 09/09/21 13:00 09/20/21 09:21 Aripiprazole 5 Mg Tab PO 5 mg QDAY SAMANTHA Administration Citalopram Hydrobromide 20 mg 09/13/21 12:00 09/20/21 09:22 Citalopram 20 Mg Tab PO 20 mg QDAY SAMANTHA Administration Doxepin HCl 25 mg 09/10/21 22:00 09/19/21 23:34 Doxepin 25 Mg Cap PO 25 mg QHS SAMANTHA Administration Doxycycline Hyclate 100 mg 09/20/21 10:00 09/20/21 14:29 Doxycycline 100 Mg Cap PO 09/26/21 22:01 100 mg BID SAMANTHA Administration Protocol Enoxaparin Sodium 40 mg 09/09/21 10:00 09/20/21 09:22 Enoxaparin 40 Mg/0.4 Ml Inj SUB-Q 40 mg DAILY SAMANTHA Administration Protocol Famotidine 20 mg 09/10/21 10:00 09/20/21 09:22 Famotidine 20 Mg Tab PO 20 mg BID SAMANTHA Administration Fluconazole 200 mg 09/21/21 10:00 Fluconazole 100 Mg/10 Ml Oral Syringe PO 10/04/21 10:01 QDAY SAMANTHA Protocol Gabapentin 300 mg 09/10/21 14:00 09/20/21 14:28 Gabapentin 300 Mg Cap PO 300 mg Q8HR SAMANTHA Administration Hydroxyzine Pamoate 50 mg 09/10/21 11:00 09/20/21 09:21 Hydroxyzine Pamoate 50 Mg Cap PO 50 mg BID SAMANTHA Administration Levetiracetam 750 mg 09/13/21 10:00 09/20/21 09:21 Levetiracetam 500 Mg Tab PO 750 mg BID SAMANTHA Administration Lorazepam 2 mg 09/10/21 18:27 09/11/21 12:50 Lorazepam 2 Mg/Ml Vial IV 2 mg Q4H PRN Administration Seizures Mirtazapine 7.5 mg 09/13/21 22:00 09/19/21 23:34 Mirtazapine 15 Mg Tab PO 7.5 mg QHS SAMANTHA Administration Morphine Sulfate 2 mg 09/08/21 22:08 Morphine 2 Mg/1 Ml Inj IV Q4H PRN Pain, Moderate (4-6) Morphine Sulfate 4 mg 09/08/21 22:08 Morphine 4 Mg/1 Ml Inj IV Q4H PRN Pain , Severe (7-10) Naloxone HCl 0.1 mg 09/08/21 18:20 Naloxone 0.4 Mg/1 Ml Inj IV Q2MIN PRN Res Rate </= 8 or 02 SAT < 92% Sodium Chloride 10 ml 09/09/21 10:00 09/20/21 09:22 Sodium Chloride 0.9% 10 Ml Flush Syringe IV 10 ml BID SAMANTHA Administration Sodium Chloride 10 ml 09/08/21 22:08 Sodium Chloride 0.9% 10 Ml Flush Syringe IV PRN PRN LINE FLUSH Nutrition/Malnutrition Assess - Dietary Evaluation Nutrition/Malnutrition Findings: Nutrition Notes Start: 09/15/21 12:06 Freq: Status: Active Protocol: Document 09/20/21 12:25 ROSELINE (Rec: 09/20/21 12:44 ROSELINE [id number]) Nutrition Notes Initial or Follow up Brief Note Other Pertinent Diagnosis Polysubstance Dependence/ Status 1013, UTI, Leukocytosis , Depression, Seizur Current Diet GI Soft Diet (since L 09/15). 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 0.3 Kg body weight loss reported in 1 week. Weight Status Overweight Subjective/Other Information RD consult for routine F/U on Dietary advancement. Diet continues as prescribed, Pt's PO intake of meals has been Good (75-100%) and well tolerated, according to ADL notes. Pt is on Room Air, O2 saturation @ 100%, according to Physical Assessment History notes. Plans for discharge to Psychiatry on 09/22, depending on lab results, according to Progress notes. Percent of energy/protein needs met: Prescribed GI Soft Diet provides for energy/protein needs (2,000 Kcal/82 g) during LOS. #1 Nutrition Diagnosis Inadequate protein-energy intake Comments: Diet continues as prescribed, Pt's PO intake of meals has been Good (75-100%) and well tolerated, according to ADL notes. Diagnosis Progress(for reassessment Resolved documentation) Is patient on ventilator? No Is Patient Ambulatory and/or Out of Bed Yes REE-([place]. or-ambulatory/OOB) [ 1959.919 [id number]] Calculation Used for Recommendations [place] Additional Notes Protein: 0.8-1 g/Kg ABW; 63-79 g/day. Fluids: 1 ml/Kcal, or as per MD. Nutrition Intervention Change Diet Order: Continue GI Soft Diet. Goal #1 Adjust the dietary intervention to better serve Pt's needs and clinical conditions during LOS. Follow-Up By: 09/27/21 Additional Comments Continue monitoring food tolerance, %PO intake of meals , and BM.
[2021-09-20] MEDS: MIRTAZAPINE 15 MG TAB PO SCH (21:51)
[2021-09-20] MEDS: DOXEPIN 25 MG CAP PO SCH (21:52)
[2021-09-21] MEDS: GABAPENTIN 300 MG CAP PO SCH ×3 (05:54→21:38)
[2021-09-21 06:41] LABS: Basophils # (Auto) 0.2 K/mm3 (0.0-0.1); Basophils % (Auto) 1.9 % (0.0-1.8); Eosinophils # (Auto) 0.3 K/mm3 (0.0-0.4); Eosinophils % (Auto) 2.4 % (0.0-4.3); Hematocrit 42.6 % (30.3-42.9); Hemoglobin 14.3 gm/dl (10.1-14.3); Lymphocytes # (Auto) 2.1 K/mm3 (1.2-5.4); Lymphocytes % (Auto) 18.5 % (13.4-35.0); Mean Corpuscular HGB Conc 34 % (30-34); Mean Corpuscular Volume 89 fl (79-97); Monocytes # (Auto) 0.6 K/mm3 (0.0-0.8); Monocytes % (Auto) 5.7 % (0.0-7.3); Platelet Count 303 K/mm3 (140-440); Red Blood Count 4.78 M/mm3 (3.65-5.03)
[2021-09-21] MEDS: levETIRAcetam 500 MG TAB PO SCH ×2 (09:24→21:38)
[2021-09-21] MEDS: DOXYCYCLINE 100 MG CAP PO SCH ×2 (09:24→21:37)
[2021-09-21] MEDS: ENOXAPARIN 40 MG/0.4 ML INJ SUB-Q SCH (09:24)
[2021-09-21] MEDS: ARIPiprazole 5 MG TAB PO SCH (09:24)
[2021-09-21] MEDS: CITALOPRAM 20 MG TAB PO SCH (09:24)
[2021-09-21] MEDS: FAMOTIDINE 20 MG TAB PO SCH ×2 (09:24→21:38)
[2021-09-21] MEDS ORDERED: FLUCONAZOLE 100 MG/10 ML ORAL SYRINGE PO SCH (10:00)
[2021-09-21] MEDS: FLUCONAZOLE 200 MG TAB PO SCH (10:43)
--- NOTE | 2021-09-21 15:26 | Progress Note ---
Subjective - Reason for Consult Reason for consult: MHE - Chief Complaint Chief complaint: Date of service: 09/21/21 Patient seen, WBC down to 11.4. Waiting for it to go down more for placement. Patient still teary. Date of service: 09/20/21 Patient seen today teary and states that she would like to go for rehab and is worried she would go back to heroin if released without rehab. Patients WBC continues to be elevated preventing patient placement at this time. Recommending inpatient. Date of service: 09/19/21 Patient seen today out of bed. Patient able to verbalize and respond when asked a questions. Patient states her depression is at a 5/10 and denies any SI/HI/AVH at this time. Patient waiting placement pending lab results. Date of service: 09/18/21 patient seen today. No changes at this time. Date of service: 09/17/21 Patient seen today on the floor. Patient observed to nodding and shaking head when asked a question. Patient asked to verbalize and she agreed to it. Patient denies SI/HI/AVH, but admits to having depression of a 7/10. Patient states she is sleeping and eating well. DATE SEEN: 09/16/21 Patient seen today. Patient mostly nods to questions asked. Patient did answer that on a scale of 1/10 her depression is a 6. Per nursing staff patient takes off all her clothes and anything that she is hooked on to whenever she needs to go the bathroom and lays back down without her clothes. Patient denies having any SI/HI/AVH at this time. Patient waiting on inpatient placement. 09/15/21 Patient seen today in her room. Patient States that she is "doing good" Patient states that she recently lost her boyfriend of 15 years to drug overdose, and states that what triggered her episode. Patient has a hx of using heroine and states she uses it 6-7x daily. Admits last usage was just before she was brought in. Patient currently denies any SI/HI/AVH. Patient is awaiting placement at this time. The patient was seen today. She continues to be withdrawn, and quiet with flat affect. She doesn't really talk, but answers questions with one words or by nodding or shaking her head. The patient endorses hopelessness, and being depressed. She does deny SI/HI. I ask her what was going through her mind at present, she just stares at me and shakes her head. Will continue recommendation for inpatient treatment. The patient expresses hopelessness, and has passive suicidal thoughts. If discharged she runs the risk of deterioration of her mental health. The patient will be referred to a psychiatric facility once medically clear. ROS: Constitutional: Negative for weight loss ENT: Negative for stridor Respiratory: Negative for cough or hemoptysis All other systems reviewed and are negative MENTAL STATUS General Appearance and Behavior: age appropriate, evasive, guarded, poor eye contact, withdrawn Psychomotor Behavior: within normal limits Mood: depressed Affect and affective range: flat Thought Process: thought blocking Thought Content: hopelessness Speech: Normal volume and Regular rate and rhythm Suicidal Ideation: passive Homicidal Ideation: Denies HI Hallucinations: Denies Impulse Control: impaired Insight and Judgment: poor Memory: poor Attention: poor Orientation: alert Assessment Opiate Overdose Major Depressive Disorder Treatment Plan 1013 Celexa 20mg po daily Remeron 7.5mg po to induce appetite. Doxepin 25mg po qhs Gabapentin 300mg po q8h Abilify 5mg po daily Vistaril 50mg po BID Medical: per primary Sitter: defer to primary Disposition: Recommend acute psychiatric inpatient treatment Will follow. Thanks. Case staffed by Dr. Urena Mental Status Exam - Vital signs Last Vital Signs Temp 98.9 F 09/21/21 11:48 Pulse 128 H 09/21/21 11:48 Resp 20 09/21/21 11:48 BP 132/93 09/21/21 11:48 Pulse Ox 97 09/21/21 11:48
[2021-09-21] MEDS: DOXEPIN 25 MG CAP PO SCH (21:38)
[2021-09-21] MEDS: MIRTAZAPINE 15 MG TAB PO SCH (21:38)
[2021-09-22] MEDS: GABAPENTIN 300 MG CAP PO SCH ×2 (07:13→13:38)
--- NOTE | 2021-09-22 12:50 | Progress Note ---
Assessment and Plan Assessment and plan: Patient is medically cleared for discharge. --Opioid overdose; Symptoms resolved --Major depressive disorder Continue Celexa, doxepin, gabapentin, Abilify, Vistaril. Psychiatry following. Management per psych ,recommendations acute inpatient psychiatric treatment --Polysubstance abuse Counseling done patient strongly advised to quit substance abuse Advised to seek drug detox and rehabilitation Verbalized understanding --1013 status According to patient's mother and chart review, the patient has been snorting heroin for 10 years. Patient was found unresponsive at home by family and EMS was called. Patient will begin to undergo opioid withdrawal while being hospitalized. Continue supportive management. Psychiatry consulted; appreciate recs. Patient placed under 1013. -Patient engages in the following substances: Heroin -Counseled patient about the importance of cessation of substance abuse. Offered resources to help with quitting. Patient expresses understanding. -Time: +15 mins --Seizures Ativan as needed for breakthrough seizure. Continue p.o. keppra 750mg BID. Seizure precautions, do not drive until cleared by neurologist --Rhabdomyolysis-resolved Creatine kinase 5143-->7274-->4537--> 2341-->833 Likely secondary to opioid overdose and patient being found unresponsive at home. Encouraging p.o. intake. Continue to trend creatine kinase. --Urinary tract infection/Cherie albicans, Enterococcus faecalis Status post Rocephin Urine cultures Cherie albicans, patient is worsening leukocytosis Start Diflucan 200 mg daily for 14 days Enterococcus faecalis, sensitive to doxycycline Check with ID for choice of antibiotics and length of treatment --Sepsis due to urinary tract infection Continue current antibiotics, antifungal --leukocytosis WBC worsening 14K --11.8-15.7-11.4 Stress related as well as due to sepsis due to UTI Patient was denied acute inpatient psychiatric admission due to leukocytosis. Treat underlying cause , patient is receiving antibiotics for UTI Chest x-ray negative --Elevated transaminasesresolved Possibly secondary to substance abuse. Unremarkable acute hepatitis panel. --Metabolic acidosisresolved --Hypokalemia Resolved --DVT prophylaxis; Subcu Lovenox DC planning per case management Closely monitor the patient and adjust management as needed Plan of care reviewed with the patient and her nurse as well as the case management Possible discharge in 1 to 2 days if stable Follow morning labs and psych recommendations. Possible discharge in 1 to 2 days if stable 09/19/2019; patient continues to have leukocytosis 11.8 Receiving antibiotics for urinary tract infection, 1013 status Psych inpatient psych placement 09/19; patient's WBC increased to 12.2 Patient remains 1013 status 09/20; patient started on doxycycline and Diflucan Check ID for choice of antibiotics and duration of treatment Plan of care reviewed with the patient and her nurse Psych recommendations noted and appreciated 09/21; patient is medically stable for discharge On oral antibiotics for her UTI Elevated WBC secondary to urinary tract infection and partly stress related No contraindication for discharge Disposition per psych History Interval history: Patient is medically cleared for discharge Hospitalist Physical - Constitutional Vitals: Temp Pulse Resp BP Pulse Ox 98.2 F 103 H 18 126/77 98 09/22/21 04:41 09/22/21 04:41 09/22/21 04:41 09/22/21 04:41 09/22/21 04:41 General appearance: Present: no acute distress, well-nourished Results - Labs CBC & Chem 7: 09/21/21 05:37 09/19/21 05:58 Labs: Laboratory Last Values WBC 11.4 K/mm3 (4.5-11.0) H 09/21/21 05:37 RBC 4.78 M/mm3 (3.65-5.03) 09/21/21 05:37 Hgb 14.3 gm/dl (10.1-14.3) 09/21/21 05:37 Hct 42.6 % (30.3-42.9) 09/21/21 05:37 MCV 89 fl (79-97) 09/21/21 05:37 MCH 30 pg (28-32) 09/21/21 05:37 MCHC 34 % (30-34) 09/21/21 05:37 RDW 14.0 % (13.2-15.2) 09/21/21 05:37 Plt Count 303 K/mm3 (140-440) 09/21/21 05:37 Lymph % (Auto) 18.5 % (13.4-35.0) 09/21/21 05:37 Arroyo % (Auto) 5.7 % (0.0-7.3) 09/21/21 05:37 Eos % (Auto) 2.4 % (0.0-4.3) 09/21/21 05:37 Baso % (Auto) 1.9 % (0.0-1.8) H 09/21/21 05:37 Lymph # (Auto) 2.1 K/mm3 (1.2-5.4) 09/21/21 05:37 Arroyo # (Auto) 0.6 K/mm3 (0.0-0.8) 09/21/21 05:37 Eos # (Auto) 0.3 K/mm3 (0.0-0.4) 09/21/21 05:37 Baso # (Auto) 0.2 K/mm3 (0.0-0.1) H 09/21/21 05:37 Add Manual Diff Complete 09/13/21 05:22 Total Counted 100 09/13/21 05:22 Seg Neutrophils % 71.5 % (40.0-70.0) H 09/21/21 05:37 Seg Neuts % (Manual) 76.0 % (40.0-70.0) H 09/13/21 05:22 Band Neutrophils % 0 % 09/13/21 05:22 Lymphocytes % (Manual) 10.0 % (13.4-35.0) L 09/13/21 05:22 Reactive Lymphs % (Man) 0 % 09/13/21 05:22 Monocytes % (Manual) 6.0 % (0.0-7.3) 09/13/21 05:22 Eosinophils % (Manual) 4.0 % (0.0-4.3) 09/13/21 05:22 Basophils % (Manual) 1.0 % (0.0-1.8) 09/13/21 05:22 Metamyelocytes % 3.0 % 09/13/21 05:22 Myelocytes % 0 % 09/13/21 05:22 Promyelocytes % 0 % 09/13/21 05:22 Blast Cells % 0 % 09/13/21 05:22 Nucleated RBC % Not Reportable 09/13/21 05:22 Seg Neutrophils # 8.2 K/mm3 (1.8-7.7) H 09/21/21 05:37 Seg Neutrophils # Man 10.4 K/mm3 (1.8-7.7) H 09/13/21 05:22 Band Neutrophils # 0.0 K/mm3 09/13/21 05:22 Lymphocytes # (Manual) 1.4 K/mm3 (1.2-5.4) 09/13/21 05:22 Abs React Lymphs (Man) 0.0 K/mm3 09/13/21 05:22 Monocytes # (Manual) 0.8 K/mm3 (0.0-0.8) 09/13/21 05:22 Eosinophils # (Manual) 0.5 K/mm3 (0.0-0.4) H 09/13/21 05:22 Basophils # (Manual) 0.1 K/mm3 (0.0-0.1) 09/13/21 05:22 Metamyelocytes # 0.4 K/mm3 09/13/21 05:22 Myelocytes # 0.0 K/mm3 09/13/21 05:22 Promyelocytes # 0.0 K/mm3 09/13/21 05:22 Blast Cells # 0.0 K/mm3 09/13/21 05:22 WBC Morphology Not Reportable 09/13/21 05:22 Hypersegmented Neuts Not Reportable 09/13/21 05:22 Hyposegmented Neuts Not Reportable 09/13/21 05:22 Hypogranular Neuts Not Reportable 09/13/21 05:22 Smudge Cells Not Reportable 09/13/21 05:22 Toxic Granulation Not Reportable 09/13/21 05:22 Toxic Vacuolation Not Reportable 09/13/21 05:22 Dohle Bodies Not Reportable 09/13/21 05:22 Pelger-Huet Anomaly Not Reportable 09/13/21 05:22 Jeannine Rods Not Reportable 09/13/21 05:22 Platelet Estimate Consistent w auto 09/13/21 05:22 Clumped Platelets Not Reportable 09/13/21 05:22 Plt Clumps, EDTA Not Reportable 09/13/21 05:22 Large Platelets Rare 09/13/21 05:22 Giant Platelets Not Reportable 09/13/21 05:22 Platelet Satelliting Not Reportable 09/13/21 05:22 Plt Morphology Comment Not Reportable 09/13/21 05:22 RBC Morphology Not Reportable 09/13/21 05:22 Dimorphic RBCs Not Reportable 09/13/21 05:22 Polychromasia Not Reportable 09/13/21 05:22 Hypochromasia Not Reportable 09/13/21 05:22 Poikilocytosis Few 09/13/21 05:22 Anisocytosis Few 09/13/21 05:22 Microcytosis Not Reportable 09/13/21 05:22 Macrocytosis Not Reportable 09/13/21 05:22 Spherocytes Not Reportable 09/13/21 05:22 Pappenheimer Bodies Not Reportable 09/13/21 05:22 Sickle Cells Not Reportable 09/13/21 05:22 Target Cells Not Reportable 09/13/21 05:22 Tear Drop Cells Rare 09/13/21 05:22 Ovalocytes Rare 09/13/21 05:22 Helmet Cells Rare 09/13/21 05:22 Palacios-Frankclay Bodies Not Reportable 09/13/21 05:22 Harris Rings Not Reportable 09/13/21 05:22 Mcrae Cells Not Reportable 09/13/21 05:22 Bite Cells Not Reportable 09/13/21 05:22 Crenated Cell Not Reportable 09/13/21 05:22 Elliptocytes Not Reportable 09/13/21 05:22 Acanthocytes (Spur) Not Reportable 09/13/21 05:22 Rouleaux Not Reportable 09/13/21 05:22 Hemoglobin C Crystals Not Reportable 09/13/21 05:22 Schistocytes Not Reportable 09/13/21 05:22 Malaria parasites Not Reportable 09/13/21 05:22 Peter Bodies Not Reportable 09/13/21 05:22 Hem Pathologist Commnt No 09/13/21 05:22 Sodium 141 mmol/L (137-145) 09/19/21 05:58 Potassium 4.0 mmol/L (3.6-5.0) 09/19/21 05:58 Chloride 104.7 mmol/L (98-107) 09/19/21 05:58 Carbon Dioxide 23 mmol/L (22-30) 09/19/21 05:58 Anion Gap 17 mmol/L 09/19/21 05:58 BUN 9 mg/dL (7-17) 09/19/21 05:58 Creatinine 0.6 mg/dL (0.6-1.2) 09/19/21 05:58 Estimated GFR > 60 ml/min 09/19/21 05:58 BUN/Creatinine Ratio 15 % 09/19/21 05:58 Glucose 116 mg/dL (65-100) H 09/19/21 05:58 POC Glucose 182 mg/dL (70-105) H 09/10/21 18:23 Calcium 9.8 mg/dL (8.4-10.2) 09/19/21 05:58 Phosphorus 3.00 mg/dL (2.5-4.5) 09/11/21 04:40 Magnesium 2.20 mg/dL (1.7-2.3) 09/11/21 04:40 Total Bilirubin 0.80 mg/dL (0.1-1.2) 09/12/21 05:11 AST 73 units/L (5-40) H 09/12/21 05:11 ALT 77 units/L (7-56) H 09/12/21 05:11 Alkaline Phosphatase 92 units/L (35-129) 09/12/21 05:11 Total Creatine Kinase 833 units/L (30-135) H 09/13/21 05:22 Total Protein 6.3 g/dL (6.3-8.2) 09/12/21 05:11 Albumin 3.5 g/dL (3.9-5) L 09/12/21 05:11 Albumin/Globulin Ratio 1.3 % 09/12/21 05:11 HCG, Quant < 2 mIU/mL (0-4) 09/08/21 19:35 Urine Color Yellow (Yellow) 09/14/21 Unknown Urine Turbidity Clear (Clear) 09/14/21 Unknown Urine pH 7.5 (5.0-7.0) H 09/14/21 Unknown Ur Specific [place] 1.005 (1.003-1.030) 09/14/21 Unknown Urine Protein <15 mg/dl mg/dL (Negative) 09/14/21 Unknown Urine Glucose (UA) Negative mg/dL (Negative) 09/14/21 Unknown Urine Ketones Negative mg/dL (Negative) 09/14/21 Unknown Urine Blood Moderate (Negative) A 09/14/21 Unknown Urine Nitrite Negative (Negative) 09/14/21 Unknown Ur Reducing Substances Not Reportable 09/13/21 17:43 Urine Bilirubin Moderate (Negative) 09/14/21 Unknown Urine Ictotest Positive (Negative) 09/14/21 Unknown Urine Urobilinogen < 2.0 mg/dL (<2.0) 09/14/21 Unknown Ur Leukocyte Esterase Moderate (Negative) 09/14/21 Unknown Urine WBC (Auto) 14.0 /HPF (0.0-6.0) H 09/14/21 Unknown Urine RBC (Auto) 32.0 /HPF (0.0-6.0) 09/14/21 Unknown U Epithel Cells (Auto) 2.0 /HPF (0-13.0) 09/14/21 Unknown Hyaline Casts 6 /LPF 09/14/21 Unknown Urine Mucus Few /HPF 09/14/21 Unknown Urine Yeast (Budding) 3+ /HPF 09/14/21 Unknown Salicylates < 0.3 mg/dL (2.8-20.0) L 09/08/21 19:35 Urine Opiates Screen Negative 09/13/21 17:43 Urine Methadone Screen Negative 09/13/21 17:43 Acetaminophen 5.0 ug/mL (10.0-30.0) L 09/08/21 19:35 Ur Barbiturates Screen Negative 09/13/21 17:43 Ur Phencyclidine Scrn Negative 09/13/21 17:43 Ur Amphetamines Screen Negative 09/13/21 17:43 U Benzodiazepines Scrn Negative 09/13/21 17:43 Urine Cocaine Screen Negative 09/13/21 17:43 U Marijuana (THC) Screen Negative 09/13/21 17:43 Drugs of Abuse Note Disclamer 09/13/21 17:43 Plasma/Serum Alcohol < 0.01 % (0-0.07) 09/08/21 19:35 SARS-CoV-2 (PCR) Negative (Negative) 09/13/21 15:10 Hepatitis A IgM Ab Non-reactive (NonReactive) 09/10/21 05:16 Hep Bs Antigen Non-reactive (Negative) 09/10/21 05:16 Hep B Core IgM Ab Non-reactive (NonReactive) 09/10/21 05:16 Hepatitis C Antibody Non-reactive (NonReactive) 09/10/21 05:16 Pinedo/IV: Voiding Method Toilet Active Medications - Current Medications Current Medications: Generic Name Dose Route Start Last Admin Trade Name Freq PRN Reason Stop Dose Admin Acetaminophen 650 mg 09/08/21 22:08 Acetaminophen 325 Mg Tab PO Q4H PRN Pain MILD(1-3)/Fever >100.5/JERONIMO Albuterol 2.5 mg 09/08/21 22:08 Albuterol 2.5 Mg/3 Ml Nebu IH Q3HRT PRN Shortness Of Breath Aripiprazole 5 mg 09/09/21 13:00 09/21/21 09:24 Aripiprazole 5 Mg Tab PO 5 mg QDAY SAMANTHA Administration Citalopram Hydrobromide 20 mg 09/13/21 12:00 09/21/21 09:24 Citalopram 20 Mg Tab PO 20 mg QDAY SAMANTHA Administration Doxepin HCl 25 mg 09/10/21 22:00 09/21/21 21:38 Doxepin 25 Mg Cap PO 25 mg QHS SAMANTHA Administration Doxycycline Hyclate 100 mg 09/20/21 10:00 09/21/21 21:37 Doxycycline 100 Mg Cap PO 09/26/21 22:01 100 mg BID SAMANTHA Administration Protocol Enoxaparin Sodium 40 mg 09/09/21 10:00 09/21/21 09:24 Enoxaparin 40 Mg/0.4 Ml Inj SUB-Q 40 mg DAILY SAMANTHA Administration Protocol Famotidine 20 mg 09/10/21 10:00 09/21/21 21:38 Famotidine 20 Mg Tab PO 20 mg BID SAMANTHA Administration Fluconazole 200 mg 09/21/21 11:00 09/21/21 10:43 Fluconazole 200 Mg Tab PO 10/04/21 10:01 200 mg QDAY SAMANTHA Administration Protocol Gabapentin 300 mg 09/10/21 14:00 09/22/21 07:13 Gabapentin 300 Mg Cap PO 300 mg Q8HR SAMANTHA Administration Hydroxyzine Pamoate 50 mg 09/10/21 11:00 09/21/21 21:38 Hydroxyzine Pamoate 50 Mg Cap PO 50 mg BID SAMANTHA Administration Levetiracetam 750 mg 09/13/21 10:00 09/21/21 21:38 Levetiracetam 500 Mg Tab PO 750 mg BID SAMANTHA Administration Lorazepam 2 mg 09/10/21 18:27 09/11/21 12:50 Lorazepam 2 Mg/Ml Vial IV 2 mg Q4H PRN Administration Seizures Mirtazapine 7.5 mg 09/13/21 22:00 09/21/21 21:38 Mirtazapine 15 Mg Tab PO 7.5 mg QHS SAMANTHA Administration Morphine Sulfate 2 mg 09/08/21 22:08 Morphine 2 Mg/1 Ml Inj IV Q4H PRN Pain, Moderate (4-6) Morphine Sulfate 4 mg 09/08/21 22:08 Morphine 4 Mg/1 Ml Inj IV Q4H PRN Pain , Severe (7-10) Naloxone HCl 0.1 mg 09/08/21 18:20 Naloxone 0.4 Mg/1 Ml Inj IV Q2MIN PRN Res Rate </= 8 or 02 SAT < 92% Sodium Chloride 10 ml 09/09/21 10:00 09/21/21 21:38 Sodium Chloride 0.9% 10 Ml Flush Syringe IV 10 ml BID SAMANTHA Administration Sodium Chloride 10 ml 09/08/21 22:08 Sodium Chloride 0.9% 10 Ml Flush Syringe IV PRN PRN LINE FLUSH Nutrition/Malnutrition Assess - Dietary Evaluation Nutrition/Malnutrition Findings: Nutrition Notes Start: 09/15/21 12:06 Freq: Status: Active Protocol: Document 09/20/21 12:25 ROSELINE (Rec: 09/20/21 12:44 ROSELINE [id number]) Nutrition Notes Initial or Follow up Brief Note Other Pertinent Diagnosis Polysubstance Dependence/ Status 1013, UTI, Leukocytosis , Depression, Seizur Current Diet GI Soft Diet (since L 09/15). Height 5 ft 7 in Weight 79 kg [place] Body Weight (kg) 61.36 BMI 27.2 Intake Prior to Admission Good Weight change and time frame Pt denies having loss body weight [employer]. 0.3 Kg body weight loss reported in 1 week. Weight Status Overweight Subjective/Other Information RD consult for routine F/U on Dietary advancement. Diet continues as prescribed, Pt's PO intake of meals has been Good (75-100%) and well tolerated, according to ADL notes. Pt is on Room Air, O2 saturation @ 100%, according to Physical Assessment History notes. Plans for discharge to Psychiatry on 09/22, depending on lab results, according to Progress notes. Percent of energy/protein needs met: Prescribed GI Soft Diet provides for energy/protein needs (2,000 Kcal/82 g) during LOS. #1 Nutrition Diagnosis Inadequate protein-energy intake Comments: Diet continues as prescribed, Pt's PO intake of meals has been Good (75-100%) and well tolerated, according to ADL notes. Diagnosis Progress(for reassessment Resolved documentation) Is patient on ventilator? No Is Patient Ambulatory and/or Out of Bed Yes [facility] [ [id number] [id number]] Calculation Used for Recommendations [facility] Additional Notes Protein: 0.8-1 g/Kg ABW; 63-79 g/day. Fluids: 1 ml/Kcal, or as per MD. Nutrition Intervention Change Diet Order: Continue GI Soft Diet. Goal #1 Adjust the dietary intervention to better serve Pt's needs and clinical conditions during LOS. Follow-Up By: 09/27/21 Additional Comments Continue monitoring food tolerance, %PO intake of meals , and BM.
[2021-09-22] MEDS: levETIRAcetam 500 MG TAB PO SCH (13:37)
--- NOTE | 2021-09-22 13:37 | Discharge Summary ---
Providers - Providers Date of Admission: 09/08/21 22:08 Date of discharge: 09/22/21 Attending physician: SVEN MACE 09/08/21 22:10 psychiatry consult [Consult to Mental Health] [CONS] Routine Reason For Exam: Opioid overdose 09/11/21 06:25 Consult to Physician [CONS] Routine Comment: Consulting Provider: JOSEPH JENKINS Physician Instructions: Reason For Exam: Opoid withdrawal seizures 09/21/21 17:18 Physical Therapy Evaluation and Treat [CONS] Routine Comment: Reason For Exam: Evaluate and treat/discharge needs Primary care physician: SABINA AQUINO Hospitalization Condition: Good Hospital course: --Opioid overdose; Symptoms resolved --Major depressive disorder Continue Celexa, doxepin, gabapentin, Abilify, Vistaril. Psychiatry following. Management per psych ,recommendations acute inpatient psychiatric treatment --Polysubstance abuse Counseling done patient strongly advised to quit substance abuse Advised to seek drug detox and rehabilitation Verbalized understanding --1013 status According to patient's mother and chart review, the patient has been snorting heroin for 10 years. Patient was found unresponsive at home by family and EMS was called. Patient will begin to undergo opioid withdrawal while being hospitalized. Continue supportive management. Psychiatry consulted; appreciate recs. Patient placed under 1013. -Patient engages in the following substances: Heroin -Counseled patient about the importance of cessation of substance abuse. Offered resources to help with quitting. Patient expresses understanding. -Time: +15 mins --Seizures Ativan as needed for breakthrough seizure. Continue p.o. keppra 750mg BID. Seizure precautions, do not drive until cleared by neurologist --Rhabdomyolysis-resolved Creatine kinase 5143-->7274-->4537--> 2341-->833 Likely secondary to opioid overdose and patient being found unresponsive at home. Encouraging p.o. intake. Continue to trend creatine kinase. --Urinary tract infection/Cherie albicans, Enterococcus faecalis Status post Rocephin Urine cultures Cherie albicans, patient is worsening leukocytosis Start Diflucan 200 mg daily for 14 days Enterococcus faecalis, sensitive to doxycycline Check with ID for choice of antibiotics and length of treatment --Sepsis due to urinary tract infection Continue current antibiotics, antifungal --leukocytosis WBC worsening 14K --11.8-15.7-11.4 Stress related as well as due to sepsis due to UTI Patient was denied acute inpatient psychiatric admission due to leukocytosis. Treat underlying cause , patient is receiving antibiotics for UTI Chest x-ray negative --Elevated transaminasesresolved Possibly secondary to substance abuse. Unremarkable acute hepatitis panel. --Metabolic acidosisresolved --Hypokalemia Resolved --DVT prophylaxis; Subcu Lovenox Disposition: 01 HOME / SELF CARE / HOMELESS Time spent for discharge: 35 min Core Measure Documentation - Palliative Care Palliative Care/ Comfort Measures: Not Applicable - Core Measures Any of the following diagnoses?: none Exam - Constitutional Vitals: Temp Pulse Resp BP Pulse Ox 98.2 F 103 H 18 126/77 98 09/22/21 04:41 09/22/21 04:41 09/22/21 04:41 09/22/21 04:41 09/22/21 04:41 General appearance: Present: no acute distress, well-nourished - EENT Eyes: Present: PERRL, EOM intact - Neck Neck: Present: supple, normal ROM - Respiratory Respiratory effort: normal Respiratory: bilateral: diminished, negative: rales, rhonchi, wheezing - Cardiovascular Rhythm: regular Heart Sounds: Present: S1 & S2 - Extremities Extremities: no ischemia, No edema - Abdominal General gastrointestinal: Present: soft, non-tender, non-distended, normal bowel sounds - Integumentary Integumentary: Present: clear, warm - Musculoskeletal Musculoskeletal: strength equal bilaterally - Psychiatric Psychiatric: appropriate mood/affect, cooperative - Neurologic Neurologic: moves all extremities Plan Activity: no restrictions Diet: regular Follow up with: [facility] [Provider Group] - 3-5 Days [facility] [Outside] - 3-5 Days [facility] [Outside] - 3-5 Days CHELSEY JOVEL MD [Staff Physician] - 7 Days Prescriptions: Fluconazole [Diflucan TAB] 200 mg PO QDAY #12 tablet Gabapentin 300 mg PO Q8HR #60 capsule levETIRAcetam [Keppra TAB] 750 mg PO BID #60 tablet Famotidine [Pepcid] 20 mg PO BID #60 tablet DOXYCYCLINE Hyclate [Vibramycin CAP] 100 mg PO BID #16 tab
[2021-09-22] MEDS: DOXYCYCLINE 100 MG CAP PO SCH (13:38)
[2021-09-22] MEDS: CITALOPRAM 20 MG TAB PO SCH (13:38)
[2021-09-22] MEDS: FLUCONAZOLE 200 MG TAB PO SCH (13:38)
[2021-09-22] MEDS: ARIPiprazole 5 MG TAB PO SCH (13:39)
[2021-09-22] MEDS: FAMOTIDINE 20 MG TAB PO SCH (13:40)
--- NOTE | 2021-09-22 13:43 | Progress Note ---
Subjective - Reason for Consult Consult date: 09/22/21 Reason for consult: OD - Chief Complaint Chief complaint: The patient was seen today. She presents much better. She is conversational, she makes good eye contact. The patient verbalizes feeling optimistic. 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 She says "it's time. And I know what I got to do. I have to get my life back." The patient denies SI/HI or hallucinations of any kind. Discussed with the patient's family about on going therapy, frequent psychiatry visits, drug rehab, compliance with medications and the need for family support. They verbalized agreement and understanding. ROS: Constitutional: Negative for weight loss ENT: Negative for stridor Respiratory: Negative for cough or hemoptysis All other systems reviewed and are negative MENTAL STATUS General Appearance and Behavior: age appropriate, calm, cooperative, good eye contact, conversational Psychomotor Behavior: within normal limits Mood: optimistic Affect and affective range: congruent with stated mood Thought Process: goal directed Thought Content: optimistic Speech: Normal volume and Regular rate and rhythm Suicidal Ideation: Denies Homicidal Ideation: Denies HI Hallucinations: Denies Impulse Control: Normal Insight and Judgment: Normal Memory: Limited Attention: attentive Orientation: alert/oriented Assessment Opiate Overdose Major Depressive Disorder Treatment Plan d/c 1013 Celexa 20mg po daily Remeron 7.5mg po to induce appetite. Doxepin 25mg po qhs Gabapentin 300mg po q8h Abilify 5mg po daily Vistaril 50mg po BID Medical: per primary Sitter: defer to primary Disposition: do not recommend acute psychiatric inpatient treatment. The patient understands that if SI/HI arise she is to seek immediate assistance The bindery production manager to give all necessary resources The patient to follow up with outpatient psych in 7 to 14 days upon discharge Will sign off. Thanks. Case staffed by Dr. Urena Mental Status Exam - Vital signs Last Vital Signs Temp 98.2 F 09/22/21 04:41 Pulse 103 H 09/22/21 04:41 Resp 18 09/22/21 04:41 BP 126/77 09/22/21 04:41 Pulse Ox 98 09/22/21 04:41
[2021-09-22 13:44] VITALS: BP 133/98
== END 2021-09-22 14:30 | disposition home or self-care (01) | DRG 872 ==
LOC: ED 17:34 → 4A 22:08 → 3A 09-09 16:51
PROVIDERS: ADMIT Hospitalist; ATTEND Internal Medicine
DX: A41.89 Other specified sepsis (principal); M62.82 Rhabdomyolysis; F11.20 Opioid dependence, uncomplicated; N39.0 Urinary tract infection, site not specified; Z20.822 Contact with and (suspected) exposure to COVID-19; E87.6 Hypokalemia; F32.9 Major depressive disorder, single episode, unspecified; F41.9 Anxiety disorder, unspecified; T40.601A Poisoning by unspecified narcotics, accidental (unintentional), initial encounter; Y92.89 Other specified places as the place of occurrence of the external cause; R56.9 Unspecified convulsions
CPT/HCPCS: 36415; 70450; 71045; 80048; 80053; 80074; 80307; 80320; 81001; 82550; 82962; 83735; 84100; 84702; 85007; 85025; 85027; 87040; 87076; 87086; 87186; 93005; 94640; G0378; J3490; J7060; J7070; G0480; J0696; J1650; J1953; J2060; J2310; J2405; J3480; J7030; J7040; J7120; Q0162; Q0177; U0003